=== PATIENT | male | born 1930 | race Caucasian/White ===

== ENCOUNTER 2016-09-05 03:26 | Emergency (ER) | payer MEDICARE, BC ==
[~2016-09-05] VITALS: Ht 180.3 cm; Wt 93.0 kg
[~2016-09-05 03:26] MED LIST: HYDR-3583 PO; LEVO250T33 PO; LEVO750T6 PO; TMSL.4C PO
--- OUTSIDE RECORDS SUMMARY | 2016-09-05 03:34 | XMS REPORT | Continuity of Care Document ---
Author Author [facility] Organization [facility] Address Unknown Phone Unavailable Allergies Medications Problems Procedures Results Encounters ACCT No. Visit Date/Time Discharge Status Pt. Type Provider Facility Loc./Unit Complaint [id number] 12/18/2012 14:25:00 2012 23:59:59 CLS Outpatient [id number] 12/12/2012 12:15:00 2012 17:15:00 DIS Emergency
--- NOTE | 2016-09-05 03:41 | ED GU-Male ---
General Stated Complaint: CAN'T URINATE Source: patient, spouse Exam Limitations: no limitations History of Present Illness Time seen by provider: 03:36 Initial Comments Patient presents to ER by private conveyance with his with complaint of inability to urinate since about 3 this afternoon when he had a cystoscopy by Dr. Daniel in [facility]. He states that they found several small areas of concern in his bladder for cancer and's were setting him up to go back inpatient to the hospital today for biopsies. He is concerned because his bladder is full he is having a lot of pain and unable to drain his bladder on his own. He's had no fevers chills rash nausea vomiting or diarrhea. He has no constipation. Allergies and Home Medications Allergies Coded Allergies: No Known Drug Allergies (Unverified , 07/23/10) Home Medications Donepezil HCl 10 Mg Tablet, 10 MG PO DAILY, #90 (Reported) Lisinopril 40 Mg Tablet, 40 MG PO DAILY, #90 (Reported) [place] 3 Polyunsat Fatty Acids 1,000 Mg Cap, 1,000 MG PO BID, (Reported) Oxybutynin Chloride 5 Mg Tablet, 5 MG PO BID, #60 (Reported) Simvastatin 20 Mg Tablet, 10 MG PO DAILY, #45 (Reported) Constitutional: No chills, No diaphoresis, No malaise Respiratory: No cough, No short of breath Cardiovascular: No chest pain, No edema Gastrointestinal: No abdominal pain, No constipation, No diarrhea, No nausea Genitourinary: denies burning, denies discharge Skin: No pruritus, No rash Past Eqniflq-Ohswvf-Emgzlw Hx Patient Social History Alcohol Use: Denies Use Recreational Drug Use: No Recent Foreign Travel: No Contact w/Someone Who Travel: No Immunizations Up To Date Date of Influenza Vaccine: Dec 10, 2012 Respiratory Hx Respiratory Disorders: No Cardiovascular Hx Cardiac Disorders: No Reproductive System Hx Reproductive Disorders: No Sexually Transmitted Disease: No Genitourinary Hx Genitourinary Disorders: Yes Genitourinary Disorders: Prostate Problems, Kidney Stones Gastrointestinal Hx Gastrointestinal Disorders: No Musculoskeletal Hx Musculoskeletal Disorders: No Endocrine Hx Endocrine Disorders: No HEENT HX ENT Disorders: Yes Hearing Impairment: Hard of Hearing Cancer Hx Cancer: Yes Cancer: Prostate Psychosocial Hx Psychiatric Problems: No Integumentary HX Skin/Integumentary Disorder: No Blood Transfusions Hx Blood Disorders: No Physical Exam Vital Signs Vital Sign - Last 12Hours 09/05/16 03:35 Temp 98.5 Pulse 68 Resp 20 B/P (MAP) 149/73 Capillary Refill : General Appearance: WD/WN, mild distress Cardiovascular: normal peripheral pulses, regular rate, rhythm Respiratory: lungs clear, normal breath sounds Gastrointestinal: normal bowel sounds, soft, tenderness (suprapubic) Male: normal genitalia, no hernia Back: normal inspection, no CVA tenderness Neurologic/Psychiatric: alert, oriented x 3 Skin: normal color, warm/dry Progress/Results/Core Measures Results/Orders Lab Results Laboratory Tests Test 09/05/16 04:00 Range/Units Urine Color YELLOW Urine Clarity SLIGHTLY CLOUDY Urine pH 7 5-9 Urine Specific [place] 1.010 L 1.016-1.022 Urine Protein 2+ H NEGATIVE Urine Glucose (UA) NEGATIVE NEGATIVE Urine Ketones NEGATIVE NEGATIVE Urine Nitrite NEGATIVE NEGATIVE Urine Bilirubin NEGATIVE NEGATIVE Urine Urobilinogen NORMAL NORMAL MG/DL Urine Leukocyte Esterase 2+ H NEGATIVE Urine RBC (Auto) 5+ H NEGATIVE Urine RBC TNTC H /HPF Urine WBC 5-10 H /HPF Urine Crystals NONE /LPF Urine Bacteria TRACE /HPF Urine Casts NONE /LPF Urine Mucus NEGATIVE /LPF Urine Culture Indicated YES My Orders Orders - JDTIERNEY J Lee Cath Insertion (09/05/16 03:41) Urinalysis (09/05/16 03:41) Urine Culture (09/05/16 04:00) Lidocaine 2% (Urojet) (Xylocaine Urojet) (09/05/16 04:20) Ceftriaxone Injection (Rocephin Injectio (09/05/16 05:00) Vital Signs/I&O Vital Sign - Last 12Hours 09/05/16 03:35 Temp 98.5 Pulse 68 Resp 20 B/P (MAP) 149/73 Progress Note : Time: 05:32 Progress Note Urinalysis not totally convincing for infection but we'll go ahead and cover him with Rocephin and have him call his urologist in the morning. Leave the indwelling Lee catheter. He was able to avoid approximately 250 cc and a bladder scan postvoid residual showed about 460. Departure Impression Impression: Primary Impression: Urinary retention Additional Impression: Urinary tract infection Qualified Codes: N30.01 - Acute cystitis with hematuria Disposition: HOME, SELF-CARE Condition: Improved Departure-Patient Inst. Decision time for Depature: 05:33 Referrals: ARVIN QUARLES MD (PCP) Primary Care Physician KALYAN MACEDO DO (Family) Primary Care Physician Patient Instructions: Lee Catheter, Male Add. Discharge Instructions: You're being sent home with a Lee catheter and leg bag with instructions on how to drain it. If you start having fever or chills or nausea then you should return to the ER. You will be covered for the next 24 hours with the shot of antibiotics that we have given you in the ER. 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 This morning you need to call the urologist and discuss with him the changes and follow his instructions. Scripts Cephalexin (Cephalexin) 500 Mg Tablet 500 MG PO BID for 10 Days, #20 TAB 0 Refills Prov: TIERNEY MILES 09/05/16 Copy Copies To 1: ARVIN QUARLES MD, TITUS J Sep 05, 2016 03:41
[2016-09-05 04:07] LABS: BILIRUBIN,URINE NEGATIVE (NEGATIVE); KETONES,URINE NEGATIVE (NEGATIVE); LEUKOCYTE ESTERASE ,URINE 2+ (NEGATIVE); NITRITE,URINE NEGATIVE (NEGATIVE); PH,URINE 7 (5-9); PROTEIN,URINE 2+ (NEGATIVE); UROBILINOGEN,URINE NORMAL (NORMAL)
[2016-09-05] MEDS: LIDOCAINE UROJET 2% GEL 10 ML PKG ONE (04:30)
[2016-09-05] MEDS ORDERED: cefTRIAXone INJECTION 1,000 MG in NS (IVPB) 50 ML IV ONE (05:00)
[2016-09-05] MEDS ORDERED: OMG1KC PO (05:19)
[2016-09-05] MEDS ORDERED: OXYB5TAB9 PO (05:19)
[2016-09-05] MEDS ORDERED: SIMV20TA3 PO (05:19)
[2016-09-05] MEDS ORDERED: DONE10TA41 PO (05:19)
[2016-09-05] MEDS ORDERED: LISI40TA PO (05:19)
[2016-09-05] MEDS ORDERED: CALC600T12 PO (05:34)
[2016-09-05] MEDS ORDERED: MULT-1029 PO (05:34)
[2016-09-05] MEDS ORDERED: ASPI-999 PO (05:34)
[2016-09-05] MEDS ORDERED: POTA99TA18 PO (05:34)
[2016-09-05] MEDS ORDERED: MAGN400C PO (05:34)
[2016-09-05] MEDS ORDERED: CEPH500T PO (05:37)
[2016-09-05] MEDS: cefTRIAXone 1 GM (ROCEPHIN) VIAL IM ONE (05:44)
[2016-09-05] MEDS: LIDOCAINE 1% INJ 20 ML (XYLOCAINE) VIAL INJ ONE (05:44)
[2016-09-05 06:10] VITALS: BP 157/81
== END 2016-09-05 06:10 | disposition home or self-care (01) ==
LOC: EDUNIT# 03:26 → ER 03:30
DX: N39.0 Urinary tract infection, site not specified (principal); Z87.442 Personal history of urinary calculi; Z85.46 Personal history of malignant neoplasm of prostate
CPT/HCPCS: 51702; 81000; 87088; 96372

== ENCOUNTER 2016-09-06 20:33 | Emergency (ER) | payer MEDICARE, BC ==
[~2016-09-06] VITALS: Ht 180.3 cm; Wt 93.0 kg
[~2016-09-06 20:33] MED LIST changes: +ASPI-999 PO; +CALC600T12 PO; +CEPH500T PO; +DONE10TA41 PO; +LISI40TA PO; +MAGN400C PO; +MULT-1029 PO; +OMG1KC PO; +OXYB5TAB9 PO; +POTA99TA18 PO; +SIMV20TA3 PO
--- NOTE | 2016-09-06 20:54 | ED GU-Male ---
General Chief Complaint: -Male Stated Complaint: CATHETER PROBLEMS Nursing Triage Note: patient reports sepulveda wouldn't drain Source: patient, spouse Exam Limitations: no limitations History of Present Illness Time seen by provider: 20:45 Initial Comments Patient was seen yesterday with inability urinate and a coud Sepulveda catheter was placed. Patient comes in today with pain in his penis and super. Region and inability to pass urine again. He is drinking adequate fluids per him and his . He has no fevers chills nausea vomiting diarrhea. He did take a pain pill that he had left over for his previous operation. He has planned a procedure for biopsy of 2 masses in his bladder with his urologist on Friday in 3 days from now. Allergies and Home Medications Allergies Coded Allergies: No Known Drug Allergies (Unverified , 07/23/10) Home Medications Aspirin 81 Mg Tab.chew, 81 MG PO DAILY, (Reported) Calcium Carbonate 600 Mg Tablet, 2,400 MG PO DAILY, (Reported) Cephalexin 500 Mg Tablet, 500 MG PO BID for 10 Days, #20 Ref 0 Prescribed by: TIERNEY MILES on 09/05/16 0537 Donepezil HCl 10 Mg Tablet, 10 MG PO DAILY, #90 (Reported) Lisinopril 40 Mg Tablet, 40 MG PO DAILY, #90 (Reported) Magnesium Oxide 400 Mg Capsule, 400 MG PO DAILY, (Reported) Multivit-Min/FA/Lycopene/Lut 1 Each Tablet, 1 EACH PO DAILY, (Reported) [place] 3 Polyunsat Fatty Acids 1,000 Mg Cap, 1,000 MG PO BID, (Reported) Oxybutynin Chloride 5 Mg Tablet, 5 MG PO BID, #60 (Reported) Potassium Gluconate 99 Mg Tablet.er, 99 MG PO DAILY, (Reported) Simvastatin 20 Mg Tablet, 10 MG PO DAILY, #45 (Reported) Constitutional: No chills, No fever, No malaise Cardiovascular: No chest pain, No syncope Gastrointestinal: see HPI, abdominal pain (Suprapubic suprapubic), No constipation, No diarrhea, No nausea, No vomiting Genitourinary: see HPI, burning, denies discharge, denies dysuria, denies frequency, denies flank pain, pain Musculoskeletal: see HPI, No back pain, No joint pain Skin: No pruritus, No rash Past Ssoomns-Hxewpe-Mnwjvv Hx Patient Social History Alcohol Use: Denies Use Recreational Drug Use: No Smoking Status: Never a Smoker 2nd Hand Smoke Exposure: No Recent Foreign Travel: No Contact w/Someone Who Travel: No Recent Infectious Disease Expo: No Recent Hopitalizations: No Immunizations Up To Date Date of Influenza Vaccine: Dec 10, 2012 Seasonal Allergies Seasonal Allergies: Yes Surgeries Surgeries: Prostatectomy Respiratory Hx Respiratory Disorders: No Cardiovascular Hx Cardiac Disorders: No Cardiac Disorders: High Cholesterol, Hypertension Reproductive System Hx Reproductive Disorders: No Sexually Transmitted Disease: No Genitourinary Hx Genitourinary Disorders: Yes Genitourinary Disorders: Prostate Problems, Kidney Stones Gastrointestinal Hx Gastrointestinal Disorders: No Musculoskeletal Hx Musculoskeletal Disorders: No Endocrine Hx Endocrine Disorders: No HEENT HX ENT Disorders: Yes Hearing Impairment: Hard of Hearing Cancer Hx Cancer: Yes Cancer: Prostate Psychosocial Hx Psychiatric Problems: No Integumentary HX Skin/Integumentary Disorder: No Blood Transfusions Hx Blood Disorders: No Physical Exam Vital Signs Vital Sign - Last 12Hours 09/06/16 20:41 Temp 98.2 Pulse 80 Resp 18 B/P (MAP) 165/78 Pulse Ox 94 Capillary Refill : Less Than 3 Seconds General Appearance: WD/WN, no apparent distress HEENT: PERRL/EOMI, pharynx normal Cardiovascular: normal peripheral pulses, regular rate, rhythm Respiratory: chest non-tender, lungs clear Gastrointestinal: normal bowel sounds, non tender, soft, No distended Male: normal genitalia (Sepulveda catheter in place and a leg bag dark yellow urine after irrigation with 30 cc of normal saline and gentle aspiration. A modest size dark red blood clot was passed.) Extremities: normal range of motion, normal capillary refill Neurologic/Psychiatric: alert, oriented x 3 Progress/Results/Core Measures Results/Orders Vital Signs/I&O Vital Sign - Last 12Hours 09/06/16 20:41 Temp 98.2 Pulse 80 Resp 18 B/P (MAP) 165/78 Pulse Ox 94 Blood Pressure Mean: 107 Progress Note : Time: 20:52 Progress Note Past o'clock and thought the patient had a do gentle irrigation with 30 cc of sterile water and gentle aspiration. We'll send him home with some new 60 cc irrigation syringes and alcohol wipes as well as nursing instruction on how to utilize these. He is now freely passing lorne colored urine after the clot Cleared. He is taking antibiotics as prescribed. Departure Impression Impression: Primary Impression: Urethral obstruction Additional Impression: Urinary tract infection Qualified Codes: N30.01 - Acute cystitis with hematuria Disposition: HOME, SELF-CARE Condition: Improved Departure-Patient Inst. Decision time for Depature: 20:55 Referrals: ARVIN QUARLES MD (PCP/Family) Primary Care Physician Patient Instructions: How to Care for Your Sepulveda Catheter, Male Add. Discharge Instructions: If you're unable to pass urine from her Sepulveda catheter you should take a clean irrigation syringe out wipe all the connections down with alcohol wipes and then gently push 30 cc of sterile normal saline into the catheter. If you do not have normal saline you may also use sterile water. Then allow the urine to drain. If it does not drain you may apply gentle suction using the syringe. If you're still unable to get urine the past after doing this for you're having fevers, chills, nausea, intense pain then you should return to the ER immediately. Do not put more than 60 cc total in the bladder at a time. All discharge instructions reviewed with patient and/or family. Voiced understanding. Copy Copies To 1: ARVIN QUARLES MD, TITUS J Sep 06, 2016 20:54
[2016-09-06 21:07] VITALS: BP 165/78
--- OUTSIDE RECORDS SUMMARY | 2016-09-10 08:18 | XMS REPORT | Continuity of Care Document ---
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 Procedures Results Test Result Range Complete urinalysis with reflex to culture - 09/05/16 04:00 Urine color determination YELLOW NRG Urine clarity determination SLIGHTLY CLOUDY NRG Urine pH measurement by test strip 7 5- 9 Specific gravity of urine by test strip 1.010 1.016-1.022 Urine protein assay by test strip, semi-quantitative 2+ NEGATIVE Urine glucose detection by automated test strip NEGATIVE NEGATIVE Erythrocytes detection in urine sediment by light microscopy 5+ NEGATIVE Urine ketones detection by automated test strip NEGATIVE NEGATIVE Urine nitrite detection by test strip NEGATIVE NEGATIVE Urine total bilirubin detection by test strip NEGATIVE NEGATIVE Urine urobilinogen measurement by automated test strip (mass/volume) NORMAL NORMAL Urine leukocyte esterase detection by dipstick 2+ NEGATIVE Automated urine sediment erythrocyte count by microscopy (number/high power field) TNTC NRG Automated urine sediment leukocyte count by microscopy (number/high power field ) [HPF] NRG Bacteria detection in urine sediment by light microscopy TRACE NRG Crystals detection in urine sediment by light microscopy NONE NRG Casts detection in urine sediment by light microscopy NONE NRG Mucus detection in urine sediment by light microscopy NEGATIVE NRG Complete urinalysis with reflex to culture YES NRG Bacterial urine culture - 09/05/16 04:00 Bacterial urine culture NG NRG Encounters ACCT No. Visit Date/Time Discharge Status Pt. Type Provider Facility Loc./Unit Complaint [id number] 09/06/2016 20:35:00 2016 21:07:00 DIS Emergency TIERNEY MILES MD [facility] ER CATHETER PROBLEMS [id number] 09/05/2016 03:30:00 2016 06:10:00 DIS Emergency TIERNEY MILES MD [facility] ER CAN'T URINATE [id number] 12/18/2012 14:25:00 2012 23:59:59 CLS Outpatient KIM MORIN APRN [facility] RAD ABNORMAL CT [id number] 12/12/2012 12:15:00 2012 17:15:00 DIS Emergency
== END 2016-09-06 21:07 | disposition home or self-care (01) ==
LOC: EDUNIT# 20:33 → ER 20:35
DX: N13.9 Obstructive and reflux uropathy, unspecified (principal); N39.0 Urinary tract infection, site not specified; I10 Essential (primary) hypertension; E78.00 Pure hypercholesterolemia, unspecified; Z87.442 Personal history of urinary calculi; Z79.82 Long term (current) use of aspirin; Z90.79 Acquired absence of other genital organ(s); Z96.0 Presence of urogenital implants
CPT/HCPCS: 99282

== ENCOUNTER 2017-02-16 07:02 | Emergency (ER) | payer MEDICARE, BC ==
[~2017-02-16] VITALS: Ht 180.3 cm; Wt 95.3 kg
--- OUTSIDE RECORDS SUMMARY | 2017-02-16 07:08 | XMS REPORT | Encounter Summary ---
Author Author [facility] Organization [facility] Address Unknown Phone Unavailable Care Team Providers Care Loom Starter Name Role Phone PCP Unavailable Reason for Visit * Reason Comments Urinary Problem Encounter Details Date Type Department Care Team Description 02/13/2017 Telephone [facility] Woo Hernandez MD Urinary Problem Physicians - Urology [address] [facility] [address] [place] [address] [address] [facility] [place] [id number] Social History Tobacco Use Types Packs/Day Years Used Date Never Smoker Smokeless Tobacco: Never Used Alcohol Use Drinks/Week oz/Week Comments No Sex Assigned at Date Recorded Not on file as of this encounter Miscellaneous Notes * Telephone Encounter - Woo Hernandez MD - 02/13/2017 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 Patient has significant suprapubic discomfort and the urge to urinate but has had only small amount of urine per urethra. No abdominal pain otherwise and denies fevers, chills, nausea or vomiting. Advised patient to be evaluated at nearest ER as he is likely needing placement of catheter. Asked patient to call back tomorrow AM if he needed catheter placed in order to further guide him. Patient agreeable with above plan. Woo Hernandez MD PGY-2 Urology Resident in this encounter Plan of Treatment Not on fileas of this encounter Visit Diagnoses Not on filein this encounter
--- OUTSIDE RECORDS SUMMARY | 2017-02-16 07:08 | XMS REPORT | Clinical Summary ---
Author Author [facility] Organization [facility] Address Unknown Phone Unavailable Care Team Providers Care Cost Estimating Clerk Name Role Phone PCP Unavailable Source Comments Some departments are not documenting in the electronic medical record. If you do not see the information that you expected, contact Release of Information in the Health Information Management department at [phone] for further assistance in locating additional records.[facility] Allergies No Known Allergies Current Medications Prescription Sig. Disp. Refills Start End Date Status Date oxybutynin chloride Take 5 mg by mouth twice Active (DITROPAN) 5 mg tablet daily. simvastatin (ZOCOR) 20 mg Take 20 mg by mouth at Active tabletIndications: half bedtime daily. tab once daily Indications: half tab once daily lisinopril (PRINIVIL, Take 40 mg by mouth Active ZESTRIL) 40 mg tablet daily. donepezil (ARICEPT) 10 mg Take 10 mg by mouth at Active tablet bedtime daily. CALCIUM POIndications: 2 Take 600 mg by mouth Active tabs twice daily twice daily. Indications: 2 tabs twice daily Potassium 99 mg tab Take 1 tablet by mouth Active daily. Magnesium 250 mg tab Take 1 tablet by mouth Active daily. CRANBERRY FRUIT EXTRACT Take 1 tablet by mouth Active (CRANBERRY PO) daily. oxyCODONE (ROXICODONE, Take 1 tablet by mouth 10 tablet 0 10/25/19 Active OXY-IR) 5 mg tablet every 4 hours as needed 17 (moderate to severe pain) polyethylene glycol 3350 Take 17 g by mouth twice 238 g 0 02/14/20 Active (MIRALAX) 17 gram/dose daily. 17 powder phenazopyridine Take 1 tablet by mouth 10 tablet 0 02/14/20 Active (PYRIDIUM) 200 mg tablet three times daily as 17 17 needed for Pain for up to 3 days. Take after meals. acetaminophen (TYLENOL) Take 1 tablet by mouth 0 02/14/20 Active 500 mg tablet every 6 hours as needed 17 for Pain. Max of 4,000 mg of acetaminophen in 24 hours. ciprofloxacin (CIPRO) 250 Take 1 tablet by mouth 3 tablet 0 02/14/20 Active mg tablet every 12 hours. 17 phenazopyridine Take 1 tablet by mouth 10 tablet 1 10/25/19 Discontin (PYRIDIUM) 200 mg tablet three times daily as 17 17 ued needed for Pain. Take after meals for up to [address] 1 tablet under 30 tablet 2 10/25/19 Discontin (LEVSIN/SL) 0.125 mg tongue every 4 hours as 17 17 ued sublingual tablet needed (bladder spasms). Active Problems Problem Noted Date Bladder cancer (HCC) 10/17/2016 Overview: Added automatically from request for surgery [id number] Malignant neoplasm of overlapping sites of bladder (HCC) 09/10/2016 Overview: 86 year old male referred to Dr. Evans on 08/08/16 for evaluation of gross hematuria. Had blood in his urine approximately 6-8 months. Cystoscopy findings of left bladder wall tumor. Patient with history of prostate cancer in 1991 treated with radical prostatectomy. 08/08/16 Cxbladder detect score: 0.43 08/26/16 PSA: <0.01 08/27/16 Creatinine: 1.1 GFR 68 09/11/15 Cystoscopy, dilation of bladder neck contracture with Fazal sound to 28 Yemen[place], biopsy of the bladder with mapping: cTis on L, R, and posterior bladder wall biopsies. [facility] Second Opinion pathology: Same as above. Muscularis propria present. 09/24/16 Bone scan impression: No scintigraphic evidence for blastic metastasis 09/26/16 CT Urogram: Bilateral nephrolithiasis, small bilateral renal cortitcal cysts. No hydronephrosis. Previous prostatectomy. No lymphadenectomy. Colonic diverticulosis without diverticulitis L ast Assessment & Plan: Kevin Gilbert is a 86 y.o. male who presents for evaluation of cTis bladder cancer. After discussing the risks and benefits of blue light cystoscopy with TURBT, the patient has chosen to proceed with this management option. - to OR for Blue light cystoscopy with TURBT on 10/24/16 - Case requested and consented Encounters Date Type Specialty Care Team Description 02/13/2017 Hospital Elgin Solorzano, Bladder cancer (HCC) Encounter MD 02/13/2017 Telephone Urology Woo Hernandez MD Urinary Problem 02/13/2017 Pharmacy Visit 02/13/2017 Procedure Pass 02/13/2017 Surgery Elgin Solorzano, CYSTOSCOPY WITH TRANSURETHRAL RESECTION OF BLADDER TUMOR 02/12/2017 Anesthesia Catalina Kirkpatrick, SYSTEMS TECHNOLOGIST Event 01/17/2017 Prep for Case Oncology Elgin Solorzano MD 01/08/2017 Telephone Urology Elgin Solorzano, Results 01/03/2017 Hospital Lab Elgin Solorzano, Malignant neoplasm of Encounter overlapping sites of bladder (HCC) 01/03/2017 Procedure visit Urology Elgin Solorzano, Malignant neoplasm of MD overlapping sites of bladder (HCC) (Primary Dx) 01/03/2017 Pharmacy Visit from Last 3 Months Family History Medical History Relation Name Comments Diabetes Paternal Grandfather Relation Name Status Comments Paternal Grandfather Social History Tobacco Use Types Packs/Day Years Used Date Never Smoker Smokeless Tobacco: Never Used Alcohol Use Drinks/Week oz/Week Comments No Sex Assigned at Date Recorded Not on file Last Filed Vital Signs Vital Sign Reading Time Taken Blood Pressure 168/85 02/13/2017 1:00 PM INGREDIENT SCALER Pulse 67 02/13/2017 1:15 PM INGREDIENT SCALER Temperature 36.3 C (97.3 F) 02/13/2017 12:05 PM INGREDIENT SCALER Respiratory Rate - - Oxygen Saturation 97% 02/13/2017 1:15 PM INGREDIENT SCALER Inhaled Oxygen - - Concentration Weight 94.6 kg (208 lb 8.9 oz) 02/13/2017 10:09 AM INGREDIENT SCALER Height 180.3 cm (5' 11") 02/13/2017 10:09 AM INGREDIENT SCALER Body Mass Index 29.09 02/13/2017 10:09 AM INGREDIENT SCALER Plan of Treatment Health Maintenance Due Date Last Done Comments PHYSICAL (COMPREHENSIVE) 08/25/1939 EXAM PERTUSSIS VACCINE 08/25/1943 TETANUS VACCINE 1949 SHINGLES VACCINE 1992 PREVNAR/PNEUMOVAX (#1) 1997 INFLUENZA VACCINE 10/01/2016 Procedures Procedure Name Priority Date/Time Associated Diagnosis Comments CYSTOSCOPY WITH 02/13/2017 Bladder cancer (HCC) TRANSURETHRAL RESECTION 11:30 AM INGREDIENT SCALER OF BLADDER TUMOR Special Needs 01/21 PER CHANGE FORM, CASE MOVED FROM 02/12 TO 02/13, REQUEST 1130 START - BP (1047) CO CYSTOURETHROSCOPY Routine 01/06/2017 Malignant neoplasm of Results for this 9:32 AM INGREDIENT SCALER overlapping sites of procedure are in the bladder (HCC) results section. from Last 3 Months Results * CYTOGENETICS SCAN (01/13/2017 2:44 PM) Narrative Ordered by an unspecified provider. * CYSTOSCOPY (01/06/2017 9:32 AM) Specimen Performing Laboratory IN CLINIC Narrative Elgin Solorzano MD 01/06/20179:32 AM Date : 01/06/2017 Surgeon: Elgin Solorzano MD, [facility] Preoperative Diagnosis: bladder cancer Postoperative Diagnosis: bladder cancer Principal Procedure: Flexible Cystoscopy Description of procedure: After the consent was obtained, the patient was taken to the cystoscopy suite. The patient was patient was placed in the lithotomy position. Two percent lidocaine jelly was administered into the urethral for local anesthesia. The genital area was prepped and draped in the normal sterile fashion. A flexible cystoscope was advanced into the patient's urethra and then into the bladder. The bladder was systematically examined and visualized in its entirety. Both ureteral orifices were note to be normal in appearance and location. On the posterior wall of the bladder there was a fair bit of erythema.There was no obvious definitive tumor.The scope was then removed. The patient tolerated the procedure well. He was given antibiotics to cover the instrumentation. He was discharged from the clinic in stable condition. * CHROMOSOMES FISH URINE (01/03/2017 3:06 PM) Component Value Ref Range Chromosomes Fish Urine SEE BIT TAPPER FOR REPORT Specimen Performing Laboratory MAIN LAB [address] [place] [address] * NON-TRAFFIC OR SYSTEM DISPATCHER CYTOLOGY (BODY FLUIDS/TISSUE) (01/03/2017 1:18 PM) Component Value Ref Range Cytology [facility] [email or web address] Department of Pathology and Laboratory Medicine [address] [place] [address] Surgical Pathology Office: [phone] CYTOLOGY REPORT NAME: KEVIN GILBERT CYTOLOGY #: [id number] MR #: [id number] ALT ID #: [id number] #: [id number] LOCATION: UROL DATE OF PROCEDURE: 01/03/2017 AGE: 86 SEX: M DATE RECEIVED: 01/06/2017 : 1932 TIME RECEIVED: 13:18 PHYSICIAN: ELGIN SOLORZANO MD DATE OF REPORT: 01/07/2017 COPY TO: DATE OF PRINTIN01/07/2017 Material Received: A: Urine (Voided) History: 86-year old male with history of urothelial carcinoma in situ, status post BCG treatment. Gross Description: (1tp) 20ml clear, yellow fluid. ################################################## ###################### Final Diagnosis: A. Urine (Voided): Negative for high grade urothelial carcinoma. Acute inflammation. Attestation: By this signature, I attest that I have personally formulated the final interpretation expressed in this report and that the above diagnosis is based upon my examination of the slides and/or other material indicated in this report. +++Electronically Signed Out By+++ xc/01/07/2017 Interpreted by: Farnaz Acuna MD, PhD NAA Ceja Resident Specimen Performing Laboratory [facility] RESULTS from Last 3 Months
--- OUTSIDE RECORDS SUMMARY | 2017-02-16 07:08 | XMS REPORT | Continuity of Care Document ---
Author Author [facility] Organization [facility] Address Unknown Phone Unavailable Care Team Providers Care Risk Developer Name Role Phone [employer] Unavailable Unavailable Problems Medications Allergies, Adverse Reactions, Alerts Immunizations Results Vital Signs Encounters Location Location Details Encounter Type Encounter Number Reason For Visit Attending Provider ADM Date DC Date Status Source SPECIMEN [id number] ELGIN LOWERY 10/07/201608/2016 Active [facility] OP SURGERY [id number] ELGIN LOWERY 10/24/2016 Active [facility] O ELGIN LOWERY 01/03/2017 Active [facility] Procedures Plan of Care Social History Assessment and Plan Family History Value Date Source Advance Directives Order Name Results Value Date Source
--- OUTSIDE RECORDS SUMMARY | 2017-02-16 07:09 | XMS REPORT | Encounter Summary ---
Author Author [facility] Organization [facility] Address Unknown Phone Unavailable Care Team Providers Care Graphic Designer Name Role Phone PCP Unavailable Encounter Details Date Type Department Care Team Description 02/13/2017 Procedure Pass Main Operating Room [address] [place] [address] Social History Tobacco Use Types Packs/Day Years Used Date Never Smoker Smokeless Tobacco: Never Used Alcohol Use Drinks/Week oz/Week Comments No Sex Assigned at Date Recorded Not on file as of this encounter Plan of Treatment Not on fileas of this encounter Visit Diagnoses Not on filein this encounter
--- OUTSIDE RECORDS SUMMARY | 2017-02-16 07:09 | XMS REPORT | Encounter Summary ---
Author Author [facility] Organization [facility] Address Unknown Phone Unavailable Care Team Providers Care Bucket Pusher Name Role Phone PCP Unavailable Reason for Visit * Reason Comments Bladder Cancer * Outpatient Surgery (Routine) Status Reason Specialty Diagnoses / Referred By Referred To Procedures Contact Contact No Auth Needed Urology Diagnoses Kaia Solorzano Urology Malignant Jean Villatoro MD 2ND FLOOR POD A neoplasm of [address] MED OFFICE [place]LDG sites of bladder [place] [address] [place] (HCC) [place] [address] RET - F/U AFTER [address] Phone: BCG TREATMENTS W/ CYSTO [phone] P Fax: rocedures [phone] [place] CYSTOURETHROSCOP Y PROCEDURE - 30 Encounter Details Date Type Department Care Team Description 01/03/2017 Procedure visit [facility] Jean Solorzano , Malignant neoplasm of Physicians - Urology overlapping sites of 2ND FLOOR POD A [address] bladder (HCC) (Primary [address] [place] [address] Dx) [place] [address] [place] [phone] [address] [phone] Social History Tobacco Use Types Packs/Day Years Used Date Never Smoker Smokeless Tobacco: Never Used Alcohol Use Drinks/Week oz/Week Comments No Sex Assigned at Date Recorded Not on file as of this encounter Last Filed Vital Signs Vital Sign Reading Time Taken Blood Pressure 162/71 01/03/2017 2:37 PM CDT Pulse 71 01/03/2017 2:37 PM CDT Temperature - - Respiratory Rate - - Oxygen Saturation - - Inhaled Oxygen - - Concentration Weight 92 kg (202 lb 12.8 oz) 01/03/2017 2:37 PM CDT Height 180.3 cm (5' 11") 01/03/2017 2:37 PM CDT Body Mass Index 28.28 01/03/2017 2:37 PM CDT in this encounter Progress Notes * Jena Solorzano MD - 01/03/2017 2:30 PM CDT Formatting of this note may be different from the original. Date of Service: 01/03/2017 Subjective: Kevin Gilbert is a 86 y.o. male. History of Present Illness 86 yo white male with a history of prostate cancer s/p RRP followed by XRT in 1991. The patient had a 6-8 month history of gross hematuria and was found to have CIS. He was counseled regarding cystectomy but elected to try a course of TURBT/BCG initially. He has completed his BCG and returns today. He continues to be incontinent. Review of Systems Genitourinary: Incontinence Objective: CALCIUM PO Take 600 mg by mouth twice daily. Indications: 2 tabs twice daily CRANBERRY FRUIT EXTRACT (CRANBERRY PO) Take 1 tablet by mouth daily. donepezil (ARICEPT) 10 mg tablet Take 10 mg by mouth at bedtime daily. hyoscyamine sulfate (LEVSIN/SL) 0.[address] 1 tablet under tongue every 4 hours as needed (bladder spasms). lisinopril (PRINIVIL, ZESTRIL) 40 mg tablet Take 40 mg by mouth daily. Magnesium 250 mg tab Take 1 tablet by mouth daily. oxybutynin chloride (DITROPAN) 5 mg tablet Take 5 mg by mouth twice daily. oxyCODONE (ROXICODONE, OXY-IR) 5 mg tablet Take 1 tablet by mouth every 4 hours as needed (moderate to severe pain) phenazopyridine (PYRIDIUM) 200 mg tablet Take 1 tablet by mouth three times daily as needed for Pain. Take after meals for up to 2 days. Potassium 99 mg tab Take 1 tablet by mouth daily. simvastatin (ZOCOR) 20 mg tablet Take 20 mg by mouth at bedtime daily. Indications: half tab once daily Vitals: 01/03/17 1437 BP: 162/71 Pulse: 71 Weight: 92 kg (202 lb 12.8 oz) Height: 180.3 cm (71") Body mass index is 28.28 kg/(m^2). Physical Exam Constitutional: He appears well-developed and well-nourished. No distress. Genitourinary: Penis normal. Skin: He is not diaphoretic. Cysto Some red areas remain but it is difficult to say whether this is inflammation or recurrent disease. No obvious definitive tumor. Assessment and Plan: 1. 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 Will send cytology and FISH if positive then will need repeat TURBT. If not then will follow up in 3 months and then start BCG maintenance. in this encounter Procedure Notes * Jean Solorzano MD - 01/03/2017 2:30 PM CDT Associated Order(s): CYSTOSCOPY Procedure(s): MS CYSTOURETHROSCOPY Pre-Procedure Diagnose(s): Malignant neoplasm of overlapping sites of bladder ( HCC) Date : 01/06/2017 Surgeon: Jean Solorzano MD, [facility] Preoperative Diagnosis: bladder cancer Postoperative Diagnosis: bladder [...] bladder there was a fair bit of erythema. There was no obvious definitive tumor. The scope was then removed. The patient tolerated the procedure well. He was given antibiotics to cover the instrumentation. He was discharged from the clinic in stable condition. in this encounter Plan of Treatment Name Priority Associated Diagnoses Order Schedule CYTOLOGY URINES Routine Malignant neoplasm of Ordered: 01/03/2017 overlapping sites of bladder (HCC) CHROMOSOMES FISH URINE Routine Malignant neoplasm of Ordered: 01/03/2017 overlapping sites of bladder (HCC) as of this encounter Procedures Procedure Name Priority Date/Time Associated Diagnosis Comments MS CYSTOURETHROSCOPY Routine 01/06/2017 Malignant neoplasm of Results for this 9:32 AM CLOTH SHRINKING SUPERVISOR overlapping sites of procedure are in the bladder (HCC) results section. in this encounter Results * CYTOGENETICS SCAN (01/13/2017 2:44 PM) Narrative Ordered by an unspecified provider. * CYSTOSCOPY (01/06/2017 9:32 AM) Specimen Performing Laboratory IN CLINIC Narrative Jean Solorzano MD 01/06/20179:32 AM Date : 01/06/2017 Surgeon: Jean Solorzano MD, [facility] Preoperative Diagnosis: bladder cancer Postoperative Diagnosis: bladder [...] discharged from the clinic in stable condition. in this encounter Visit Diagnoses Diagnosis Malignant neoplasm of overlapping sites of bladder (HCC) - Primary Malignant neoplasm of other specified sites of bladder in this encounter
--- OUTSIDE RECORDS SUMMARY | 2017-02-16 07:09 | XMS REPORT | Encounter Summary ---
Author Author [facility] Organization [facility] Address Unknown Phone Unavailable Care Team Providers Care Radiology Special Procedure Tech Name Role Phone PCP Unavailable Reason for Visit * Reason Comments Results Encounter Details Date Type Department Care Team Description 01/08/2017 Telephone [facility] Jean Solorzano, Results Physicians - Urology MD [address]ND FLO[address] POD [address] [place] [address] [place] [phone] [phone] Social History Tobacco Use Types Packs/Day Years Used Date Never Smoker Smokeless Tobacco: Never Used Alcohol Use Drinks/Week oz/Week Comments No Sex Assigned at Date Recorded Not on file as of this encounter Miscellaneous Notes * Telephone Encounter - Nathalia Gusman - 01/08/2017 10:55 AM ACID LOADER Notified pt of urine cytology results negative for high grade urothelial carcinoma. Will call with FISH results once available. No questions. * Telephone Encounter - DelphineamberlyNathalia - 01/08/2017 10:55 AM ACID LOADER ----- Message from Jean Solorzano MD sent at 01/07/2017 5:56 PM ACID LOADER -- --- Can you let him know but let him know his FISH is still pending Thanks ----- Message ----- From: Dandre In Results Misys Sent: 01/07/2017 3:12 PM To: Jean Solorzano MD in this encounter Plan of Treatment Not on fileas of this encounter Visit Diagnoses Not on filein this encounter
--- OUTSIDE RECORDS SUMMARY | 2017-02-16 07:09 | XMS REPORT | Encounter Summary ---
Author Author [facility] Organization [facility] Address Unknown Phone Unavailable Care Team Providers Care Blister Rust Eradicator Name Role Phone PCP Unavailable Encounter Details Date Type Department Care Team Description 02/13/2017 Pharmacy Visit [facility] [address] [place] [address] Social History Tobacco Use Types Packs/Day Years Used Date Never Smoker Smokeless Tobacco: Never Used Alcohol Use Drinks/Week oz/Week Comments No Sex Assigned at Date Recorded Not on file as of this encounter Plan of Treatment Not on fileas of this encounter Visit Diagnoses Not on filein this encounter
--- OUTSIDE RECORDS SUMMARY | 2017-02-16 07:09 | XMS REPORT | Encounter Summary ---
Author Author [facility] Organization [facility] Address Unknown Phone Unavailable Care Team Providers Care Director Surface Transportation Name Role Phone PCP Unavailable Encounter Details Date Type Department Care Team Description 01/03/2017 Hospital [facility] Elgin Solorzano, Malignant neoplasm of Encounter [address] [place] [address] bladder (HCC) [place] [address] [place], [place] [phone] Social History Tobacco Use Types Packs/Day Years Used Date Never Smoker Smokeless Tobacco: Never Used Alcohol Use Drinks/Week oz/Week Comments No Sex Assigned at Date Recorded Not on file as of this encounter Medications at Time of Discharge Medication Sig. Disp. Refills Start Date End Date CALCIUM POIndications: 2 Take 600 mg by mouth tabs twice daily twice daily. Indications: 2 tabs twice daily CRANBERRY FRUIT EXTRACT Take 1 tablet by mouth (CRANBERRY PO) daily. donepezil (ARICEPT) 10 mg Take 10 mg by mouth at tablet bedtime daily. lisinopril (PRINIVIL, Take 40 mg by mouth ZESTRIL) 40 mg tablet daily. Magnesium 250 mg tab Take 1 tablet by mouth daily. oxybutynin chloride Take 5 mg by mouth twice (DITROPAN) 5 mg tablet daily. oxyCODONE (ROXICODONE, Take 1 tablet by mouth 10 tablet 0 10/24/2016 OXY-IR) 5 mg tablet every 4 hours as needed (moderate to severe pain) Potassium 99 mg tab Take 1 tablet by mouth daily. simvastatin (ZOCOR) 20 mg Take 20 mg by mouth at tabletIndications: half bedtime daily. tab once daily Indications: half tab once daily ciprofloxacin (CIPRO) 500 Take 1 tablet by mouth 2 tablet 0 201601/04/2017 mg tablet twice daily for [address] 1 tablet under 30 tablet 2 10/24/2016 (LEVSIN/SL) 0.125 mg tongue every 4 hours as sublingual tablet needed (bladder spasms). phenazopyridine Take 1 tablet by mouth 10 tablet 1 10/24/20162016 (PYRIDIUM) 200 mg tablet three times daily as needed for Pain. Take after meals for up to 2 days. as of this encounter Plan of Treatment Not on fileas of this encounter Results * CHROMOSOMES FISH URINE (01/03/2017 3:06 PM) Component Value Ref Range Chromosomes Fish Urine SEE SALES EXPERT FOR REPORT Specimen Performing Laboratory MAIN LAB [address] [place] [address] * NON-FILER REPAIRER CYTOLOGY (BODY FLUIDS/TISSUE) (01/03/2017 1:18 PM) Component Value Ref Range Cytology [facility] [email or web address] Department of Pathology and Laboratory Medicine [address] [place] [address] Surgical Pathology Office: [phone] CYTOLOGY REPORT NAME: KEVIN GILBERT CYTOLOGY #: [id number] MR #: [id number] ALT ID #: [id number] #: [id number] LOCATION: UROL DATE OF PROCEDURE: 01/03/2017 AGE: [...] Resident Specimen Performing Laboratory [facility] RESULTS in this encounter Visit Diagnoses Diagnosis Malignant neoplasm of overlapping sites of bladder (HCC) Malignant neoplasm of other specified sites of bladder in this encounter Admitting Diagnoses Diagnosis Malignant neoplasm of overlapping sites of bladder (HCC) Malignant neoplasm of overlapping sites of bladder in this encounter
--- OUTSIDE RECORDS SUMMARY | 2017-02-16 07:09 | XMS REPORT | Encounter Summary ---
Author Author [facility] Organization [facility] Address Unknown Phone Unavailable Care Team Providers Care Marine Radio Installer And Servicer Name Role Phone PCP Unavailable Reason for Visit * Auth/Cert Status Reason Specialty Diagnoses / Referred By Referred To Procedures Contact Contact Diagnoses Bladder cancer (HCC) unknown P rocedures [place] CYSTOURETHROSCOP Y W/DEST &/RMVL MED BLADDER VASYL TURBT Encounter Details Date Type Department Care Team Description 02/13/2017 Hospital Main Operating Room Jean Solorzano, Bladder cancer (HCC) Encounter [address] [place] [address] [address] [phone] [address] [place] [address] [phone] Social History Tobacco Use Types Packs/Day Years Used Date Never Smoker Smokeless Tobacco: Never Used Alcohol Use Drinks/Week oz/Week Comments No Sex Assigned at Date Recorded Not on file as of this encounter Last Filed Vital Signs Vital Sign Reading Time Taken Blood Pressure 168/85 02/13/2017 1:[address] REPORTER Pulse 67 02/13/2017 1:[address] REPORTER Temperature 36.3 C (97.3 F) 02/13/2017 12:[address] REPORTER Respiratory Rate - - Oxygen Saturation 97% 02/13/2017 1:[address] REPORTER Inhaled Oxygen - - Concentration Weight 94.6 kg (208 lb 8.9 oz) 02/13/2017 10:[address] REPORTER Height 180.3 cm (5' 11") 02/13/2017 10:[address] REPORTER Body Mass Index 29.09 02/13/2017 10:[address] REPORTER in this encounter Discharge Instructions * Discharge Instr - Other Info - Kimberly Sanchez RN - 02/13/2017 1:[address] REPORTER You received a dose of Pyridium at 1303 today on 02-13-2017, you may take next dose at 9:03 pm if needed. * Pre-Anesthesia Medication Instructions - Leela Mcclain RN - 01/21/2017 4:[address] REPORTER Formatting of this note may be different from the original. YOUR MEDICATIONS: CALCIUM PO Take 600 mg by mouth twice daily. Indications: 2 tabs twice daily CRANBERRY FRUIT EXTRACT (CRANBERRY PO) Take 1 tablet by mouth daily. donepezil (ARICEPT) 10 mg tablet Take 10 mg by mouth at bedtime daily. lisinopril (PRINIVIL, ZESTRIL) 40 mg tablet Take [...] bedtime daily. Indications: half tab once daily YOUR MEDICATION INSTRUCTIONS FOR SURGERY: Before surgery Stop the following vitamins, herbals, and natural supplements 14 days before surgery: Cranberry Stop the following medications 7 days before surgery: Anti-inflammatory medications such as ibuprofen (Advil, Motrin) and naproxen (Aleve) You may use acetaminophen (Tylenol) Morning of surgery On the morning of surgery, do NOT take these medications: Remaining vitamins/supplements- Do not take Calcium, Cranberry, Magnesium or Potassium the morning of surgery. Ointments/creams/lotions Do not take Lisinopril the morning of surgery. On the morning of surgery, take ONLY these medications with a sip (1-2 ounces) of water: NONE Other information Before surgery, please contact the clinic pharmacist with any medicine updates or questions. E-mail: [email or web address] Before going home from the hospital, please ask your doctor when you should re- start your medicines that were stopped before surgery. * Pre-Anesthesia Patient Instructions - Leela Mcclain RN - 01/21/2017 4:[address] REPORTER GENERAL INFORMATION Before you come to the hospital Make arrangements for a responsible adult to drive you home and stay with you for 24 hours following surgery. Bath/Shower Instructions Take a bath or shower with antibacterial soap the night before or the morning of your procedure. Use clean towels. Put on clean clothes after bath or shower. Avoid using lotion and oils. Sleep on clean sheets if bath or shower is done the night before procedure. Leave money, credit cards, jewelry, and any other valuables at home. [facility] is not responsible for the loss or breakage of personal items. Remove all jewelry (including piercings) before coming to the hospital. The morning of your procedure: brush your teeth and tongue do not smoke do not shave the area where you will have surgery What to bring to the hospital ID/ Insurance Card Building And Construction Manager card Official documents for legal guardianship Copy of your Living Will, Advanced Directives, and/or Durable Power of Intermodal Truck Driver Small bag with a few personal belongings Cases for glasses/hearing aids/contact lens (bring solutions for contacts) Dress in clean, loose, comfortable clothing Eating or drinking before surgery Do not eat or drink anything after 11:00 p.m. the day before your procedure ( including gum, mints, candy, or chewing tobacco). You may have water until 2 hrs before your surgery. Other instructions Notify your surgeon if: you become ill with a cough, fever, sore throat, nausea, vomiting or flu- like symptoms you have any open wounds/sores that are red, painful, draining, or are new since you last saw the doctor you need to cancel your procedure Notify us at [facility]: if you need to cancel your procedure if you are going to be late Arrival at the [facility]: Park in the Parking Garage, located directly across from the main entrance to the hospital. Alcohol And Drug Counselor parking is available from 7 AM to 4 PM Friday through Friday. Validate your parking ticket at the Information Desk in the hospital lobby. Proceed to Admissions located across the lobby from the Information Desk. in this encounter Medications at Time of Discharge Medication Sig. Disp. Refills Start Date End Date acetaminophen (TYLENOL) Take 1 tablet by mouth 0 02/13/2017 500 mg tablet every 6 hours as needed for Pain. Max of 4,000 mg of acetaminophen in 24 hours. CALCIUM POIndications: 2 Take 600 mg by mouth tabs twice daily twice daily. Indications: 2 tabs twice daily ciprofloxacin (CIPRO) 250 Take 1 tablet by mouth 3 tablet 0 2016 mg tablet every 12 hours. CRANBERRY FRUIT EXTRACT Take 1 tablet by [...] as needed (moderate to severe pain) phenazopyridine Take 1 tablet by mouth 10 tablet 0 02/13/20172016 (PYRIDIUM) 200 mg tablet three times daily as needed for Pain for up to 3 days. Take after meals. polyethylene glycol 3350 Take 17 g by mouth twice 238 g 0 02/13/2017 (MIRALAX) 17 gram/dose daily. powder Potassium 99 mg tab Take 1 tablet by mouth daily. simvastatin (ZOCOR) 20 mg Take 20 mg by mouth at tabletIndications: half bedtime daily. tab once daily Indications: half tab once daily as of this encounter Progress Notes * Kimberly Sanchez RN - 02/13/2017 1:[address] REPORTER VSS, afebrile. Pt's nausea and pain controlled. See MAR for medication administration. IV removed. Discharge instructions reviewed with pt and pt's family. All of pt's belongings sent with pt/pt's family. All questions and concerns addressed. Pt transported out of PACU at 1339 via wheelchair by transportation services. * Leela Mcclain RN - 01/21/2017 4:[address] REPORTER PAC phone triage call completed with patient who is scheduled for surgery with Dr. Solorzano on 02/13/2017. Allergies, medications and health history reviewed and updated. Patient denies having chest pain, pressure or palpitations. Denies dizziness or lightheadedness, no syncope or neurological symptoms. Denies recent acute illness. States walks independently and has not had falls. 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 No PAC appointment scheduled. Preoperative instructions reviewed with patient: Instructed to discontinue use of cranberry supplement 2 weeks before surgery. May continue calcium, Vitamin D, Potassium and Magnesium supplements. Avoid use of NSAIDS or aspirin 1 week before surgery. May take tylenol as needed for minor discomforts. Also instructed on the day of surgery have nothing to eat or drink after 11 pm, may brush teeth/tongue and rinse mouth the morning of surgery and have water until 2 hrs before surgery. Take bath or shower the evening before and morning of surgery using CHG or other antibacterial soap. Sleep in clean sleepwear and linens. Do not use lotions, oils, deodorant or powders after bathing, do not wear jewelry. Leave valuables at home. Patient verbalized understanding and denied questions. Copy of instructions mailed to patient's home. in this encounter H&P Notes * oTmasa Massey MD - 02/13/2017 10:[address] REPORTER Formatting of this note may be different from the original. [facility] History and Physical Examination 02/13/2017 Patient: Kevin Gilbert Admission Date: 02/13/2017, LOS: 0 days Admission Diagnosis: Bladder cancer (HCC) [C67.9] ASSESSMENT: 86 y.o. 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 Solorzano, who directed plan of care __ HPI: Kevin Gilbert is a 86 y.o. male s/p BCG induction for CIS (history of prostate cancer s/p RRP followed by XRT in 1991). On recent office cystoscopy he had erythema over the posterior wall. He endorses mild hematuria at present. Otherwise doing well and asymptomatic. Past Medical History: Diagnosis Date Bladder cancer (HCC) 09/10/2016 Colon polyps Erectile dysfunction History of radiation therapy Incontinence Kidney stones Prostate cancer (HCC) Urinary tract infection Past Surgical History: Procedure Laterality Date TURP N/A 10/24/2016 BLUE LIGHT CYSTOSCOPY WITH TRANSURETHRAL RESECTION LESION BLADDER performed by Jean Solorzano MD at Main OR/Periop HX VASECTOMY PROSTATE SURGERY Medications: No current facility-administered medications on file prior to encounter. Current Outpatient Prescriptions on File Prior to Encounter Medication Sig Dispense Refill CALCIUM PO Take 600 mg by mouth twice daily. Indications: 2 tabs twice daily CRANBERRY FRUIT EXTRACT (CRANBERRY PO) Take 1 tablet by mouth daily. donepezil (ARICEPT) 10 mg tablet Take 10 mg by mouth at bedtime daily. lisinopril (PRINIVIL, ZESTRIL) 40 mg tablet Take 40 mg by mouth daily. Magnesium 250 mg tab Take 1 tablet by mouth daily. oxybutynin chloride (DITROPAN) 5 mg tablet Take 5 mg by mouth twice daily. oxyCODONE (ROXICODONE, OXY-IR) 5 mg tablet Take 1 tablet by mouth every 4 hours as needed (moderate to severe pain) 10 tablet 0 Potassium 99 mg tab Take 1 tablet by mouth daily. simvastatin (ZOCOR) 20 mg tablet Take 20 mg by mouth at bedtime daily. Indications: half tab once daily Allergies: Review of patient's allergies indicates no known allergies. Social History Social History Marital status: Spouse name: N/A Number of children: N/A Years of education: N/A Occupational History Not on file. Social History Main Topics Smoking status: Never Smoker Smokeless tobacco: Never Used Alcohol use No Drug use: No Sexual activity: Yes Partners: Female Other Topics Concern Not on file Social History Narrative Family History Problem Relation Age of Onset Diabetes Paternal Grandfather Vitals: Vital Signs: Last Filed In 24 Hours Vital Signs: 24 Hour Range BP: 169/89 (02/13 1010) Temp: 36.7 C (98.1 F) (02/13 1009) Pulse: 65 (02/13 1010) Respirations: 21 PER MINUTE (02/13 1010) SpO2: 96 % (02/13 1010) O2 Delivery: None (Room Air) (02/13 1010) Height: 180.3 cm (71") (02/13 1009) BP: (169-215)/(78-89) Temp: [36.7 C (98.1 F)] Pulse: [63-65] Respirations: [18 PER MINUTE-21 PER MINUTE] SpO2: [96 %-98 %] O2 Delivery: None (Room Air) Intake/Output: No intake or output data in the 24 hours ending 02/13/17 1029 Physical Exam: GEN: well nourished, in no distress, alert, oriented HEENT: normocephalic, EOMI CHEST: nonlabored on RA, equal chest rise CV: regular rate, regular rhythm, symmetric radial pulse ABD: soft, non-tender, non-distended EXT: strength/sensation grossly intact bilaterally ROS: A complete 14 point ROS was obtained and was negative except for those listed in HPI Lab/Radiology/Other Diagnostic Tests: No results for input(s): HGB, HCT, WBC, PLTCT, NA, K, CL, CO2, BUN, CR, GLU, CA , MG, PO4, ALBUMIN, TOTPROT, TOTBILI, AST, ALT, ALKPHOS, DORIS, LIPASE, PREALB, INR, PT, PTT in the last 72 hours. Tomasa Massey MD in this encounter Miscellaneous Notes * Operative Report (DICTATED ONLY) - Jean Solorzano MD - 02/13/2017 12:[address] REPORTER Formatting of this note may be different from the original. [facility] [address] [place], [place] [address] PATIENT NAME: KEVIN GILBERT MR#/PT#: [id number] Page 3 OPERATIVE REPORT DATE OF OPERATION: 02/13/2017 SURGEON: Jean Solorzano MD VASCULAR SURGEON(S): Tomasa Massey MD PREOPERATIVE DIAGNOSIS: Bladder cancer. POSTOPERATIVE DIAGNOSIS: Bladder cancer. OPERATIVE PROCEDURE: Transurethral resection of bladder tumor. ANESTHESIA: General. INDICATIONS FOR OPERATIVE PROCEDURE: An 86-year-old male with history of CIS, now status post induction BCG, was found to have an erythematous patch on office cystoscopy. DESCRIPTION AND FINDINGS OF OPERATIVE PROCEDURE: Findings: Erythematous, raised patch on posterior superior bladder wall. The patient was identified and informed consent was obtained. The patient was brought to the operative suite and placed supine on the table. A time-out procedure was performed per protocol. Preoperative antibiotics were administered. Sequential compression devices were operational on bilateral lower extremities. After smooth induction of general anesthesia, the patient was moved to the dorsal lithotomy position with care taken to pad all pressure points. The genitals were prepped and draped in usual sterile fashion. A 26- Northern Irish continuous flow resectoscope was used to cannulate the urethra and enter the bladder. The bladder neck was stenotic with blanched appearance. There were no other abnormalities of the urethra. The prostate was surgically absent. Upon inspection of the bladder, bilateral ureteral orifices were noted in normal orthotopic location and were seen to be effluxing clear yellow urine. The bladder mucosa was diffusely friable consistent with radiation changes. There was an erythematous patch with raised areas across the posterior bladder wall superiorly. There were no papillary tumors present. Resection was then performed of all erythematous, abnormal-appearing mucosa. Hemostasis was then obtained and was noted to be excellent. The chips were then collected and passed off the field as specimen. The bladder was then inspected and there were no other areas of abnormal mucosa and no active bleeding. The scope was then withdrawn with mild oozing noted at the bladder neck, but no other abnormalities. The patient tolerated the procedure well. Viscous 2 percent lidocaine was instilled. The patient was then awoken from anesthesia and transferred to PACU in stable condition. ESTIMATED BLOOD LOSS: minimal SPECIMENS REMOVED: Bladder chips. IMPLANTS: None. DRAINS: None. COMPLICATIONS: None. DISPOSITION: PACU in stable condition. Jean Solorzano MD Dictated by: Tomasa Massey MD / MEDQ /[id number] cc: - Jean Solorzano MD ATTESTATION I performed this procedure with a resident. Staff name: Jean Solorzano MD Date: 02/14/2017 * Procedures (Immed Post or Bedside) - Tomasa Massey MD - 02/13/2017 11:[address] REPORTER Formatting of this note may be different from the original. Brief Operative Note Name: Kevin Gilbert is a 86 y.o. male : 1930 DATE OF OPERATION: 02/13/2017 Date: 02/13/2017 Preoperative Dx: Bladder cancer (HCC) [C67.9] Post-op Diagnosis * Bladder cancer (HCC) [C67.9] Procedure(s): CYSTOSCOPY WITH TRANSURETHRAL RESECTION OF BLADDER TUMOR Anesthesia Type: General Surgeon(s) and Role: * Tomasa Massey MD - Resident - Assisting * Jean Solorzano MD - Primary Findings: Erythematous raised patch on posterior superior bladder wall; no papillary tumors; stenotic bladder neck and friable bladder mucosa throughout Estimated Blood Loss: No blood loss documented. Specimen(s) Removed/Disposition: ID Type Source Tests Collected by Time Destination 1 : Tissue Bladder Chips SURGICAL PATHOLOGY Jean Solorzano MD 02/13/2017 1113 Complications: None Implants: None Drains: None Disposition: PACU - stable Tomasa Massey MD Pager [phone] in this encounter Plan of Treatment Name Priority Associated Diagnoses Date/Time SURGICAL PATHOLOGY 02/13/2017 12:[address] REPORTER Name Priority Associated Diagnoses Order Schedule SURGICAL PATHOLOGY Routine Bladder cancer (HCC) ONCE for 1 Occurrences starting 02/13/2017 as of this encounter Procedures Procedure Name Priority Date/Time Associated Diagnosis Comments CYSTOSCOPY WITH 02/13/2017 Bladder cancer (HCC) TRANSURETHRAL RESECTION 11:[address] REPORTER OF BLADDER TUMOR Special Needs 01/21 PER CHANGE FORM, CASE MOVED FROM 02/12 TO 02/13, REQUEST 1130 START - BP (1047) in this encounter Visit Diagnoses Diagnosis Bladder cancer (HCC) Malignant neoplasm of bladder, part unspecified in this encounter Admitting Diagnoses Diagnosis Bladder cancer (HCC) - unknown Malignant neoplasm of bladder, part unspecified in this encounter Administered Medications Medication Order MAR Action Action Date Dose Rate Site phenazopyridine (PYRIDIUM) tablet 200 mg Given 02/13/2017 200 mg 200 mg, Oral, ONCE, 1 dose, Molly 02/13/17 13:[address] REPORTER at 1300, PACU (only) sodium chloride 0.9 % infusion Given - New 02/13/2017 1,000 mL 20 mL /hr 1,000 mL, 1,000 mL, Intravenous, at 20 Bag 10:[address] REPORTER mL/hr, CONTINUOUS, Starting Molly 02/13/17 at 1000, Until Molly 02/13/17 at 1541, Pre-Op in this encounter
--- OUTSIDE RECORDS SUMMARY | 2017-02-16 07:09 | XMS REPORT | Encounter Summary ---
Author Author [facility] Organization [facility] Address Unknown Phone Unavailable Care Team Providers Care Park Worker Name Role Phone PCP Unavailable Reason for Visit * Auth/Cert Status Reason Specialty Diagnoses / Referred By Referred To Procedures Contact Contact Diagnoses Bladder cancer (HCC) unknown P rocedures [place] CYSTOURETHROSCOP Y W/DEST &/RMVL MED BLADDER VASYL TURBT Encounter Details Date Type Department Care Team Description 02/13/2017 Surgery Main Operating Room Jean Solorzano, CYSTOSCOPY WITH [address] [place] [address] [address] OF BLADDER TUMOR [phone] [address] [place], [place] [id number] Social History Tobacco Use Types Packs/Day Years Used Date Never Smoker Smokeless Tobacco: Never Used Alcohol Use Drinks/Week oz/Week Comments No Sex Assigned at Date Recorded Not on file as of this encounter Last Filed Vital Signs Vital Sign Reading Time Taken Blood Pressure 168/85 02/13/2017 1:00 PM CHEMICAL DEPENDENCY NURSE Pulse 67 02/13/2017 1:15 PM CHEMICAL DEPENDENCY NURSE Temperature 36.3 C (97.3 F) 02/13/2017 12:05 PM CHEMICAL DEPENDENCY NURSE Respiratory Rate - - Oxygen Saturation 97% 02/13/2017 1:15 PM CHEMICAL DEPENDENCY NURSE Inhaled Oxygen - - Concentration Weight 94.6 kg (208 lb 8.9 oz) 02/13/2017 10:09 AM CHEMICAL DEPENDENCY NURSE Height 180.3 cm (5' 11") 02/13/2017 10:09 AM CHEMICAL DEPENDENCY NURSE Body Mass Index 29.09 02/13/2017 10:09 AM CHEMICAL DEPENDENCY NURSE in this encounter Discharge Instructions * Discharge Instr - Other Info - Kimberly Sanchez RN - 02/13/2017 1:06 PM CHEMICAL DEPENDENCY NURSE You received a dose of Pyridium at 1303 today on 02-13-2017, you may take next dose at 9:03 pm if needed. * Pre-Anesthesia Medication Instructions - Leela Mcclain RN - 01/21/2017 4:24 PM CHEMICAL DEPENDENCY NURSE Formatting of this note may be different [...] with any medicine updates or questions. E-mail: [email or web address] Before going home from the hospital, please ask your doctor when you should re- start your medicines that were stopped before surgery. * Pre-Anesthesia Patient Instructions - Leela Mcclain RN - 01/21/2017 4:23 PM CHEMICAL DEPENDENCY NURSE GENERAL INFORMATION Before you come to the [...] and any other valuables at home. The [facility] is not responsible for the loss or breakage of personal items. Remove all jewelry (including piercings) before coming to the hospital. The morning of your procedure: brush your teeth and tongue do not smoke do not shave the area where you will have surgery What to bring to the hospital ID/ Insurance Card Service Dog Trainer card Official documents for legal guardianship Copy of your Living Will, Advanced Directives, and/or Durable Power of Director Camp Small bag with a few personal belongings [...] to cancel your procedure Notify us at [facility]: if you need to cancel your procedure if you are going to be late Arrival at the [facility]: Park in the [address] Parking Garage, located directly across from the main entrance to the hospital. Substance Abuse Clinician parking is available from 7 AM to [...] Kimberly Sanchez RN - 02/13/2017 1:39 PM CHEMICAL DEPENDENCY NURSE VSS, afebrile. Pt's nausea and pain controlled. See MAR for medication administration. IV removed. Discharge instructions reviewed with pt and pt's family. All of pt's belongings sent with pt/pt's family. All questions and concerns addressed. Pt transported out of PACU at 1339 via wheelchair by transportation services. * Leela Mcclain RN - 01/21/2017 4:27 PM CHEMICAL DEPENDENCY NURSE PAC phone triage call completed with patient [...] home. in this encounter H&P Notes * Tomasa Massey MD - 02/13/2017 10:29 AM CHEMICAL DEPENDENCY NURSE Formatting of this note may be different [...] Jean Solorzano MD - 02/13/2017 12:01 PM CHEMICAL DEPENDENCY NURSE Formatting of this note may be different from the original. [facility] [address] [place], [place] [address] PATIENT NAME: KEVIN GILBERT MR#/PT#: [id number] Page 3 OPERATIVE REPORT DATE OF OPERATION: 02/13/2017 SURGEON: Jean Solorzano MD CNC SERVICE TECHNICIAN(S): Tomasa Massey MD PREOPERATIVE DIAGNOSIS: Bladder cancer. [...] draped in usual sterile fashion. A 26- Irish continuous flow resectoscope was used to [...] Dictated by: Tomasa Massey MD / MEDQ /[id number] cc: - Jean Solorzano MD ATTESTATION I performed this procedure with a resident. Staff name: Jean Solorzano MD Date: 02/14/2017 * Procedures (Immed Post or Bedside) - Tomasa Massey MD - 02/13/2017 11:51 AM CHEMICAL DEPENDENCY NURSE Formatting of this note may be different [...] PACU - stable Tomasa Massey MD Pager [phone] in this encounter Plan of Treatment Name Priority Associated Diagnoses Date/Time SURGICAL PATHOLOGY 02/13/2017 12:19 PM CHEMICAL DEPENDENCY NURSE Name Priority Associated Diagnoses Order Schedule SURGICAL PATHOLOGY Routine Bladder cancer (HCC) ONCE for 1 Occurrences starting 02/13/2017 as of this encounter Procedures Procedure Name Priority Date/Time Associated Diagnosis Comments CYSTOSCOPY WITH 02/13/2017 Bladder cancer (HCC) TRANSURETHRAL RESECTION 11:30 AM CHEMICAL DEPENDENCY NURSE OF BLADDER TUMOR Special Needs 01/21 PER [...] MAR Action Action Date Dose Rate Site lidocaine (XYLOCAINE) 2 % jelly Given 02/13/2017 20 mL INTRA-PROCEDURE MED, Starting Molly 11:44 CHEMICAL DEPENDENCY NURSE 02/13/17 at 1144, Until Molly 02/13/17 at 1541, Intra-op phenazopyridine (PYRIDIUM) tablet 200 mg Given 02/13/2017 200 mg 200 mg, Oral, ONCE, 1 dose, Molly 02/13/17 13:03 CHEMICAL DEPENDENCY NURSE at 1300, PACU (only) sodium chloride 0.9 % infusion Given - New 02/13/2017 1,000 mL 20 mL /hr 1,000 mL, 1,000 mL, Intravenous, at 20 Bag 10:08 CHEMICAL DEPENDENCY NURSE mL/hr, CONTINUOUS, Starting Molly 02/13/17 at 1000, Until Molly 02/13/17 at 1541, Pre-Op water, sterile irrigation solution Given 02/13/2017 9,000 mL INTRA-PROCEDURE MED, Starting Molly 11:35 CHEMICAL DEPENDENCY NURSE 02/13/17 at 1135, Until Molly 02/13/17 at 1541, Intra-op in this encounter
--- OUTSIDE RECORDS SUMMARY | 2017-02-16 07:09 | XMS REPORT | Encounter Summary ---
Author Author [facility] Organization [facility] Address Unknown Phone Unavailable Care Team Providers Care Roustabout Crew Pusher Name Role Phone PCP Unavailable Reason for Visit * Auth/Cert Status Reason Specialty Diagnoses / Referred By Referred To Procedures Contact Contact Diagnoses Bladder cancer (HCC) unknown P rocedures RI CYSTOURETHROSCOP Y W/DEST &/RMVL MED BLADDER VASYL TURBT Encounter Details Date Type Department Care Team Description 02/13/2017 Anesthesia Main Operating Room Catalina Kirkpatrick CRNA [address] [facility] [address] [place] [address] [place] [address] [place] [address] [phone] Social History Tobacco Use Types Packs/Day Years Used Date Never Smoker Smokeless Tobacco: Never Used Alcohol Use Drinks/Week oz/Week Comments No Sex Assigned at Date Recorded Not on file as of this encounter OR Notes * Anesthesia Postprocedure Evaluation - Nish Poole DO - 02/13/2017 12:59 PM CUSTOMER CARE CONSULTANT Post-Anesthesia Evaluation Name: Kevin Gilbert : 1930 Age: 86 y.o. Sex: male Procedure Date: 02/13/2017 Procedure: Procedure(s) with comments: CYSTOSCOPY WITH TRANSURETHRAL RESECTION OF BLADDER TUMOR - CASE LENGTH 1 HOUR, REQUEST 1130 START Surgeon: Surgeon(s): MD Tomasa Galloway MD Post-Anesthesia Vitals BP: 172/73 (02/13 1245) Temp: 36.3 C (97.3 F) (02/13 1205) Pulse: 68 (02/13 1245) Respirations: 16 PER MINUTE (02/13 1245) SpO2: 96 % (02/13 1245) O2 Delivery: None (Room Air) (02/13 1245) SpO2 Pulse: 68 (02/13 1245) Height: 180.3 cm (71") (02/13 1009) Post Anesthesia Evaluation Note Evaluation location: Pre/Post Patient participation: recovered; patient participated in evaluation Level of consciousness: alert Pain score: 0 Pain management: adequate Hydration: normovolemia Temperature: 36.0C - 38.4C Airway patency: adequate Perioperative Events Perioperative events: no Post-op nausea and vomiting: no PONV Postoperative Status Cardiovascular status: hemodynamically stable Respiratory status: spontaneous ventilation Follow-up needed: none Perioperative Events Perioperative Event: No Emergency Case Activation: No Associated attestation - Chang Arrington MD - 02/13/2017 1:11 PM CUSTOMER CARE CONSULTANT Formatting of this note may be different from the original. ATTESTATION: Post-Anesthesia Evaluation Attestation: I reviewed and agree the indicated post- anesthesia care was provided. Chang Arrington MD Pager [phone] * Anesthesia Preprocedure Evaluation - Catalina Kirkpatrick CRNA - 02/13/2017 10: 12 AM CUSTOMER CARE CONSULTANT Formatting of this note may be different from the original. Anesthesia Pre-Procedure Evaluation Name: Kevin Gilbert : 1930 Age: 86 y.o. Sex: male Procedure Date: 02/13/2017 Procedure: Procedure(s) with comments: CYSTOSCOPY WITH TRANSURETHRAL RESECTION OF BLADDER TUMOR - CASE LENGTH 1 HOUR, REQUEST 1130 START Physical Assessment Vital Signs (last filed in past 24 hours): BP: 215/78 (02/13 1009) Temp: 36.7 C (98.1 F) (02/13 1009) Pulse: 63 (02/13 1009) Respirations: 18 PER MINUTE (02/13 1009) SpO2: 98 % (02/13 1009) O2 Delivery: None (Room Air) (02/13 1009) Height: 180.3 cm (71") (02/13 1009) Weight: 94.6 kg (208 lb 8.9 oz) (02/13 1009) Repeat blood pressure on right arm 169/89 Patient History No Known Allergies Current Medications Medication Directions CALCIUM PO Take 600 mg by mouth [...] bedtime daily. Indications: half tab once daily Review of Systems/Medical History Patient summary reviewed Nursing notes reviewed Pertinent labs reviewed PONV Screening: Non-smoker and Postoperative opioids No history of anesthetic complications ("Wakes up swinging" from anesthesia per family) No family history of anesthetic complications Pulmonary Sleep apnea (Pt is unsure of setting. Has never used home 02) Interventions: CPAP; compliant Cardiovascular Exercise tolerance: >4 METS Beta Tristin therapy: No Hypertension (SBP 160s-200s this AM. Pt reports BP runs 160s/60s at home. Patient did not take BP meds this AM ), poorly controlled Hyperlipidemia Neuro/Psych - negative Musculoskeletal - negative Endocrine/Other Malignancy (prostate cancer 1991. S/p surgery, chemo & radiation. recent bladder cancer diagnosis ) Physical Exam Airway Findings Mallampati: II TM distance: >3 FB Neck ROM: full Mouth opening: good Airway patency: adequate Dental Findings: Bridges Cardiovascular Findings: Negative Rhythm: regular Pulmonary Findings: Negative Breath sounds clear to auscultation. Neurological Findings: Negative Diagnostic Tests Hematology: No results found for: HGB, HCT, PLTCT, WBC, NEUT, ANC, LYMPH, ALC, ABSLYMPHCT, JESSICA, AMC, EOSA, ABC, BASOPHILS, MCV, MCH, MCHC, MPV, RDW General Chemistry: No results found for: NA, K, CL, CO2, GAP, BUN, CR, GLU, CA, KETONES, ALBUMIN, LACTIC, OBSCA, MG, TOTBILI, TOTBILCB, PO4 Coagulation: No results found for: PT, PTT, INR Anesthesia Plan ASA score: 3 Plan: general Induction method: intravenous NPO status: acceptable Informed Consent Anesthetic plan and risks discussed with patient. Use of blood products discussed with patient; consented to blood products. Plan discussed with: POULTRY VACCINATOR and anesthesiologist. in this encounter Plan of Treatment Not on fileas of this encounter Visit Diagnoses Not on filein this encounter Administered Medications Medication Order MAR Action Action Date Dose Rate Site ceFAZolin (ANCEF) injection Given 02/13/2017 2 g INTRA-PROCEDURE MED, Starting Molly 10:58 CUSTOMER CARE CONSULTANT 02/13/17 at 1058, Until Molly 02/13/17 at 1206, Anesthesia Intra-op dexamethasone (DECADRON) injection Given 02/13/2017 4 mg Intravenous, INTRA-PROCEDURE MED, 11:07 CUSTOMER CARE CONSULTANT Starting Molly 02/13/17 at 1107, Until Molly 02/13/17 at 1206, Nausea/Vomiting Injectable, Anesthesia Intra-op fentaNYL citrate PF (SUBLIMAZE) Given 02/13/2017 50 mcg injection 10:40 CUSTOMER CARE CONSULTANT INTRA-PROCEDURE MED, Starting Molly 17 at 1040, Until Molly 02/13/17 at 1206, Pain Injectable, Anesthesia Intra-op Given 02/13/2017 25 mcg 11:14 CUSTOMER CARE CONSULTANT lidocaine (PF) injection Given 02/13/2017 100 mg INTRA-PROCEDURE MED, Starting Molly 10:49 CUSTOMER CARE CONSULTANT 17 at 1049, Until Molly 02/13/17 at 1206, Anesthesia Intra-op ondansetron (ZOFRAN) injection Given 02/13/2017 4 mg Intravenous, INTRA-PROCEDURE MED, 11:35 CUSTOMER CARE CONSULTANT Starting Molly 02/13/17 at 1135, Until Molly 02/13/17 at 1206, Nausea/Vomiting Injectable, Anesthesia Intra-op phenylephrine in NS Injection Given 02/13/2017 50 mcg Intravenous, INTRA-PROCEDURE MED, 11:42 CUSTOMER CARE CONSULTANT Starting Molly 02/13/17 at 1142, Until Molly 02/13/17 at 1206, Symptomatic Hypotension, Anesthesia Intra-op Given 02/13/2017 50 mcg 11:44 CUSTOMER CARE CONSULTANT propofol (DIPRIVAN) injection Given 02/13/2017 100 mg INTRA-PROCEDURE MED, Starting Molly 10:49 CUSTOMER CARE CONSULTANT 02/13/17 at 1104, Until Molly 02/13/17 at 1206, Anesthesia Intra-op Given 02/13/2017 20 mg 11:04 CUSTOMER CARE CONSULTANT rocuronium (ZEMURON) injection Given 02/13/2017 40 mg Intravenous, INTRA-PROCEDURE MED, 10:49 CUSTOMER CARE CONSULTANT Starting Molly 02/13/17 at 1104, Until Molly 02/13/17 at 1206, Anesthesia Intra-op Given 02/13/2017 20 mg 11:04 CUSTOMER CARE CONSULTANT Given 02/13/2017 10 mg 11:25 CUSTOMER CARE CONSULTANT sugammadex (BRIDION) injection Given 02/13/2017 189 mg Intravenous, INTRA-PROCEDURE MED, 11:45 CUSTOMER CARE CONSULTANT Starting Molly 02/13/17 at 1145, Until Molly 02/13/17 at 1206, Anesthesia Intra-op in this encounter
--- OUTSIDE RECORDS SUMMARY | 2017-02-16 07:09 | XMS REPORT | Encounter Summary ---
Author Author [facility] Organization [facility] Address Unknown Phone Unavailable Care Team Providers Care Search Engine Optimizer Name Role Phone PCP Unavailable Encounter Details Date Type Department Care Team Description 01/03/2017 Pharmacy Visit [facility] [address] [place] [address] Social History Tobacco Use Types Packs/Day Years Used Date Never Smoker Smokeless Tobacco: Never Used Alcohol Use Drinks/Week oz/Week Comments No Sex Assigned at Date Recorded Not on file as of this encounter Plan of Treatment Not on fileas of this encounter Visit Diagnoses Not on filein this encounter
--- OUTSIDE RECORDS SUMMARY | 2017-02-16 07:09 | XMS REPORT | Encounter Summary ---
Author Author [facility] Organization [facility] Address Unknown Phone Unavailable Care Team Providers Care Condominium Manager Name Role Phone PCP Unavailable Encounter Details Date Type Department Care Team Description 01/17/2017 Prep for Case [facility] Jean Solorzano[facility] Exam [address] [facility] [address] [place] [address] [address] [place] [address] [phone] Social History Tobacco Use Types Packs/Day Years Used Date Never Smoker Smokeless Tobacco: Never Used Alcohol Use Drinks/Week oz/Week Comments No Sex Assigned at Date Recorded Not on file as of this encounter Plan of Treatment Not on fileas of this encounter Visit Diagnoses Not on filein this encounter
--- OUTSIDE RECORDS SUMMARY | 2017-02-16 07:10 | XMS REPORT | Continuity of Care Document ---
Author Author [facility] Organization [facility] Address Unknown Phone Unavailable Allergies Active Description Code Type Severity Reaction Onset Reported/Identified Relationship to Patient Clinical Status Yes No Known Drug Allergies [id number] Drug Allergy Unknown N/A 07/23/2010 Medications There is no data. 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.9 RENAL URETERAL DIS NOS 09/06/2016 TIERNEY MILES MD Ot E78.00 PURE HYPERCHOLESTEROLEMIA, UNSPECIFIED 09/06/2016 TIERNEY MILES MD Ot I10 ESSENTIAL (PRIMARY) HYPERTENSION 09/06/2016 TIERNEY MILES MD Ot N13.9 OBSTRUCTIVE AND REFLUX UROPATHY, UNSPECI 09/06/2016 TIERNEY MILES MD Ot N39.0 URINARY TRACT INFECTION, SITE NOT SPECIF 09/06/2016 TIERNEY MILES MD Ot N48.89 OTHER SPECIFIED DISORDERS OF PENIS 09/06/2016 TIERNEY MILES MD Ot Z79.82 HALF-WAY (CURRENT) USE OF ASPIRIN 09/06/2016 TIERNEY MILES MD, Ot Z87.442 PERSONAL HISTORY OF URINARY CALCULI 09/06/2016 TIERNEY MILES MD Ot Z90.79 ACQUIRED ABSENCE OF OTHER GENITAL ORGAN( 09/06/2016 TIERNEY MILES MD Ot Z96.0 PRESENCE OF UROGENITAL IMPLANTS 09/09/2016 TIERNEY MILES MD Ot E78.00 PURE HYPERCHOLESTEROLEMIA, UNSPECIFIED 09/09/2016 TIERNEY MILES MD Ot I10 ESSENTIAL (PRIMARY) HYPERTENSION 09/09/2016 TIERNEY MILES MD Ot N13.9 OBSTRUCTIVE AND REFLUX UROPATHY, UNSPECI 09/09/2016 TIERNEY MILES MD Ot N39.0 URINARY TRACT INFECTION, SITE NOT SPECIF 09/09/2016 TIERNEY MILES MD Ot N48.89 OTHER SPECIFIED DISORDERS OF PENIS 09/09/2016 TIERNEY MILES MD Ot Z79.82 SERIALS LIBRARIAN (CURRENT) USE OF ASPIRIN 09/09/2016 TIERNEY MILES MD Ot Z87.442 PERSONAL HISTORY OF URINARY CALCULI 09/09/2016 TIERNEY MILES MD Ot Z90.79 ACQUIRED ABSENCE OF OTHER GENITAL ORGAN( 09/09/2016 TIERNEY MILES MD Ot Z96.0 PRESENCE OF UROGENITAL IMPLANTS Procedures There is no data. Results Test Result Range Complete urinalysis with reflex to culture - 09/05/16 04:00 Urine color determination YELLOW NRG Urine clarity determination SLIGHTLY CLOUDY NRG Urine pH measurement by test strip 7 5-9 Specific gravity of urine by test strip 1.010 1.016- 1.022 Urine protein assay by test strip, semi-quantitative [...] erythrocyte count by microscopy (number/high power field) [facility] Automated urine sediment leukocyte count by [...] Status Pt. Type Provider Facility Loc./Unit Complaint [id number] 09/06/2016 20:35:00 09/06/2016 21:07:00 DIS Emergency TIERNEY MILES MD [facility] ER CATHETER PROBLEMS [id number] 09/05/2016 03:30:00 09/05/2016 06:10:00 DIS Emergency TIERNEY MILES MD [facility] ER CAN'T URINATE [id number] 12/18/2012 14:25:00 12/18/2012 23:59:59 CLS Outpatient KIM MORIN APRN [facility] RAD ABNORMAL CT [id number] 12/12/2012 12:15:00 12/12/2012 17:15:00 DIS Emergency
[2017-02-16] MEDS ORDERED: LIDOCAINE UROJET 2% GEL 10 ML PKG ONE (07:30)
[2017-02-16] MEDS ORDERED: LIDOCAINE UROJET 2% GEL 10 ML PKG TOP ONE (07:45)
--- NOTE | 2017-02-16 07:48 | ED Abdominal Pain ---
General Stated Complaint: CAN'T URINATE Source of Information: Patient, Family Exam Limitations: No Limitations History of Present Illness Time Seen By Provider: 07:44 Initial Comments This 86-year-old white male presents with urinary retention. The patient has been receiving treatments for cancer the bladder. The treatments involve placement of catheter and instillation of medication and antibiotic. It is not clear but patient is receiving medication which utilizes his autoimmune system. It's unclear if this is in addition to the medication is being placed in his bladder. These procedures bend [facility]. The patient is under care of the urology Department at . Patient has been self catheterizing at home. He has been unable to urinate after his last self-catheterization at 3 a.m. this morning. The patient is to receive an indwelling Lee catheter with a leg bag per the request of urology at according to the patient's . Patient states that he has had some bleeding that is noted in his urine. He has had no associated fever, chill, flank pain, nausea or vomiting, diarrhea, or constipation. Allergies and Home Medications Allergies Coded Allergies: No Known Drug Allergies (Unverified , 07/23/10) Home Medications Aspirin 81 Mg Tab.chew, 81 MG PO DAILY, (Reported) Calcium Carbonate 600 Mg Tablet, 2,400 MG PO DAILY, (Reported) Cephalexin 500 Mg Tablet, 500 MG PO BID for 10 Days, #20 Ref 0 Prescribed by: TIERNEY MILES on 09/05/16 0537 Donepezil HCl 10 Mg Tablet, 10 MG PO DAILY, #90 (Reported) Lisinopril 40 Mg Tablet, 40 MG PO DAILY, #90 (Reported) Magnesium Oxide 400 Mg Capsule, 400 MG PO DAILY, (Reported) Multivit-Min/FA/Lycopene/Lut 1 Each Tablet, 1 EACH PO DAILY, (Reported) [place] 3 Polyunsat Fatty Acids 1,000 Mg Cap, 1,000 MG PO BID, (Reported) Oxybutynin Chloride 5 Mg Tablet, 5 MG PO BID, #60 (Reported) Potassium Gluconate 99 Mg Tablet.er, 99 MG PO DAILY, (Reported) Simvastatin 20 Mg Tablet, 10 MG PO DAILY, #45 (Reported) Review of Systems Constitutional: No chills, No fever, No weakness EENTM: No Blurred Vision, No Ear Pain Respiratory: Denies Cough Cardiovascular: Denies Chest Pain Gastrointestinal: Denies Diarrhea, Denies Vomiting Genitourinary: See HPI, Denies Burning, Other Musculoskeletal: No back pain (urinary retention) Skin: No change in color, No rash Psychiatric/Neurological: No Symptoms Reported Hematologic/Lymphatic: No Symptoms Reported Past Aqadtef-Eqxmdn-Rrdveu Hx Patient Social History 2nd Hand Smoke Exposure: No Recent Foreign Travel: No Contact w/Someone Who Travel: No Recent Hopitalizations: No Immunizations Up To Date Date of Influenza Vaccine: Dec 10, 2012 Seasonal Allergies Seasonal Allergies: Yes Surgeries History of Surgeries: Yes Surgeries: Prostatectomy Respiratory History of Respiratory Disorde: No Cardiovascular History of Cardiac Disorders: Yes Cardiac Disorders: High Cholesterol, Hypertension Neurological History of Neurological Disord: No Reproductive System Hx Reproductive Disorders: No Sexually Transmitted Disease: No Genitourinary History of Genitourinary Disor: Yes Genitourinary Disorders: Prostate Problems, Kidney Stones Gastrointestinal History of Gastrointestinal Di: No Musculoskeletal History of Musculoskeletal Dis: No Endocrine History of Endocrine Disorders: No HEENT Hearing Impairment: Hard of Hearing Cancer History of Cancer: Yes Cancer: Prostate Psychosocial History of Psychiatric Problem: No Integumentary History of Skin or Integumenta: No Blood Transfusions History of Blood Disorders: No Reviewed Nursing Assessment Reviewed/Agree w Nursing PMH: Yes Physical Exam Vital Signs Capillary Refill : General Appearance: WD/WN, no apparent distress HEENT: normal ENT inspection Neck: normal inspection Respiratory: lungs clear Cardiovascular: regular rate, rhythm Gastrointestinal: normal bowel sounds, non tender, soft Genital/Rectal: normal genital exam Extremities: normal range of motion, normal inspection Back: normal inspection Neurologic/Psychiatric: no motor/sensory deficits, alert, normal mood/affect Skin: normal color, warm/dry Progress/Results/Core Measures Results/Orders My Orders Orders - JORDI ANTHONY MD Lidocaine 2% (Urojet) (Xylocaine Urojet) (02/16/17 07:30) Lidocaine 2% (Urojet) (Xylocaine Urojet) (02/16/17 07:45) Lee Cath Insertion (02/16/17 07:32) Medications Given in ED Current Medications Medications Dose Ordered Sig/Dwain Route Start Time Stop Time Status Last Admin Dose Admin Lidocaine HCl 10 ml ONCE ONCE TOP 02/16/17 07:45 02/16/17 07:46 DC 02/16/17 07:40 10 ML Progress Note : Time: 08:06 Progress Note The patient had a Lee catheter passed without difficulty. Patient had a 350 mL residual. A clean catch urine was sent to the lab. We discussed antibiotic coverage with the patient and placed him on Bactrim. Patient tolerated procedure well. A leg bag was applied as requested by SURESH. Departure Impression Impression: Primary Impression: Urinary retention Disposition: HOME, SELF-CARE Condition: Improved Departure-Patient Inst. Decision time for Depature: 08:08 Referrals: ARVIN QUARLES MD (PCP/Family) Primary Care Physician Patient Instructions: Urinary Retention (DC) Add. Discharge Instructions: Bactrim as prescribed. Close follow-up with your doctors at and [facility] on Friday. Return if any problems or questions JORDI ANTHONY MD Feb 16, 2017 07:48
[2017-02-16 08:25] VITALS: BP 164/84
== END 2017-02-16 08:26 | disposition home or self-care (01) ==
LOC: EDUNIT# 07:02 → ER 07:03
DX: R33.9 Retention of urine, unspecified (principal); E78.00 Pure hypercholesterolemia, unspecified; I10 Essential (primary) hypertension; Z87.442 Personal history of urinary calculi; Z79.82 Long term (current) use of aspirin; Z90.79 Acquired absence of other genital organ(s)
CPT/HCPCS: 51702

== ENCOUNTER 2017-07-17 09:08 | Outpatient (RCR) | payer MEDICARE, BC ==
[2017-10-05] MEDS ORDERED: TRAM-42 PO (22:41)
[2017-10-05] MEDS ORDERED: NITR-65 PO (22:41)
[2017-10-05] MEDS ORDERED: NAPR-915 PO (22:41)
== END 2017-10-15 | disposition home or self-care (01) ==
LOC: CARD 09:08
PROVIDERS: ATTEND Internal Medicine
DX: R00.2 Palpitations (principal)
CPT/HCPCS: 93225; 93226

== ENCOUNTER → 2017-08-19 | Outpatient (CLI) | payer MEDICARE, BC ==
[~2017-08-19] MED LIST changes: +CATHETER FLUSH 10 ML SYR IV PRN; +REGADENOSON 0.4 MG/5 ML SYR (LEXISCAN) IV ONE
[2017-08-19 09:10] VITALS: BP 152/91
[2017-08-19 09:14] VITALS: BP 146/70
--- NOTE | 2017-08-21 12:41 | STRESS TEST ---
DATE OF SERVICE: 08/19/2017 RESTING AND POST REGADENOSON TECHNETIUM-99M TETROFOSMIN SPECT CT IMAGING ORDERING PHYSICIAN: Dr. Loera. PRIMARY PHYSICIAN: Dr. Larsen. CLINICAL DIAGNOSES: Hypertension, sinus node dysfunction, frequent premature ventricular contractions. Baseline images were carried out after injection of 10.34 mCi of technetium-99m Tetrofosmin. This was followed by 0.4 mg regadenoson and 30.8 mCi of technetium-99m Tetrofosmin for stress imaging. The electrocardiogram showed sinus rhythm with sinus arrhythmia at baseline. Isolated premature ventricular contractions were seen. The electrocardiogram did not change significantly with the regadenoson infusion. The patient tolerated the procedure well. Review of images at rest and following stress does not indicate any significant perfusion defects consistent with significant myocardial ischemia or infarction. Gated images show normal global left ventricular systolic function with normal regional wall motion. Left ventricular end diastolic volume is 115 mL. TID is absent (0.98). Left ventricular ejection fraction is calculated to be 56%. CONCLUSIONS: 1. No evidence of any significant myocardial ischemia or infarction on this study. 2. Normal regional wall motion. 3. Normal global left ventricular systolic function with a calculated ejection fraction of 56%. 4. Mild cardiomegaly. Job ID: [id number] DocumentID: [id number] Dictated Date: 08/21/2017 09:41:45 Office System Analyst Date: 08/21/2017 12:40:34 Dictated By: JESSE LOERA MD, MA, FACP, FACC,
== END ==
LOC: CARD 07:22
PROVIDERS: ATTEND Internal Medicine Cardiovascular Disease
DX: I49.5 Sick sinus syndrome (principal); I49.3 Ventricular premature depolarization; I10 Essential (primary) hypertension; E78.4 Other hyperlipidemia
CPT/HCPCS: 78452; 93017

== ENCOUNTER → 2017-09-02 | Outpatient (CLI) | payer MEDICARE, BC ==
[~2017-09-02] MED LIST changes: -CATHETER FLUSH 10 ML SYR IV PRN; +NAPR-915 PO; +NITR-65 PO; -REGADENOSON 0.4 MG/5 ML SYR (LEXISCAN) IV ONE; +TRAM-42 PO
== END ==
LOC: CARD 13:31
PROVIDERS: ATTEND Internal Medicine Cardiovascular Disease
DX: I49.5 Sick sinus syndrome (principal); I10 Essential (primary) hypertension; E78.4 Other hyperlipidemia; I49.3 Ventricular premature depolarization; I34.0 Nonrheumatic mitral (valve) insufficiency
CPT/HCPCS: 93306

== ENCOUNTER 2017-10-05 20:11 | Emergency (ER) | payer MEDICARE, BC ==
[~2017-10-05] VITALS: Ht 180.3 cm; Wt 90.7 kg
[~2017-10-05 20:11] MED LIST changes: -NAPR-915 PO; -NITR-65 PO; -TRAM-42 PO
[2017-10-05] MEDS ORDERED: LACTATED RINGERS 1,000 ML IV ONE (20:32)
[2017-10-05] MEDS ORDERED: KETOROLAC 30 MG/ML VIAL IVP STA (20:32)
[2017-10-05 20:54] LABS: BASOPHILS % (AUTO) 0 % (0-10); EOSINOPHILS # (AUTO) 0.2 10^3/uL (0.0-0.3); EOSINOPHILS % (AUTO) 3 % (0-10); HEMATOCRIT 42 % (40-54); HEMOGLOBIN 14.2 G/DL (13.3-17.7); LYMPHOCYTES # (AUTO) 1.6 X 10^3 (1.0-4.0); LYMPHOCYTES % (AUTO) 23 % (12-44); MEAN CORPUSCULAR HEMOGLOBIN 31 PG (25-34); MEAN CORPUSCULAR HGB CONC 34 G/DL (32-36); MEAN CORPUSCULAR VOLUME 92 FL (80-99); MEAN PLATELET VOLUME 10.2 FL (7.4-10.4); MONOCYTES # (AUTO) 0.8 X 10^3 (0.0-1.0); MONOCYTES % (AUTO) 11 % (0-12); NEUTROPHILS # (AUTO) 4.4 X 10^3 (1.8-7.8); NEUTROPHILS % (AUTO) 63 % (42-75); PLATELET COUNT 359 10^3/uL (130-400); RED BLOOD COUNT 4.55 10^6/uL (4.35-5.85); RED CELL DISTRIBUTION WIDTH 14.9 % (10.0-14.5); WHITE BLOOD COUNT 6.9 10^3/uL (4.3-11.0)
--- NOTE | 2017-10-05 21:10 | ED Back Pain ---
General Chief Complaint: Back Problems Stated Complaint: R SIDE LOWER BACK PAIN Source of Information: Patient Exam Limitations: No Limitations History of Present Illness Date Seen by Provider: Oct 05, 2017 Time Seen by Provider: 20:25 Initial Comments PT ARRIVES VIA POV FROM HOME C/O RIGHT FLANK PAIN SINCE 1300 TODAY, AND HAS PROGRESSIVELY GOTTEN WORSE PT HAS HISTORY OF KIDNEY STONES AND THIS FEELS THE SAME. HAS PASSED ALL PREVIOUS STONES ON HIS OWN EXCEPT ONE--HAD TO HAVE STONE BASKET REMOVAL PT HAS ONGOING ISSUES WITH INCONTINENCE, BUT NO CHANGES IN URINATION, NO PAIN ON URINATION AND NO CHANGES IN COLOR OF URINE\\ NO ABDOMINAL PAIN NO NAUSEA/VOMITING NO FEVER PT IS CURRENTLY BEING TREATED FOR BLADDER CANCER--GETS MONTHLY "IMMUNOTHERAPY" - ? BCG ? TREATMENTS--BEING TREATED BY DR. 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 PT LATER STATES THAT HE FELL A WEEK AGO, AND INJURED RIGHT FLANK AREA. NO SIGNIFICANT PAIN UNTIL TODAY Allergies and Home Medications Allergies Coded Allergies: No Known Drug Allergies (Unverified , 07/23/10) Home Medications Aspirin 81 Mg Tab.chew, 81 MG PO DAILY, (Reported) Calcium Carbonate 600 Mg Tablet, 2,400 MG PO DAILY, (Reported) Cephalexin 500 Mg Tablet, 500 MG PO BID Prescribed by: TIERNEY MILES on 09/05/16 0537 Donepezil HCl 10 Mg Tablet, 10 MG PO DAILY, (Reported) Lisinopril 40 Mg Tablet, 40 MG PO DAILY, (Reported) Magnesium Oxide 400 Mg Capsule, 400 MG PO DAILY, (Reported) Multivit-Min/FA/Lycopene/Lut 1 Each Tablet, 1 EACH PO DAILY, (Reported) Naproxen 500 Mg Tablet, 500 MG PO BID Prescribed by: CARLOS MORRIS on 10/05/172240 Nitrofurantoin Monohyd/M-Cryst 100 Mg Capsule, 100 MG PO BID Prescribed by: CARLOS MORRIS on 10/05/172240 [place] 3 Polyunsat Fatty Acids 1,000 Mg Cap, 1,000 MG PO BID, (Reported) Oxybutynin Chloride 5 Mg Tablet, 5 MG PO BID, (Reported) Potassium Gluconate 99 Mg Tablet.er, 99 MG PO DAILY, (Reported) Simvastatin 20 Mg Tablet, 10 MG PO DAILY, (Reported) Tramadol HCl 50 Mg Tablet, 50 MG PO Q4H Prescribed by: CARLOS MORRIS on 10/05/17 2241 Patient Home Medication List Home Medication List Reviewed: Yes Constitutional: no symptoms reported Respiratory: no symptoms reported Cardiovascular: no symptoms reported Gastrointestinal: no symptoms reported Genitourinary: see HPI, other (RIGHT FLANK PAIN ) Musculoskeletal: see HPI, back pain Skin: No rash Psychiatric/Neurological: No Symptoms Reported Past Vxmnapm-Cmuxmx-Dixamr Hx Patient Social History Alcohol Use: Denies Use Recreational Drug Use: No Smoking Status: Never a Smoker 2nd Hand Smoke Exposure: No Recent Hopitalizations: Yes (BLADDER SCRAPING) Immunizations Up To Date Date of Influenza Vaccine: Dec 10, 2012 Seasonal Allergies Seasonal Allergies: Yes Past Medical History Surgeries: Yes (KIDNEY STONE REMOVAL X 1) Prostatectomy, Renal Respiratory: No Cardiac: Yes High Cholesterol, Hypertension Neurological: Yes Dementia Reproductive Disorders: No Sexually Transmitted Disease: No Genitourinary: Yes (BLADDER CANCER/PROSTATE CANCER; INCONTINENCE) Prostate Problems, Kidney Stones Gastrointestinal: No Musculoskeletal: No Endocrine: No HEENT: Yes Hearing Impairment: Hard of Hearing Cancer: Yes Bladder, Prostate Did You Recieve Any Treatments: Yes (IMMUNOTHERAPY FOR BLADDER CANCER--CURRENT TREATMENT; , PROSTATECTOMY WITH RADIATION AND 3 INJECTIONS OF CHEMOTHERAPY AGENT--20 YEARS AGO) What Type of Treatment Did You: Chemotherapy, Radiation, Surgical Intervention Psychosocial: No Integumentary: No Blood Disorders: No Physical Exam Vital Signs Vital Signs - First Documented 10/05/17 20:30 Temp 97.7 Pulse 73 Resp 20 B/P (MAP) 120/102 (108) Pulse Ox 96 O2 Delivery Room Air Capillary Refill : Height, Weight, BMI Height: 5'11.00" Weight: 210lbs. oz. 95.232320li; 29.01 BMI Method:Stated General Appearance: No Apparent Distress, WD/WN, Other (STRONG ODOR OF OLD URINE) Cardiovascular: Regular Rate, Rhythm, No Edema, No JVD, No Murmur Respiratory: Normal Breath Sounds, No Accessory Muscle Use, No Respiratory Distress Gastrointestinal: Normal Bowel Sounds, No Organomegaly, No Pulsatile Mass, Soft ; No Distended, No Guarding; Tenderness (RIGHT FLANK, RIGHT MID AND LOWER ABDOMEN) Back: CVA Tenderness (R), Other (OLD, NEARLY RESOLVED BRUISING TO RIGHT FLANK AND RLQ) Extremity: Normal Capillary Refill, Normal Inspection, Normal Range of Motion, Non Tender, No Calf Tenderness, No Pedal Edema Neurologic/Psychiatric: Alert, Oriented x3, No Motor/Sensory Deficits, Normal Mood/Affect, welder gas automatic II-XII Norm as Tested Skin: Normal Color, Warm/Dry, Ecchymosis (OLD BRUISING TO RIGHT FLANK, RIGHT MID AND LOWER ABDOMEN. WITH 1 X 2 CM SCAB TO RIGHT LOWER ABDOMEN. THESE AREAS ARE TENDER TO PALPATION) Progress/Results/Core Measures Results/Orders Lab Results Laboratory Tests Test 10/05/17 20:38 10/05/17 22:10 Range/Units White Blood Count 6.9 4.3-11.0 10^3/uL Red Blood Count 4.55 4.35-5.85 10^6/uL Hemoglobin 14.2 13.3-17.7 G/DL Hematocrit 42 40-54 % Mean Corpuscular Volume 92 80-99 FL Mean Corpuscular Hemoglobin 31 25-34 PG Mean Corpuscular Hemoglobin Concent 34 32-36 G/DL Red Cell Distribution Width 14.9 H 10.0-14.5 % Platelet Count 359 130-400 10^3/uL Mean Platelet Volume 10.2 7.4-10.4 FL Neutrophils (%) (Auto) 63 42-75 % Lymphocytes (%) (Auto) 23 12-44 % Monocytes (%) (Auto) 11 0-12 % Eosinophils (%) (Auto) 3 0-10 % Basophils (%) (Auto) 0 0-10 % Neutrophils # (Auto) 4.4 1.8-7.8 X 10^3 Lymphocytes # (Auto) 1.6 1.0-4.0 X 10^3 Monocytes # (Auto) 0.8 0.0-1.0 X 10^3 Eosinophils # (Auto) 0.2 0.0-0.3 10^3/uL Basophils # (Auto) 0.0 0.0-0.1 10^3/uL Sodium Level 143 135-145 MMOL/L Potassium Level 4.1 3.6-5.0 MMOL/L Chloride Level 112 H 98-107 MMOL/L Carbon Dioxide Level 23 21-32 MMOL/L Anion Gap 8 5-14 MMOL/L Blood Urea Nitrogen 22 H 7-18 MG/DL Creatinine 1.27 0.60-1.30 MG/DL Estimat Glomerular Filtration Rate 54 BUN/Creatinine Ratio 17 Glucose Level 110 H 70-105 MG/DL Calcium Level 9.1 8.5-10.1 MG/DL Total Bilirubin 0.3 0.1-1.0 MG/DL Aspartate Amino Transf (AST/SGOT) 15 5-34 U/L Alanine Aminotransferase (ALT/SGPT) 18 0-55 U/L Alkaline Phosphatase 62 40-136 U/L Total Protein 5.7 L 6.4-8.2 GM/DL Albumin 3.6 3.2-4.5 GM/DL Amylase Level 40 25-125 U/L Lipase 13 8-78 U/L Urine Color YELLOW Urine Clarity CLEAR Urine pH 8 5-9 Urine Specific [place] 1.010 L 1.016-1.022 Urine Protein NEGATIVE NEGATIVE Urine Glucose (UA) NEGATIVE NEGATIVE Urine Ketones NEGATIVE NEGATIVE Urine Nitrite NEGATIVE NEGATIVE Urine Bilirubin NEGATIVE NEGATIVE Urine Urobilinogen NORMAL NORMAL MG/DL Urine Leukocyte Esterase 1+ H NEGATIVE Urine RBC (Auto) NEGATIVE NEGATIVE Urine RBC NONE /HPF Urine WBC 2-5 /HPF Urine Squamous Epithelial Cells 0-2 /HPF Urine Crystals NONE /LPF Urine Bacteria FEW H /HPF Urine Casts NONE /LPF Urine Mucus NEGATIVE /LPF Urine Culture Indicated YES My Orders Orders - CARLOS MORRIS DO Ct Abd/Pelvis Wo(Kidney Stone) (10/05/17 20:32) Amylase (10/05/17 20:32) Cbc With Automated Diff (10/05/17 20:32) Comprehensive Metabolic Panel (10/05/17 20:32) Lipase (10/05/17 20:32) Ua Culture If Indicated (10/05/17 20:32) Acute Abd Series (10/05/17 20:32) Saline Lock/Iv-Start (10/05/17 20:32) Ketorolac Injection (Toradol Injection) (10/05/17 20:32) Saline Lock/Iv-Start (10/05/17 20:32) Lactated Ringers (Lr 1000 Ml Iv Solution (10/05/17 20:32) Urine Culture (10/05/17 22:10) Ceftriaxone Injection (Rocephin Injectio (10/05/17 22:45) Rx-Nitrofurantoin [place] (Rx-Macrobid) (10/05/17 22:32) Rx-Tramadol Hcl (Rx-Ultram) (10/05/17 22:32) Rx-Naproxen (Rx-Naprosyn) (10/05/17 22:32) Naproxen Tablet (Naprosyn Tablet) (10/05/17 22:45) Medications Given in ED Current Medications Medications Dose Ordered Sig/Dwain Route Start Time Stop Time Status Last Admin Dose Admin Ceftriaxone Sodium 1000 mg/ Sodium Chloride 50 ml @ 100 mls/hr ONCE ONCE IV 10/05/17 22:45 10/05/17 23:14 DC 10/05/17 22:42 100 MLS/HR Lactated Ringer's 1,000 ml @ 0 mls/hr Q0M ONCE IV 10/05/17 20:32 10/05/17 20:34 DC 10/05/17 20:45 999 MLS/HR Naproxen 500 mg ONCE ONCE PO 10/05/17 22:45 10/05/17 22:46 DC 10/05/17 23:05 500 MG Vital Signs/I&O 10/05/17 10/05/17 20:30 23:13 Temp 97.7 97.7 Pulse 73 73 Resp 20 20 B/P (MAP) 120/102 (108) 120/102 (108) Pulse Ox 96 96 O2 Delivery Room Air Room Air 10/06/17 00:00 Intake Total 1000 ml Balance 1000 ml Progress Progress Note : Progress Note PAIN IMPROVED WITH TORADOL, AND NO PAIN AT REST, BUT STILL WITH PAIN WITH ANY MOVEMENTS. Diagnostic Imaging Comments CT ABDOMEN/PELVIS--NUMEROUS NON-OBSTRUCTING CALCULI IN KIDNEYS BILATERALLY. NO OBSTRUCTION OR HYDRONEPHROSIS. MULTIPLE CYSTIC LESIONS IN KIDNEYS BILATERALLY. FOCAL SOFT TISSUE EDEMA ANTERIOR TO RIGHT ILIAC WING, MAY REPRESENT CONTUSION ACUTE ABDOMEN XRAYS--NO ACUTE PROCESS, BILATERAL NEPHROLITHIASIS, MILD CARDIOMEGALY WITH CENTRAL VASCULAR CONGESTION PER RADIOLOGIST REPORTS @ 2152 Reviewed: Reviewed by Me Departure Impression Primary Impression: UTI (urinary tract infection) Additional Impressions: RIGHT FLANK AND RLQ CONTUSION INTRARENAL STONES Bladder cancer Disposition: 01 HOME, SELF-CARE Condition: Improved Departure-Patient Inst. Referrals: ARVIN QUARLES MD (PCP/Family) Primary Care Physician Patient Instructions: Bladder Cancer (DC), Contusion (DC), Urinary Tract Infection, Adult (DC) Add. Discharge Instructions: LOTS OF CLEAR LIQUIDS TAKE YOUR REGULAR MEDICATIONS PRESCRIBED FOLLOW UP WITH DR. QUARLES IN 2-3 DAYS IF NO BETTER, OTHERWISE KEEP YOUR SCHEDULED APPOINTMENT WITH YOUR UROLOGIST All discharge instructions reviewed with patient and/or family. Voiced understanding. Scripts Tramadol HCl (Ultram) 50 Mg Tablet 50 MG PO Q4H, #20 TAB Prov: CARLOS MORRIS DO 10/05/17 Nitrofurantoin Monohyd/M-Cryst (Macrobid 100 mg Capsule) 100 Mg Capsule 100 MG PO BID, #20 CAP Prov: CARLOS MORRIS DO 10/05/17 Naproxen (Naproxen) 500 Mg Tablet 500 MG PO BID, #20 TAB Prov: CARLOS MORRIS DO 10/05/17 CARLOS MORRIS DO Oct 05, 2017 21:10
[2017-10-05 21:12] LABS: ALBUMIN 3.6 GM/DL (3.2-4.5); BILIRUBIN,TOTAL 0.3 MG/DL (0.1-1.0); CALCIUM 9.1 MG/DL (8.5-10.1); CREATININE SERUM 1.27 MG/DL (0.60-1.30); POTASSIUM 4.1 MMOL/L (3.6-5.0); TOTAL PROTEIN 5.7 GM/DL (6.4-8.2)
--- NOTE | 2017-10-05 21:44 | Diagnostic Imaging Report ---
PROCEDURE: CT urinary tract, rule out kidney stone. TECHNIQUE: Multiple contiguous axial images were obtained through the abdomen and pelvis without the use of intravenous contrast. INDICATION: Right flank pain. History of kidney stones. COMPARISON: 12/12/2012 FINDINGS: There is atelectasis and scarring in the lung bases. There is mild pectus excavatum. The heart is mildly large. There is calcification of the mitral annulus. No pericardial effusion is seen. The liver demonstrates no focal lesions. Multiple calcified granulomas are seen in the spleen. The pancreas appears normal. The adrenal glands are unremarkable. There are numerous calculi in the kidneys bilaterally. The largest on the right measures 4 mm. The largest on the left measures 4 mm as well. Multiple hypodense lesions are seen in the kidneys bilaterally, which most likely represent cysts, but are incompletely evaluated on this noncontrast exam, the largest measures 4 cm at the inferior right kidney. There is no significant hydronephrosis bilaterally. No obstructing renal calculi are seen. The bowel loops are nondistended without evidence of obstruction. Multiple appendicoliths are seen in the appendix, but no appendicitis is seen. There is diverticulosis of the sigmoid colon without diverticulitis. The prostate gland has been resected. No acute osseous abnormality is seen. There is focal soft tissue edema anterior to the right iliac wing. IMPRESSION: 1. Numerous nonobstructing calculi in the kidneys bilaterally. No obstructing calculi or hydronephrosis is seen. 2. Multiple cystic lesions in the kidneys bilaterally. These are suboptimally evaluated in the absence of contrast. 3. Focal soft tissue edema anterior to the right iliac wing, may represent contusion. Please correlate with history. Dictated by: Dictated on workstation # [id number]
--- NOTE | 2017-10-05 21:46 | Diagnostic Imaging Report ---
PATIENT HISTORY: Right flank pain. TECHNIQUE: Frontal view of the chest. Upright and supine frontal views of the abdomen. COMPARISON: 12/12/2012 FINDINGS: Lung volumes are normal. There is increased central vascular congestion with mild cardiomegaly. There is aortic atherosclerosis. No pleural effusion or pneumothorax is seen. The bowel loops are nondistended without evidence of obstruction. Renal calculi are visible bilaterally, but are better seen on the concurrent CT. Multiple surgical clips are seen in the pelvis. IMPRESSION: 1. No evidence of bowel obstruction or large collection of free air. 2. Bilateral nephrolithiasis. 3. Mild cardiomegaly with central vascular congestion, which appears mildly increased. Dictated by: Dictated on workstation # [id number]
[2017-10-05 22:17] LABS: BILIRUBIN,URINE NEGATIVE (NEGATIVE); CLARITY,URINE CLEAR; COLOR,URINE YELLOW; GLUCOSE, URINE (UA) NEGATIVE (NEGATIVE); KETONES,URINE NEGATIVE (NEGATIVE); LEUKOCYTE ESTERASE ,URINE 1+ (NEGATIVE); NITRITE,URINE NEGATIVE (NEGATIVE); PH,URINE 8 (5-9); PROTEIN,URINE NEGATIVE (NEGATIVE); UROBILINOGEN,URINE NORMAL (NORMAL)
[2017-10-05 22:29] LABS: BACTERIA,URINE FEW /HPF; SQUAMOUS EPITHELIAL CELL,UR 0-2 /HPF
[2017-10-05] MEDS ORDERED: RX-NAPROXEN (NAPROSYN) 250 MG TAB PPK#4 PO STA (22:32)
[2017-10-05] MEDS ORDERED: RX-TRAMADOL 50 MG (ULTRAM) TAB PPK#4 PO STA (22:32)
[2017-10-05] MEDS ORDERED: RX-NITROFURANTOIN 100 MG (MACROBID) CAP PPK#2 PO STA (22:32)
[2017-10-05] MEDS ORDERED: NITR-65 PO (22:41)
[2017-10-05] MEDS ORDERED: NAPR-915 PO (22:41)
[2017-10-05] MEDS ORDERED: TRAM-42 PO (22:41)
[2017-10-05] MEDS ORDERED: cefTRIAXone INJECTION 1,000 MG in NS (IVPB) 50 ML IV ONE (22:45)
[2017-10-05] MEDS ORDERED: NAPROXEN 250 MG (NAPROSYN) TABLET PO ONE (22:45)
[2017-10-05 23:13] VITALS: BP 120/102
== END 2017-10-05 23:14 | disposition home or self-care (01) ==
LOC: EDUNIT# 20:11 → ER 20:12
DX: N39.0 Urinary tract infection, site not specified (principal); N20.0 Calculus of kidney; D49.4 Neoplasm of unspecified behavior of bladder; E78.00 Pure hypercholesterolemia, unspecified; I10 Essential (primary) hypertension; F03.90 Unspecified dementia, unspecified severity, without behavioral disturbance, psychotic disturbance, mood disturbance, and anxiety; Z85.46 Personal history of malignant neoplasm of prostate; Z92.21 Personal history of antineoplastic chemotherapy; Z90.79 Acquired absence of other genital organ(s); Z79.82 Long term (current) use of aspirin; Z87.442 Personal history of urinary calculi
CPT/HCPCS: 36415; 74022; 74176; 80053; 81000; 82150; 83690; 85025; 87088; 96365; 96375

== ENCOUNTER 2018-04-08 12:53 | Emergency (ER) | payer MEDICARE, BC ==
[~2018-04-08] VITALS: Ht 182.9 cm; Wt 96.2 kg
[~2018-04-08 12:53] MED LIST changes: +NAPR-915 PO; +NITR-65 PO; +TRAM-42 PO
--- OUTSIDE RECORDS SUMMARY | 2018-04-08 12:58 | XMS REPORT | Continuity of Care Document ---
Author Author [facility] Organization [facility] Address Unknown Phone Unavailable Care Team Providers Care Operator Weapon Locating Radar Name Role Phone ARVIN QUARLES MD PP Insurance Providers Payer Name Policy Number Subscriber Name Relationship [employer] Mcr Supp [id number] Kevin Gilbert Sr 01 Self / Same As Patient Wps Medicare [id number] Kevin Gilbert 01 Self / Same As Patient Advance Directives Directive Response Recorded Date Advance Directives N 12/12/12 12:26pm Organ Donor Y 12/12/12 12:26pm Problems No Known Problems or Medical conditions. Social History History Response Recorded Date/Time Alcohol Use Denies Use 12/12/12 12:26pm Recreational Drug Use N 12/12/12 12:26pm Recent Foreign Travel N 12/12/12 12:26pm Recent Infectious Disease Exposure N 02/12 12:26pm Sexually Transmitted Disease N 12/12/12 12:26pm Allergies, Adverse Reactions, Alerts Allergen Type Severity Reaction Last Updated No Known Drug Allergies 07/23/10 Medications Medication Dose Units Route Sig Qty Days Levofloxacin 250 Mg PO DAILY 10 Tamsulosin HCl (Flomax) 0.4 Mg PO DAILY 10 Acetaminophen/Hydrocodone Bitart (Lortab 5 Mg) 1 Ea PO Q4HR PRN 10 Immunizations Name Given Type Date of Influenza Vaccine 12/10/12 H Response Recorded Date/Time Status not known Unknown Results No Known Relevant Diagnostic Tests, Laboratory Data and/or Discharge Summary. Procedures Procedure Code Date COLOREC CANCR SCR; COLNSCPY HI RISK [id number] 07/23/10 Encounters Encounter Location Date/Time Departed Emergency Room [facility] 02/12 12:15pm
--- OUTSIDE RECORDS SUMMARY | 2018-04-08 12:58 | XMS REPORT | Encounter Summary ---
Author Author [facility] Organization [facility] Address Unknown Phone Unavailable Care Team Providers Care Associate Professor Of Medicine Name Role Phone Nish Larsen MD PCP Encounter Details Care Team Description Date Type Department Elgin Solorzano MD [address] [place] [address] Malignant neoplasm of overlapping sites of bladder (HCC) 02/20/2018 Hospital [facility] [address] [place] [address] Social History Date Tobacco Use Types Packs/Day Years Used Never Smoker Smokeless Tobacco: Never Used Alcohol Use Drinks/Week oz/Week Comments No Sex Assigned at Date Recorded Not on file Industry Job Start Date Occupation Not on file Not on file Not on file Travel End Travel History Travel Start No recent travel history available. as of this encounter Medications at Time of Discharge Start Date End Date Medication Sig Dispensed Refills 02/13/2017 acetaminophen (TYLENOL) Take 1 tablet 0 500 mg tablet by mouth every 6 hours as needed for Pain. Max of 4,000 mg of acetaminophen in 24 hours. CALCIUM POIndications: 2 Take 600 mg 0 tabs twice daily by mouth twice daily. Indications: 2 tabs twice daily 02/20/2018 ciprofloxacin (CIPRO) 500 Take one 2 tablet 0 mg tablet tablet by mouth twice daily. donepezil (ARICEPT) 10 mg Take 10 mg by 0 tablet mouth at bedtime daily. lisinopril (PRINIVIL, Take 40 mg by 0 ZESTRIL) 40 mg tablet mouth daily. Magnesium 250 mg tab Take 1 tablet 0 by mouth daily. oxybutynin chloride Take 5 mg by 0 (DITROPAN) 5 mg tablet mouth twice daily. Potassium 99 mg tab Take 1 tablet 0 by mouth daily. simvastatin (ZOCOR) 20 mg Take 20 mg by 0 tabletIndications: half mouth at tab once daily bedtime daily. Indications: half tab once daily as of this encounter Plan of Treatment Not on fileas of this encounter Procedures Comments Procedure Name Priority Date/Time Associated Diagnosis NON-BOTTLED BEVERAGE INSPECTOR CYTOLOGY (BODY 02/20/2018 FLUIDS/TISSUE) 10:35 AM WEALTH MANAGEMENT MANAGER in this encounter Results * NON-BOTTLED BEVERAGE INSPECTOR CYTOLOGY (BODY FLUIDS/TISSUE) (02/20/2018 10:35 AM WEALTH MANAGEMENT MANAGER) Cytology [facility] [employer] [facility] [email or web address] Department of Pathology and Laboratory Medicine [address] [place] [address] Surgical Pathology Office:[phone] :[phone] CYTOLOGY REPORT NAME: KEVIN GILBERT CYTOLOGY #: [id number] MR #: [id number] ALT ID #: [id number] #: [id number] LOCATION: [facility] DATE OF PROCEDURE: 02/20/2018 AGE: 87 SEX: M DATE RECEIVED: 02/23/2018 : 1932TIME RECEIVED:10:35 PHYSICIAN: ELGIN SOLORZANO MD DATE OF REPORT: 02/23/2018 COPY TO: ELGIN SOLORZANO MD DATE OF PRINTIN02/23/2018 Material Received: A: Urine (Voided) Gross Description: ( 1 ThinPrep) 90ml yellow fluid. ############################## ############################## ############ Final Diagnosis: A. Urine (Voided): Negative for high-grade urothelial carcinoma. Attestation: By this signature, I attest that I have personally formulated the final interpretation expressed in this report and that the above diagnosis is based upon my examination of the slides and/or other material indicated in this report. +++Electronically Signed Out By+++ mo/02/23/2018 Interpreted by: Sayda Mcnamara MD Performing Organization Address City/State/Zipcode Phone Number [facility] [address] [place] [address] in this encounter Visit Diagnoses Not on filein this encounter
--- OUTSIDE RECORDS SUMMARY | 2018-04-08 12:58 | XMS REPORT | Encounter Summary ---
Author Author [facility] Organization [facility] Address Unknown Phone Unavailable Care Team Providers Care Cloud Developer Name Role Phone Nish Larsen MD PCP Reason for Visit * Reason Comments Bladder Cancer * Outpatient Surgery (Routine) Referred By Contact Referred To Contact Status Reason Specialty Diagnoses / Procedures Jean Solorzano MD [id number] [place] [address] [facility] [address]A [address] [place] [address] No Auth Needed Urology Diagnoses RET - 3 MO F/U WITH CYSTO P rocedures UT CYSTOURETHROSCOPY PROCEDURE - 30 Encounter Details Care Team Description Date Type Department Jean Solorzano MD [address] [address] Malignant neoplasm of overlapping sites of bladder (HCC) ( Primary Dx) 02/20/2018 Procedure visit [facility] - [facility] [address]A [address] [place] [address] Social History Date Tobacco Use Types Packs/Day Years Used Never Smoker Smokeless Tobacco: Never Used Alcohol Use Drinks/Week oz/Week Comments No Sex Assigned at Date Recorded Not on file Industry Job Start Date Occupation Not on file Not on file Not on file Travel End Travel History Travel Start No recent travel history available. as of this encounter Last Filed Vital Signs Time Taken Vital Sign Reading 02/20/2018 2:02 PM MACHINE RIVETER Blood Pressure 178/104 02/20/2018 2:02 PM MACHINE RIVETER Pulse 93 - Temperature - - Respiratory Rate - - Oxygen Saturation - - Inhaled Oxygen - Concentration 02/20/2018 2:02 PM MACHINE RIVETER Weight 93.1 kg (205 lb 3.2 oz) 02/20/2018 2:02 PM MACHINE RIVETER Height 180.3 cm (5' 11") 02/20/2018 2:02 PM MACHINE RIVETER Body Mass Index 28.62 in this encounter Procedure Notes * Jean Solorzano MD - 02/20/2018 2:30 PM MACHINE RIVETER Associated Order(s): CYSTOSCOPY Procedure(s): UT CYSTOURETHROSCOPY Pre-Procedure Diagnose(s): Malignant neoplasm of overlapping sites of bladder ( HCC) Date : 02/22/2018 Surgeon: Jean Solorzano MD, [facility] Preoperative Diagnosis: bladder cancer Postoperative Diagnosis: bladder [...] to be normal in appearance and location. No evidence of any tumors was seen. The scope was retroflexed and the anterior bladder and bladder neck inspected. Again, no evidence of any tumors was seen. The scope was then removed. The patient tolerated the procedure well. He was given antibiotics to cover the instrumentation. He was discharged from the clinic in stable condition. INE RIVETER in this encounter Plan of Treatment Order Schedule Name Priority Associated Diagnoses Expected: 02/20/2018, Expires: 02/20/2019 CYTOLOGY URINES Routine Malignant neoplasm of overlapping sites of bladder (HCC) as of this encounter Procedures Comments Procedure Name Priority Date/Time Associated Diagnosis UT CYSTOURETHROSCOPY Routine 02/20/2018 Malignant neoplasm of 2:30 PM MACHINE RIVETER overlapping sites of bladder (HCC) in this encounter Results * CYSTOSCOPY (02/20/2018 2:30 PM MACHINE RIVETER) Narrative Performed At Jean Solorzano MD 02/22/2018 10:54 AM IN CLINIC Date : 02/22/2018 Surgeon: Jean Solorzano MD, FACS Preoperative Diagnosis: bladder cancer Postoperative Diagnosis: bladder [...] to be normal in appearance and location. No evidence of any tumors was seen. The scope was retroflexed and the anterior bladder and bladder neck inspected. Again, no evidence of any tumors was seen. The scope was then removed. The patient tolerated the procedure well. He was given antibiotics to cover the instrumentation. He was discharged from the clinic in stable condition. Performing Organization Address City/State/Zipcode Phone Number IN CLINIC in this encounter Visit Diagnoses Diagnosis Malignant neoplasm of overlapping sites of bladder (HCC) - Primary Malignant neoplasm of other specified sites of bladder in this encounter
--- OUTSIDE RECORDS SUMMARY | 2018-04-08 12:58 | XMS REPORT | Clinical Summary ---
Author Author [facility] Organization [facility] Address Unknown Phone Unavailable Care Team Providers Care Anatomical Embalmer Name Role Phone Nish Larsen MD PCP Source Comments Some departments are not documenting in the electronic medical record. If you do not see the information that you expected, contact Release of Information in the Health Information Management department at [phone] for further assistance in locating additional records.[facility] Allergies No Known Allergies Medications End Date Status Medication Sig Dispensed Refills Start Date Active oxybutynin chloride Take 5 mg by 0 (DITROPAN) 5 mg tablet mouth twice daily. Active simvastatin (ZOCOR) 20 mg Take 20 mg by 0 tabletIndications: half mouth at tab once daily bedtime daily. Indications: half tab once daily Active lisinopril (PRINIVIL, Take 40 mg by 0 ZESTRIL) 40 mg tablet mouth daily. Active donepezil (ARICEPT) 10 mg Take 10 mg by 0 tablet mouth at bedtime daily. Active CALCIUM POIndications: 2 Take 600 mg 0 tabs twice daily by mouth twice daily. Indications: 2 tabs twice daily Active Potassium 99 mg tab Take 1 tablet 0 by mouth daily. Active Magnesium 250 mg tab Take 1 tablet 0 by mouth daily. Active acetaminophen (TYLENOL) Take 1 tablet 0 500 mg tablet by mouth 7 every 6 hours as needed for Pain. Max of 4,000 mg of acetaminophen in 24 hours. Active ciprofloxacin (CIPRO) 500 Take one 2 tablet 0 02/20/201 mg tablet tablet by 8 mouth twice daily. Active Problems Problem Noted Date Malignant neoplasm of overlapping sites of bladder 09/10/2016 Overview: 08/08/2016: Cxbladder Detect score=0.43 09/11/2015: Cystoscopy, dilation of bladder neck contracture with Fazal sound to 28 [place], biopsy of the bladder with mapping: cTis on L, R, and posterior bladder wall biopsies. Path: cTis. [facility] Second Opinion pathology: Same as above. Muscularis propria present. 09/24/2016: Bone scan impression: No scintigraphic evidence for blastic metastasis 09/26/2016: CT Urogram: Bilateral nephrolithiasis, small bilateral renal cortitcal cysts. No hydronephrosis. Previous prostatectomy. No lymphadenectomy. Colonic diverticulosis without diverticulitis. 10/24/2016: Blue Light Cysto; Dr. Solorzano. Path: cTis. 02/13/2017: TURBT; Dr. Solorzano. Path: Negative for malignancy. L ast Assessment & Plan: Kevin Gilbert is a 86 y.o. male who presents for evaluation of cTis bladder cancer. After discussing the risks and benefits of blue light cystoscopy with TURBT, the patient has chosen to proceed with this management option. - to OR for Blue light cystoscopy with TURBT on 10/24/16 - Case requested and consented History of prostate cancer Overview: Dx: 1991. S/p open radical prostatectomy and radiation therapy -- 1991. 08/26/16: PSA < 0.01 History of radiation therapy Encounters Care Team Description Date Type Specialty Elgin Solorzano MD Malignant neoplasm of overlapping sites of bladder (HCC) (Primary Dx) 02/20/2018 Procedure visit Urology Elgin Solorzano MD Malignant neoplasm of overlapping sites of bladder (HCC) 02/20/2018 Hospital Lab Encounter from Last 3 Months Family History Medical History Relation Name Comments Diabetes Paternal Grandfather Relation Name Status Comments Paternal Grandfather Social History Date Tobacco Use Types Packs/Day Years Used Never Smoker Smokeless Tobacco: Never Used Alcohol Use Drinks/Week oz/Week Comments No Sex Assigned at Date Recorded Not on file Industry Job Start Date Occupation Not on file Not on file Not on file Travel End Travel History Travel Start No recent travel history available. Last Filed Vital Signs Time Taken Vital Sign Reading 02/20/2018 2:02 PM [employer] Blood Pressure 178/104 02/20/2018 2:02 PM [employer]OX WORK[employer] Pulse 93 02/13/2017 12:05 PM [employer]OX WORK[employer] Temperature 36.3 C (97.3 F) - Respiratory Rate - 02/13/2017 1:15 PM [employer]OX WORK[employer] Oxygen Saturation 97% - Inhaled Oxygen - Concentration 02/20/2018 2:02 PM BOX WORKER Weight 93.1 kg (205 lb 3.2 oz) 02/20/2018 2:02 PM BOX WORKER Height 180.3 cm (5' 11") 02/20/2018 2:02 PM BOX WORKER Body Mass Index 28.62 Plan of Treatment Health Maintenance Due Date Last Done Comments PHYSICAL (COMPREHENSIVE) 08/25/1937 EXAM DTAP/TDAP VACCINES (1 - 1950 Tdap) SHINGLES RECOMBINANT 1982 VACCINE (1 of 2) PNEUMONIA (PCV13/PPSV23) 1997 VACCINES (1 of 2 - PCV13) INFLUENZA VACCINE 10/01/2017 03/08/2009 Procedures Comments Procedure Name Priority Date/Time Associated Diagnosis IN CYSTOURETHROSCOPY Routine 02/20/2018 Malignant neoplasm of 2:30 PM BOX WORKER overlapping sites of bladder (HCC) NON-SERVICE ESTABLISHMENT ATTENDANT CYTOLOGY (BODY 02/20/2018 FLUIDS/TISSUE) 10:35 AM BOX WORKER from Last 3 Months Results * CYSTOSCOPY (02/20/2018 2:30 PM BOX WORKER) Narrative Performed At Elgin Solorzano MD 02/22/2018 10:54 AM IN CLINIC Date : 02/22/2018 Surgeon: Elgin Solorzano MD, [facility] Preoperative Diagnosis: bladder cancer Postoperative Diagnosis: bladder [...] Organization Address City/State/Zipcode Phone Number IN CLINIC * NON-SERVICE ESTABLISHMENT ATTENDANT CYTOLOGY (BODY FLUIDS/TISSUE) (02/20/2018 10:35 AM BOX WORKER) Cytology [facility] [email or web address] Department of Pathology and Laboratory Medicine [address] [place] [address] Surgical Pathology Office:[phone] :[phone] CYTOLOGY REPORT NAME: KEVIN GILBERT CYTOLOGY #: [id number] MR #: [id number] ALT ID #: BILLING #: [id number] LOCATION: [facility] DATE OF PROCEDURE: 02/20/2018 AGE: [...] MD Performing Organization Address City/State/Zipcode Phone Number [facility] [address] [place] [address] from Last 3 Months Insurance Payer Benefit Subscriber ID Type Phone Address Plan / Group MEDICARE MEDICARE xxxxxxxxxx Medicare PART A AND B BCBS [place] BCBS [place] xxxxxxxxxxxx PPO [facility] CARE BLUE Advance Directives Patient has advance care planning documents on file. For more information, please contact: [facility] [address] [place] [address]
--- OUTSIDE RECORDS SUMMARY | 2018-04-08 12:58 | XMS REPORT | Continuity of Care Document ---
Author Author [facility] Organization [facility] Address Unknown Phone Unavailable Allergies Active Description Code Type Severity Reaction Onset Reported/Identified Relationship to Patient Clinical Status Yes No Known Drug Allergies [id number] Drug Allergy Unknown N/A 07/23/2010 Medications There is no data. Problems Date Dx Coded Attending Type Code Diagnosis Diagnosed By 12/12/2012 COREY ROCHA APRN Ot 590.80 PYELONEPHRITIS NOS 12/12/2012 COREY ROCHA APRN Ot 592.1 CALCULUS OF URETER 12/12/2012 COREY ROCHA APRN Ot 789.09 ABDOMINAL PAIN, OTHER SPECIFIED SITE 09/05/2016 TIERNEY MILES MD Ot N39.0 URINARY TRACT INFECTION, SITE NOT SPECIF 09/05/2016 TIERNEY MILES MD Ot R33.9 RETENTION OF URINE, UNSPECIFIED 09/05/2016 TIERNEY MILES MD Ot Z85.46 PERSONAL HISTORY OF MALIGNANT NEOPLASM O 09/05/2016 TIERNEY MILES MD Ot Z87.442 PERSONAL HISTORY OF URINARY CALCULI 09/05/2016 KIM MORIN CUSHION MAKER Ot 592.0 CALCULUS OF KIDNEY 09/05/2016 KIM MORIN CUSHION MAKER Ot 593.9 RENAL URETERAL DIS NOS 09/06/2016 [...] PENIS 09/06/2016 TIERNEY MILES MD Ot Z79.82 CUSTODIAL (CURRENT) USE OF ASPIRIN 09/06/2016 TIERNEY MILES MD Ot Z87.442 PERSONAL HISTORY OF URINARY CALCULI 09/06/2016 JD BERGER TIERNEY J Ot Z90.79 ACQUIRED ABSENCE OF OTHER GENITAL ORGAN( 09/06/2016 JD BERGER TIERNEY J Ot Z96.0 PRESENCE OF UROGENITAL IMPLANTS 09/09/2016 TIERNEY MILES MD J Ot E78.00 PURE HYPERCHOLESTEROLEMIA, UNSPECIFIED 09/09/2016 TIERNEY MILES MD J Ot I10 ESSENTIAL (PRIMARY) HYPERTENSION 09/09/2016 ERWIN MILES MDUS J Ot N13.9 OBSTRUCTIVE AND REFLUX UROPATHY, UNSPECI 09/09/2016 ERWIN MILES MDUS J Ot N39.0 URINARY TRACT INFECTION, SITE NOT SPECIF 09/09/2016 ERWIN MILES MDUS J Ot N48.89 OTHER SPECIFIED DISORDERS OF PENIS 09/09/2016 TIERNEY MILES MD J Ot Z79.82 CUTCH CLEANER (CURRENT) USE OF ASPIRIN 09/09/2016 ERWIN MILES MDUS J Ot Z87.442 PERSONAL HISTORY OF URINARY CALCULI 09/09/2016 ERWIN MILES MDUS J Ot Z90.79 ACQUIRED ABSENCE OF OTHER GENITAL ORGAN( 09/09/2016 ERWIN MILES MDUS J Ot Z96.0 PRESENCE OF UROGENITAL IMPLANTS 02/16/2017 JORDI ANTHONY MD Ot E78.00 PURE HYPERCHOLESTEROLEMIA, UNSPECIFIED 02/16/2017 JORDI ANTHONY MD Ot I10 ESSENTIAL (PRIMARY) HYPERTENSION 02/16/2017 JORDI ANTHONY MD Ot R33.9 RETENTION OF URINE, UNSPECIFIED 02/16/2017 JORDI ANTHONY MD Ot Z79.82 CUSTODIAL (CURRENT) USE OF ASPIRIN 02/16/2017 JORDI ANTHONY MD Ot Z87.442 PERSONAL HISTORY OF URINARY CALCULI 02/16/2017 JORDI ANTHONY MD Ot Z90.79 ACQUIRED ABSENCE OF OTHER GENITAL ORGAN( 02/18/2017 JORDI ANTHONY MD Ot E78.00 PURE HYPERCHOLESTEROLEMIA, UNSPECIFIED 02/18/2017 JORDI ANTHONY MD Ot I10 ESSENTIAL (PRIMARY) HYPERTENSION 02/18/2017 JORDI ANTHONY MD Ot R33.9 RETENTION OF URINE, UNSPECIFIED 02/18/2017 JORDI ANTHONY MD Ot Z79.82 CUSTODIAL (CURRENT) USE OF ASPIRIN 02/18/2017 JORDI ANTHONY MD Ot Z87.442 PERSONAL HISTORY OF URINARY CALCULI 02/18/2017 JORDI ANTHONY MD Ot Z90.79 ACQUIRED ABSENCE OF OTHER GENITAL ORGAN( 07/16/2017 KIM MORIN CUSHION MAKER Ot 592.0 CALCULUS OF KIDNEY 07/16/2017 MIKEL KIM R CUSHION MAKER Ot 593.9 RENAL URETERAL DIS NOS 07/16/2017 MIKEL KIM R CUSHION MAKER Ot 592.0 CALCULUS OF KIDNEY 07/16/2017 KIM MORIN R CUSHION MAKER Ot 593.9 RENAL URETERAL DIS NOS 08/21/2017 BRIAN BERGER FACC, ALI FACP CCDS Ot E78.4 OTHER HYPERLIPIDEMIA 08/21/2017 BRIAN BERGER FACC, ALI FACP CCDS Ot I10 ESSENTIAL (PRIMARY) HYPERTENSION 08/21/2017 BRIAN BERGER FACC, ALI FACP CCDS Ot I49.3 VENTRICULAR PREMATURE DEPOLARIZATION 08/21/2017 BRIAN BERGER FACC, ALI FACP CCDS Ot I49.5 SICK SINUS SYNDROME 08/21/2017 BRIAN BERGER FACC, ALI FACP CCDS Ot E78.4 OTHER HYPERLIPIDEMIA 08/21/2017 BRIAN BERGER FACC, ALI FACP CCDS Ot I10 ESSENTIAL (PRIMARY) HYPERTENSION 08/21/2017 BRIAN BERGER FACC, ALI FACP CCDS Ot I49.3 VENTRICULAR PREMATURE DEPOLARIZATION 08/21/2017 BRIAN BERGER FACC, ALI FACP CCDS Ot I49.5 SICK SINUS SYNDROME 08/22/2017 ARVIN QUARLES MD Ot R00.2 PALPITATIONS 09/04/2017 BRIAN BERGER FACC, ALI FACP CCDS Ot E78.4 OTHER HYPERLIPIDEMIA 09/04/2017 BRIAN BERGER FACC, ALI FACP CCDS Ot I10 ESSENTIAL (PRIMARY) HYPERTENSION 09/04/2017 BRIAN BERGER FACC, ALI FACP CCDS Ot I34.0 NONRHEUMATIC MITRAL (VALVE) INSUFFICIENC 09/04/2017 BRIAN BERGER FACC, ALI FACP CCDS Ot I49.3 VENTRICULAR PREMATURE DEPOLARIZATION 09/04/2017 BRIAN BERGER FACC, ALI FACP CCDS Ot I49.5 SICK SINUS SYNDROME 09/09/2017 BRIAN BERGER FACC, ALI FACP CCDS Ot E78.4 OTHER HYPERLIPIDEMIA 09/09/2017 BRIAN MD FACC, ALI FACP CCDS Ot I10 ESSENTIAL (PRIMARY) HYPERTENSION 09/09/2017 BRIAN BERGER FACC, ALI FACP CCDS Ot I49.3 VENTRICULAR PREMATURE DEPOLARIZATION 09/09/2017 BRIAN BERGER FACJulia, ALI FACP CCDS Ot I49.5 SICK SINUS SYNDROME 09/23/2017 BRIAN BERGER FACC, ALI FACP CCDS Ot E78.4 OTHER HYPERLIPIDEMIA 09/23/2017 BRIAN BERGER FACC, ALI FACP CCDS Ot I10 ESSENTIAL (PRIMARY) HYPERTENSION 09/23/[address] [facility], ALI FACP CCDS Ot I34.0 NONRHEUMATIC MITRAL (VALVE) INSUFFICIENC 09/23/2017 BRIAN BERGER FACC, ALI FACP CCDS Ot I49.3 VENTRICULAR PREMATURE DEPOLARIZATION 09/23/2017 [facility]GER [facility]I FACP CCDS Ot I49.5 SICK SINUS SYNDROME 10/05/2017 Ot D49.4 NEOPLASM OF UNSPECIFIED BEHAVIOR OF BLAD 10/05/2017 Ot E78.00 PURE HYPERCHOLESTEROLEMIA, UNSPECIFIED 10/05/2017 Ot F03.90 UNSPECIFIED DEMENTIA WITHOUT BEHAVIORAL 10/05/2017 Ot I10 ESSENTIAL ( PRIMARY) HYPERTENSION 10/05/2017 Ot M54.5 LOW BACK PAIN 10/05/2017 Ot N20.0 CALCULUS OF KIDNEY 10/05/2017 Ot N39.0 URINARY TRACT INFECTION, SITE NOT SPECIF 10/05/2017 Ot Z79.82 CUTCH CLEANER ( CURRENT) USE OF ASPIRIN 10/05/2017 Ot Z85.46 PERSONAL HISTORY OF MALIGNANT NEOPLASM O 10/05/2017 Ot Z87.442 PERSONAL HISTORY OF URINARY CALCULI 10/05/2017 Ot Z90.79 ACQUIRED ABSENCE OF OTHER GENITAL ORGAN( 10/05/2017 Ot Z92.21 PERSONAL HISTORY OF ANTINEOPLASTIC CHEMO Procedures There is no data. Results Test [...] 09/05/16 04:00 Bacterial urine culture NG NRG Complete blood count (CBC) with automated white blood cell (WBC) differential - 10/05/17 20:38 Blood leukocytes automated count (number/volume) 6.9 10*3/uL 4.3-11.0 Blood erythrocytes automated count (number/volume) 4.55 10*6/uL 4.35-5.85 Venous blood hemoglobin measurement (mass/volume) 14.2 g/dL 13.3-17.7 Blood hematocrit (volume fraction) 42 % 40-54 Automated erythrocyte mean corpuscular volume 92 [foz_us] 80-99 Automated erythrocyte mean corpuscular hemoglobin (mass per erythrocyte) 31 pg 25-34 Automated erythrocyte mean corpuscular hemoglobin concentration measurement ( mass/volume) 34 g/dL 32-36 Automated erythrocyte distribution width ratio 14.9 % 10.0-14.5 Automated blood platelet count (count/volume) 359 10*3/uL 130-400 Automated blood platelet mean volume measurement 10.2 [foz_us] 7.4-10.4 Automated blood neutrophils/100 leukocytes 63 % 42-75 Automated blood lymphocytes/100 leukocytes 23 % 12-44 Blood monocytes/100 leukocytes 11 % 0-12 Automated blood eosinophils/100 leukocytes 3 % 0-10 Automated blood basophils/100 leukocytes 0 % 0-10 Blood neutrophils automated count (number/volume) 4.4 10*3 1.8-7.8 Blood lymphocytes automated count (number/volume) 1.6 10*3 1.0-4.0 Blood monocytes automated count (number/volume) 0.8 10*3 0.0-1.0 Automated eosinophil count 0.2 10*3/uL 0.0-0.3 Automated blood basophil count (count/volume) 0.0 10*3/uL 0.0-0.1 Comprehensive metabolic panel - 10/05/17 20:38 Serum or plasma sodium measurement (moles/volume) 143 mmol/L 135-145 Serum or plasma potassium measurement (moles/volume) 4.1 mmol/L 3.6-5.0 Serum or plasma chloride measurement (moles/volume) 112 mmol/L 98-107 Carbon dioxide 23 mmol/L 21-32 Serum or plasma anion gap determination (moles/volume) 8 mmol/L 5-14 Serum or plasma urea nitrogen measurement (mass/volume) 22 mg/dL 7-18 Serum or plasma creatinine measurement (mass/volume) 1.27 mg/dL 0.60-1.30 Serum or plasma urea nitrogen/creatinine mass ratio 17 NRG Serum or plasma creatinine measurement with calculation of estimated glomerular filtration rate 54 NRG Serum or plasma glucose measurement (mass/volume) 110 mg/dL 70-105 Serum or plasma calcium measurement (mass/volume) 9.1 mg/dL 8.5-10.1 Serum or plasma total bilirubin measurement (mass/volume) 0.3 mg/dL 0.1-1.0 Serum or plasma alkaline phosphatase measurement (enzymatic activity/volume) 62 U/L 40-136 Serum or plasma aspartate aminotransferase measurement (enzymatic activity/ volume) 15 U/L 5-34 Serum or plasma alanine aminotransferase measurement (enzymatic activity/volume ) 18 U/L 0-55 Serum or plasma protein measurement (mass/volume) 5.7 g/dL 6.4-8.2 Serum or plasma albumin measurement (mass/volume) 3.6 g/dL 3.2-4.5 Serum or plasma amylase measurement (enzymatic activity/volume) - 10/05/17 20: 38 Serum or plasma amylase measurement (enzymatic activity/volume) 40 U /L 25-125 Lipase - 10/05/17 20:38 Lipase 13 U/L 8-78 Complete urinalysis with reflex to culture - 10/05/17 22:10 Urine color determination YELLOW NRG Urine clarity determination CLEAR NRG Urine pH measurement by test strip 8 5-9 Specific gravity of urine by test strip 1.010 1.016- 1.022 Urine protein assay by test strip, semi-quantitative NEGATIVE NEGATIVE Urine glucose detection by automated test strip NEGATIVE NEGATIVE Erythrocytes detection in urine sediment by light microscopy NEGATIVE NEGATIVE Urine ketones detection by automated test strip NEGATIVE NEGATIVE Urine nitrite detection by test strip NEGATIVE NEGATIVE Urine total bilirubin detection by test strip NEGATIVE NEGATIVE Urine urobilinogen measurement by automated test strip (mass/volume) NORMAL NORMAL Urine leukocyte esterase detection by dipstick 1+ NEGATIVE Automated urine sediment erythrocyte count by microscopy (number/high power field) NONE NRG Automated urine sediment leukocyte count by microscopy (number/high power field ) [HPF] NRG Bacteria detection in urine sediment by light microscopy FEW NRG Squamous epithelial cells detection in urine sediment by light microscopy 0-2 NRG Crystals detection in urine sediment by light microscopy NONE NRG Casts detection in urine sediment by light microscopy NONE NRG Mucus detection in urine sediment by light microscopy NEGATIVE NRG Complete urinalysis with reflex to culture YES NRG Bacterial urine culture - 10/05/17 22:10 Bacterial urine culture NG NRG Encounters ACCT No. Visit Date/Time Discharge Status Pt. Type Provider Facility Loc./Unit Complaint [id number] 09/02/2017 13:31:00 09/02/2017 23:59:59 CLS Outpatient JESSE TORRES MD, FACC, FACP CCDS [facility] CARD HTN,SINUS NODE DYSFUNCTION [id number] 08/19/2017 07:22:00 08/19/2017 23:59:59 CLS Outpatient JESSE TORRES MD, FACC, FACP CCDS [facility] CARD HTN,SINUS NODE DYSFUNCTION [id number] 07/17/2017 09:08:00 07/17/2017 23:59:59 CLS Outpatient ARVIN QUARLES MD [facility] CARD PALPITATIONS [id number] 02/16/2017 07:03:00 02/16/2017 08:26:00 DIS Emergency JORDI ANTHONY MD [facility] ER CAN'T URINATE [id number] 09/06/2016 20:35:00 09/06/2016 21:07:00 DIS Emergency TIERNEY MILES MD [facility] ER CATHETER PROBLEMS [id number] 09/05/2016 03:30:00 09/05/2016 06:10:00 DIS Emergency TIERNEY MILES MD [facility] ER CAN'T URINATE [id number] 12/18/2012 14:25:00 12/18/2012 23:59:59 CLS Outpatient KIM MORIN APRN [facility] RAD ABNORMAL CT [id number] 12/12/2012 12:15:00 12/12/2012 17:15:00 DIS Emergency COREY ROCHA APRN [facility] ER KIDNEY STONES [id number] 10/05/2017 20:57:00 Document Registration
[2018-04-08 13:37] LABS: BILIRUBIN,URINE NEGATIVE (NEGATIVE); CLARITY,URINE CLEAR; COLOR,URINE YELLOW; GLUCOSE, URINE (UA) NEGATIVE (NEGATIVE); KETONES,URINE NEGATIVE (NEGATIVE); LEUKOCYTE ESTERASE ,URINE NEGATIVE (NEGATIVE); NITRITE,URINE NEGATIVE (NEGATIVE); PH,URINE 7 (5-9); PROTEIN,URINE NEGATIVE (NEGATIVE); UROBILINOGEN,URINE NORMAL (NORMAL)
[2018-04-08 13:48] LABS: BACTERIA,URINE NEGATIVE /HPF
[2018-04-08 13:49] LABS: SQUAMOUS EPITHELIAL CELL,UR RARE /HPF
[2018-04-08] MEDS ORDERED: CEFEPIME INJECTION 1,000 MG in WATER (STERILE) FOR INJECTION 10 ML IV ONE (14:00)
--- NOTE | 2018-04-08 14:11 | ED Neurological Problem ---
General Chief Complaint: Altered Mental Status Stated Complaint: CONFUSION Nursing Triage Note: SUDDEN ONSET OF CONFUSION STARTING AT 1200. STATES THAT IS STARTING TO GET BETTER NOW., Nursing Sepsis Screen: No Definite Risk Source: patient, family (son), spouse Exam Limitations: no limitations History of Present Illness Date Seen by Provider: Apr 08, 2018 Time Seen by Provider: 13:50 Initial Comments Patient presents to ER by private conveyance with his with chief complaint that about 1145 he came in from working in the barn and could remember everything that he was doing that morning but could not member his 's name or what he was doing. She said that she put a clean shirt on him and he just started taking it off. He started her with a blank face and would not answer any of her questions or do anything she asked. About 45 minutes later by the time the son drove them to the ER his symptoms completely resolved. He has no history of stroke. He's not been ill having any fevers chills cough colds dysuria discharge diarrhea constipation rash tick bites. He is under the care of a oncologist at and has been on immunotherapy or bladder cancer for the past year. He is status post prostatectomy couple years ago. He takes medications for blood pressure and in the last week or so had his blood pressure medicines doubled because his blood pressures of been high. He says he remembers taking his medications this morning. He is on potassium, lisinopril 40 mg, oxybutynin, simvastatin and donepezil. Allergies and Home Medications Allergies Coded Allergies: No Known Drug Allergies (Unverified , 07/23/10) Home Medications Aspirin 81 Mg Tab.chew, 81 MG PO DAILY, (Reported) Calcium Carbonate 600 Mg Tablet, 2,400 MG PO DAILY, (Reported) Cephalexin 500 Mg Tablet, 500 MG PO BID Prescribed by: TIERNEY MILES on 09/05/16 0537 Donepezil HCl 10 Mg Tablet, 10 MG PO DAILY, (Reported) Lisinopril 40 Mg Tablet, 40 MG PO DAILY, (Reported) Magnesium Oxide 400 Mg Capsule, 400 MG PO DAILY, (Reported) Multivit-Min/FA/Lycopene/Lut 1 Each Tablet, 1 EACH PO DAILY, (Reported) Naproxen 500 Mg Tablet, 500 MG PO BID Prescribed by: CARLOS MORRIS on 10/05/17 2241 Nitrofurantoin Monohyd/M-Cryst 100 Mg Capsule, 100 MG PO BID Prescribed by: CARLOS MORRIS on 10/05/172240 [place] 3 Polyunsat Fatty Acids 1,000 Mg Cap, 1,000 MG PO BID, (Reported) Oxybutynin Chloride 5 Mg Tablet, 5 MG PO BID, (Reported) Potassium Gluconate 99 Mg Tablet.er, 99 MG PO DAILY, (Reported) Simvastatin 20 Mg Tablet, 10 MG PO DAILY, (Reported) Tramadol HCl 50 Mg Tablet, 50 MG PO Q4H Prescribed by: CARLOS MORRIS on 10/05/172240 Patient Home Medication List Home Medication List Reviewed: Yes Review of Systems Review of Systems Constitutional: No chills, No diaphoresis Eyes: Denies Blindness, Denies Blurred Vision Ears, Nose, Mouth, Throat: denies ear pain, denies ear discharge Respiratory: No cough, No short of breath Cardiovascular: No chest pain, No edema Gastrointestinal: No abdominal pain, No constipation, No diarrhea Genitourinary: No discharge, No dysuria Musculoskeletal: No back pain, No joint pain Skin: No pruritus, No rash Past Tfzktjb-Dwcuzl-Hcqmdi Hx Patient Social History Alcohol Use: Denies Use Recreational Drug Use: No Smoking Status: Never a Smoker 2nd Hand Smoke Exposure: No Recent Foreign Travel: No Contact w/Someone Who Travel: No Recent Infectious Disease Expo: No Recent Hopitalizations: Yes (BLADDER SCRAPING) Immunizations Up To Date Date of Influenza Vaccine: Dec 10, 2012 Seasonal Allergies Seasonal Allergies: Yes Past Medical History Surgeries: Yes (KIDNEY STONE REMOVAL X 1) Prostatectomy, Renal Respiratory: No Cardiac: Yes High Cholesterol, Hypertension Neurological: Yes Dementia Reproductive Disorders: No Sexually Transmitted Disease: No Genitourinary: Yes (BLADDER CANCER/PROSTATE CANCER; INCONTINENCE) Prostate Problems, Kidney Stones Gastrointestinal: No Musculoskeletal: No Endocrine: No HEENT: Yes Hearing Impairment: Hard of Hearing Cancer: Yes Bladder, Prostate Did You Recieve Any Treatments: Yes What Type of Treatment Did You: Chemotherapy, Radiation, Surgical Intervention Psychosocial: No Integumentary: No Blood Disorders: No Physical Exam Vital Signs Vital Signs - First Documented 04/08/18 12:59 Temp 97.9 Pulse 79 Resp 16 B/P (MAP) 181/121 (141) Pulse Ox 94 O2 Delivery Room Air Capillary Refill : Less Than 3 Seconds Height, Weight, BMI Height: 6'11.00" Weight: 212lbs. oz. 96.273622pq; 29.01 BMI Method:Stated General Appearance: WD/WN, no apparent distress HEENT: PERRL/EOMI, normal ENT inspection, TMs normal, pharynx normal, other ( bilateral hearing aids) Neck: non-tender, full range of motion, normal inspection Respiratory: chest non-tender, lungs clear, normal breath sounds, no respiratory distress, no accessory muscle use Cardiovascular: normal peripheral pulses, regular rate, rhythm, no edema, no murmur Peripheral Pulses: 2+ Radial Pulses (R), 2+ Radial Pulses (L) Gastrointestinal: normal bowel sounds, non tender, soft Extremities: normal range of motion, non-tender, normal inspection, no pedal edema, normal capillary refill Neurologic/Psychiatric: dental nurse II-XII nml as tested, no motor/sensory deficits, alert, normal mood/affect, oriented x 3 Crainal Nerves: normal hearing, normal speech, PERRL Coordination/Gait: normal finger to nose, normal gait Motor/Sensory: no motor deficit, no sensory deficit, no pronator drift Skin: normal color, warm/dry Stroke Onset of Symptoms Date of Onset of Symptoms: Apr 08, 2018 Time of Symptom Onset: 11:45 Onset of Symptoms: Yes Symptoms onset unknown: No NIH Stroke Scale Assessment Select: Initial Level of Consciousness: 0=Alert (0), Level of Consciousness- Questions: 0=Answers both month/age (0), LOC Commands: 0=Performs both tasks (0) , Gaze: Normal (0), Visual Camp: 0=No visual loss (0), Facial Movement ( Facial Paresis): 0=Normal symmetrical mnt (0), Motor Function-Arms Right: 0=No drift (0), Motor Function-Arms Left: 0=No drift (0), Motor Function-Legs Right: 0=No drift (0), Motor Function-Legs Left: 0=No drift (0), Limb Ataxia: 0=Absent (0), Sensory: 0=Normal:no loss (0), Best Language: 0=No aphasia (0), Dysarthria : 0=Normal (0), Extinction & Inattention: 0=No abnormality (0), Total: 0 Stroke Thrombolytic Exclusion Age 18 or Over: Yes Acute intenal hemorrhage: No History of CVA: No Uncontrolled Coagulation Defec: No Intracranial Hemorrhage: No Severe Hypertension: No GI or Bleed: No Subarachnoid Hemorrhage: No Intracranial Neoplasm/Aneurysm: No Oral Anticoagulants: No Surgery or Trauma: No Puncture of Non-Compressible V: No Recent CPR: No Diabetic Hemorrhagic Retinopat: No Organ Biopsy: No Recent Obstetric Delivery: No Significant Hepatic Dysfunctio: No NIH Stoke Scale >22: No Bacterial Endocarditis: No Pericarditis: No Improving Symptoms: Yes TPA Contraindication: No IV - TPa Received IV - TPa Procedure Performed?: No (symptoms resolved by the time he arrived in the ER) Focused Exam Lactate Level 04/08/18 14:50: Lactic Acid Level 1.08 Lactic Acid Level Laboratory Tests Test 04/08/18 14:50 Lactic Acid Level 1.08 MMOL/L (0.50-2.00) Progress/Results/Core Measures Results/Orders Lab Results Laboratory Tests Test 04/08/18 13:30 04/08/18 14:00 04/08/18 14:16 04/08/18 14:50 Range/Units Urine Color YELLOW Urine Clarity CLEAR Urine pH 7 5-9 Urine Specific [place] 1.010 L 1.016-1.022 Urine Protein NEGATIVE NEGATIVE Urine Glucose (UA) NEGATIVE NEGATIVE Urine Ketones NEGATIVE NEGATIVE Urine Nitrite NEGATIVE NEGATIVE Urine Bilirubin NEGATIVE NEGATIVE Urine Urobilinogen NORMAL NORMAL MG/DL Urine Leukocyte Esterase NEGATIVE NEGATIVE Urine RBC (Auto) NEGATIVE NEGATIVE Urine RBC RARE /HPF Urine WBC 0-2 /HPF Urine Squamous Epithelial Cells RARE /HPF Urine Crystals NONE /LPF Urine Bacteria NEGATIVE /HPF Urine Casts NONE /LPF Urine Mucus NEGATIVE /LPF Urine Culture Indicated NO White Blood Count 8.0 4.3-11.0 10^3/uL Red Blood Count 5.43 4.35-5.85 10^6/uL Hemoglobin 16.7 13.3-17.7 G/DL Hematocrit 48 40-54 % Mean Corpuscular Volume 89 80-99 FL Mean Corpuscular Hemoglobin 31 25-34 PG Mean Corpuscular Hemoglobin Concent 35 32-36 G/DL Red Cell Distribution Width 14.8 H 10.0-14.5 % Platelet Count 314 130-400 10^3/uL Mean Platelet Volume 10.2 7.4-10.4 FL Neutrophils (%) (Auto) 76 H 42-75 % Lymphocytes (%) (Auto) 16 12-44 % Monocytes (%) (Auto) 7 0-12 % Eosinophils (%) (Auto) 2 0-10 % Basophils (%) (Auto) 0 0-10 % Neutrophils # (Auto) 6.1 1.8-7.8 X 10^3 Lymphocytes # (Auto) 1.3 1.0-4.0 X 10^3 Monocytes # (Auto) 0.5 0.0-1.0 X 10^3 Eosinophils # (Auto) 0.1 0.0-0.3 10^3/uL Basophils # (Auto) 0.0 0.0-0.1 10^3/uL Prothrombin Time 14.3 12.2-14.7 SEC INR Comment 1.1 0.8-1.4 Activated Partial Thromboplast Time 28 24-35 SEC D-Dimer 0.28 0.00-0.49 UG/ML Sodium Level 137 135-145 MMOL/L Potassium Level 4.5 3.6-5.0 MMOL/L Chloride Level 105 98-107 MMOL/L Carbon Dioxide Level 22 21-32 MMOL/L Anion Gap 10 5-14 MMOL/L Blood Urea Nitrogen 17 7-18 MG/DL Creatinine 1.04 0.60-1.30 MG/DL Estimat Glomerular Filtration Rate > 60 BUN/Creatinine Ratio 16 Glucose Level 111 H 70-105 MG/DL Calcium Level 9.4 8.5-10.1 MG/DL Corrected Calcium 9.3 8.5-10.1 MG/DL Total Bilirubin 0.7 0.1-1.0 MG/DL Aspartate Amino Transf (AST/SGOT) 25 5-34 U/L Alanine Aminotransferase (ALT/SGPT) 36 0-55 U/L Alkaline Phosphatase 65 40-136 U/L Total Protein 6.3 L 6.4-8.2 GM/DL Albumin 4.1 3.2-4.5 GM/DL Glucometer 120 H 70-110 MG/DL Lactic Acid Level 1.08 0.50-2.00 MMOL/L Micro Results Microbiology 04/08/18 Influenza Types A,B Antigen (CRISTAL) - Final, Complete My Orders Orders - TIERNEY MILES Cbc With Automated Diff (04/08/18 13:58) Comprehensive Metabolic Panel (04/08/18 13:58) Blood Culture (04/08/18 13:58) Sputum Culture (04/08/18 13:58) Urinalysis (04/08/18 13:58) Urine Culture (04/08/18 13:58) Protime With Inr (04/08/18 13:58) Partial Thromboplastin Time (04/08/18 13:58) Saline Lock/Iv-Start (04/08/18 13:58) Saline Lock/Iv-Start (04/08/18 13:58) Ekg Tracing (04/08/18 13:58) Vital Signs Adult Sepsis Patie Q15M (04/08/18 13:58) O2 (04/08/18 13:58) Remove Rings In Anticipation O (04/08/18 13:58) Lactic Acid Analyzer (04/08/18 13:58) Chest Pa/Lat (2 View) (04/08/18 13:58) Cefepime Injection (Maxipime Injection) (04/08/18 14:00) Ct Head Wo (04/08/18 13:58) Influenza A And B Antigens (04/08/18 14:04) Accucheck Stat ONCE (04/08/18 14:05) Fibrin Degradation Products (04/08/18 14:32) Ct Angio Head/Neck (04/08/18 14:51) Iohexol Injection (Omnipaque 350 Mg/Ml 1 (04/08/18 15:00) Contrast Received (Contrast Received) (04/08/18 15:00) Ns (Ivpb) (Sodium Chloride 0.9% Ivpb Bag (04/08/18 15:00) Labetalol Injection (Normodyne Injection (04/08/18 17:30) Apixaban Tablet (Eliquis Tablet) (04/08/18 17:30) Medications Given in ED Current Medications Medications Dose Ordered Sig/Dwain Route Start Time Stop Time Status Last Admin Dose Admin Cefepime HCl 1000 mg/Sterile Water 10 ml @ 200 mls/hr ONCE ONCE IV 04/08/18 14:00 04/08/18 14:05 DC 04/08/18 14:51 200 MLS/HR Iohexol 75 ml ONCE ONCE IV 04/08/18 15:00 04/08/18 15:01 DC 04/08/18 15:04 75 ML Sodium Chloride 100 ml ONCE ONCE IV 04/08/18 15:00 04/08/18 15:01 DC 04/08/18 15:04 80 ML Vital Signs/I&O 04/08/18 12:59 Temp 97.9 Pulse 79 Resp 16 B/P (MAP) 181/121 (141) Pulse Ox 94 O2 Delivery Room Air Blood Pressure Mean: 141 Progress Progress Note #1: Time: 14:15 Progress Note Patient had confusion and aphasia by history but it resolved within 45 minutes before he got to the ER. Could be a delirium since and has a sudden acute onset versus TIA. His blood pressure was quite high 180s when he first got here and it 's now 154/106. We'll get a CT, blood sugar even though is not diabetic and labs doing a septic workup looking for infection although he has no clinical clues. Cefepime would cover unknown infection. Viral could be a possibility although is not giving any symptoms. Lastly his oxygen rate has been on the low end 90-92% on room air. He does not use oxygen at baseline. His heart rates been elevated in the 100-110 range. We will do a d-dimer about the remote possibility of a pulmonary embolism. Blood sugar 120. As he sits on the monitor he went into atrial fibrillation so we'll obtain another EKG. Echocardiogram by Dr. Loera 2017: 60-65% with normal systolic function and concentric hypertrophy. Grade 1 diastolic dysfunction. Carotid ultrasound from March 2018 demonstrates mild carotid arterial disease bilaterally with good flow. Progress Note #2: Time: 17:31 Progress Note The patient is resting comfortably in the room with family. He still has no neurologic symptoms. Normal gait. Blood pressure has gone back up to now 190s over 140s so we'll give him some labetalol in addition to starting the Eliquis. We've discussed with neurology and they don't recommend any more inpatient workup beyond the CT angiography was negative. They do recommend EEG, echo, MRI outpatient within the next week. Spoke with cardiology and they recommended 24- hour observation given the risk for stroke and the patient living so far away from [facility]. Since we don't have any rooms available and are on a total diversion at [facility] [employer] we will talk to [facility]. Rupesh was on Meme diversion. Initial ECG Impression Date: Apr 08, 2018 Initial ECG Impression Time: 14:13 Initial ECG Rate: 103 Initial ECG Rhythm: A Fib/Flutter Initial ECG Intervals: QT (456) Initial ECG Impression: Atrial Fibrillation Initial ECG Comparisson: Unchanged Comment Atrial fibrillation without rapid ventricular response. No ST segment elevation or depression. Suspect novel onset A. fib. Compared to August 2017 sinus rhythm with a MS interval of 230 ms this is a new change. No previous history of Atrial fibrillation per patient or medical records. Diagnostic Imaging Diagonstic Imaging: Xray Plain Films/CT/US/NM/MRI: chest (2v) Comments [facility] [place] [place] NAME: KAYLEIGH CAMPOS [facility] REC#: [id number] PT STATUS: REG ER : 1930 PHYSICIAN: TIERNEY MILES MD ADMIT DATE: 04/08/18/ER Draft Date of Exam:04/08/18 CHEST PA/LAT (2 VIEW) INDICATION: Sudden onset of confusion. TIME OF EXAM: 2:31 PM COMPARISON: Correlation is made with prior study from 10/05/2017. FINDINGS: The heart size is stable. Lungs are clear. No infiltrate or failure is seen. No effusion or pneumothorax is detected. IMPRESSION: No acute cardiopulmonary process is detected. Dictated on workstation # [id number] Dict: 04/08/18 1443 Trans: 04/08/18 1452 [id number] Interpreted by: JENNIFER ARMANDO MD Electronically signed by: Reviewed: Reviewed by Me Diagonstic Imaging: CT (non contrast) Plain Films/CT/US/NM/MRI: head Comments No acute intracranial hemorrhage, mass effect, tumor or midline shift. There is no calvarial fracture. [facility] [place] [place] NAME: KAYLEIGH CAMPOS MED REC#: [id number] PT STATUS: REG ER : 1930 PHYSICIAN: TIERNEY MILES MD ADMIT DATE: 04/08/18/ER Draft Date of Exam:04/08/18 CT HEAD WO PROCEDURE: CT head without contrast. TECHNIQUE: Multiple contiguous axial images were obtained through the brain without the use of intravenous contrast. INDICATION: Altered metal status and confusion. COMPARISON: No prior studies are available for comparison. FINDINGS: Ventricles and sulci are prominent consistent with the patient's age. Periventricular hypodensity is noted consistent with senescent change. No sulcal effacement or midline shift is identified. No acute intra-axial or extra-axial hemorrhage is detected. Cisterns are patent. There is opacification of the sphenoid sinus. Frontal sinus and ethmoid air cells are clear. Mastoids are clear. IMPRESSION: 1. Senescent changes. No acute intracranial process is detected. 2. Opacified sphenoid sinus, perhaps owing to sphenoid sinusitis. Dictated on workstation # [id number] Dict: 04/08/18 1430 Trans: 04/08/18 1435 [id number] Interpreted by: JENNIFER ARMANDO MD Electronically signed by: Reviewed: Reviewed by Me Diagonstic Imaging: CT (angiogram) Plain Films/CT/US/NM/MRI: head (neck) Comments NAME: KAYLEIGH CAMPOS MED REC#: [id number] PHYSICIAN: TIERNEY MILES MD CC: JENNIFER ARMANDO MD; TIERNEY MILES Page 2 of 2 RADIOLOGY REPORT [facility] [place] CC: JENNIFER ARMANDO MD; TIERNEY MILES Page 1 of 2 RADIOLOGY REPORT NAME: KAYLEIGH CAMPOS MED REC#: [id number] PT STATUS: REG ER : 1930 PHYSICIAN: TIERNEY MILES MD ADMIT DATE: 04/08/18/ER Signed Date of Exam: 04/08/18 CT ANGIO HEAD/NECK PROCEDURE: CT angiography of the head and CT angiography of the neck with and without contrast. TECHNIQUE: Contiguous noncontrast images were obtained from the skull base through the vertex. After intravenous contrast administration, helical CT angiography of the neck was performed. Source data was reformatted into multiple MIP projections. Delayed post contrast acquisition was also obtained. INDICATION: Altered metal status and confusion. FINDINGS: There is a three-vessel branching pattern to the aortic arch. There is some calcified plaque at the origin of the left subclavian artery. The right and left common carotid arteries appear to be widely patent. There is some calcified plaque at the carotid bifurcations bilaterally. Internal carotid arteries show some tortuosity but do appear to be patent. There is a moderate amount of calcified plaque at the carotid siphons bilaterally. Bilateral middle cerebral arteries appear to be patent. Bilateral anterior cerebral arteries are patent. No thromboemboli are seen. Vertebral arteries appear to be codominant. Basilar artery is patent. Posterior cerebral arteries are patent. IMPRESSION: Bilateral carotid plaque. No definite intracranial thromboemboli are identified. Dictated by: Dictated on workstation # [id number] Dict: 04/08/18 1527 Trans: 04/08/18 1634 Interpreted by: JENNIFER ARMANDO MD Electronically signed by: JENNIFER ARMANDO MD 04/08/18 1634 Reviewed: Reviewed by Me Consults #1: Consults Notes Dr Miller: stroke neurologist on-call at 1435 agrees that at TIA versus seizure versus infection. She recommends getting a CTA angiogram of the head and neck and also that we should initiate Eliquis. If the CT angiogram is negative for stenosis or lesion than she would be okay with getting an echocardiogram outpatient as soon as possible as well as MRI and EEG within the next week. Consults #2: Consulting Physician: JESSE LOERA MD FACP FAC CCDS Consults Notes Discussed case lab EKG imaging findings and Dr. Loera recommends at least 24- hour observation stay. Start L acquits. He does not think VANESSA or echo absolute has to be done same day. Departure Impression Primary Impression: Aphasia Additional Impression: Stroke Qualified Codes: I63.9 - Cerebral infarction, unspecified Disposition: XF [facility] Condition: Improved Transfer Time Spoke to Accepting Phy: 17:30 Transfer Progress Notes Chantell: Dr Raffaele Feldman accept the patient for observation after TIA. We discussed the case lab imaging findings and plan as laid out by cardiology and neurology. Transfer Facility: [place], [place] Method of Transfer: EMS Departure-Patient Inst. Referrals: ARVIN QUARLES MD (PCP/Family) Primary Care Physician Copy Copies To 1: ARVIN QUARLES MD, TITUS J Apr 08, 2018 14:11
[2018-04-08 14:14] LABS: BASOPHILS % (AUTO) 0 % (0-10); EOSINOPHILS # (AUTO) 0.1 10^3/uL (0.0-0.3); EOSINOPHILS % (AUTO) 2 % (0-10); HEMATOCRIT 48 % (40-54); HEMOGLOBIN 16.7 G/DL (13.3-17.7); LYMPHOCYTES # (AUTO) 1.3 X 10^3 (1.0-4.0); LYMPHOCYTES % (AUTO) 16 % (12-44); MEAN CORPUSCULAR HEMOGLOBIN 31 PG (25-34); MEAN CORPUSCULAR HGB CONC 35 G/DL (32-36); MEAN CORPUSCULAR VOLUME 89 FL (80-99); MEAN PLATELET VOLUME 10.2 FL (7.4-10.4); MONOCYTES # (AUTO) 0.5 X 10^3 (0.0-1.0); MONOCYTES % (AUTO) 7 % (0-12); NEUTROPHILS # (AUTO) 6.1 X 10^3 (1.8-7.8); NEUTROPHILS % (AUTO) 76 % (42-75); PLATELET COUNT 314 10^3/uL (130-400); RED CELL DISTRIBUTION WIDTH 14.8 % (10.0-14.5)
[2018-04-08 14:36] LABS: INR 1.1 (0.8-1.4); PROTHROMBIN TIME PATIENT 14.3 SEC (12.2-14.7)
--- NOTE | 2018-04-08 14:36 | Diagnostic Imaging Report ---
PROCEDURE: CT head without contrast. TECHNIQUE: Multiple contiguous axial images were obtained through the brain without the use of intravenous contrast. INDICATION: Altered metal status and confusion. COMPARISON: No prior studies are available for comparison. FINDINGS: Ventricles and sulci are prominent consistent with the patient's age. Periventricular hypodensity is noted consistent with senescent change. No sulcal effacement or midline shift is identified. No acute intra-axial or extra-axial hemorrhage is detected. Cisterns are patent. There is opacification of the sphenoid sinus. Frontal sinus and ethmoid air cells are clear. Mastoids are clear. IMPRESSION: 1. Senescent changes. No acute intracranial process is detected. 2. Opacified sphenoid sinus, perhaps owing to sphenoid sinusitis. Dictated by: Dictated on workstation # [id number]
[2018-04-08 14:48] LABS: ALANINE AMINOTRANSFERASE 36 U/L (0-55); ALBUMIN 4.1 GM/DL (3.2-4.5); ALKALINE PHOSPHATASE 65 U/L (40-136); BILIRUBIN,TOTAL 0.7 MG/DL (0.1-1.0); BUN/CREATININE RATIO 16; CALCIUM 9.4 MG/DL (8.5-10.1); CARBON DIOXIDE 22 MMOL/L (21-32); CHLORIDE 105 MMOL/L (98-107); CREATININE SERUM 1.04 MG/DL (0.60-1.30); GFR ESTIMATED > 60; GLUCOSE 111 MG/DL (70-105); POTASSIUM 4.5 MMOL/L (3.6-5.0); SODIUM 137 MMOL/L (135-145); TOTAL PROTEIN 6.3 GM/DL (6.4-8.2)
--- NOTE | 2018-04-08 14:52 | Diagnostic Imaging Report ---
INDICATION: Sudden onset of confusion. TIME OF EXAM: 2:31 PM COMPARISON: Correlation is made with prior study from 10/05/2017. FINDINGS: The heart size is stable. Lungs are clear. No infiltrate or failure is seen. No effusion or pneumothorax is detected. IMPRESSION: No acute cardiopulmonary process is detected. Dictated by: Dictated on workstation # [id number]
[2018-04-08] MEDS ORDERED: RECEIVED CONTRAST (Hold Metformin) IV SCH (15:00)
[2018-04-08] MEDS ORDERED: NS 100 ML (IVPB) BAG IV ONE (15:00)
[2018-04-08] MEDS ORDERED: IOHEXOL 350 MG/ML 100 ML (OMNIPAQUE 350) VIAL IV ONE (15:00)
[2018-04-08 15:08] LABS: BILIRUBIN,URINE NEGATIVE (NEGATIVE); CLARITY,URINE CLEAR; COLOR,URINE YELLOW; GLUCOSE, URINE (UA) NEGATIVE (NEGATIVE); KETONES,URINE NEGATIVE (NEGATIVE); LEUKOCYTE ESTERASE ,URINE NEGATIVE (NEGATIVE); NITRITE,URINE NEGATIVE (NEGATIVE); PH,URINE 7 (5-9); PROTEIN,URINE NEGATIVE (NEGATIVE); UROBILINOGEN,URINE NORMAL (NORMAL)
[2018-04-08 15:30] LABS: BACTERIA,URINE NEGATIVE /HPF; RBC,URINE RARE /HPF; WBC,URINE 0-2 /HPF
--- NOTE | 2018-04-08 15:52 | Diagnostic Imaging Report ---
PROCEDURE: CT angiography of the head and CT angiography of the neck with and without contrast. TECHNIQUE: Contiguous noncontrast images were obtained from the skull base through the vertex. After intravenous contrast administration, helical CT angiography of the neck was performed. Source data was reformatted into multiple MIP projections. Delayed post contrast acquisition was also obtained. INDICATION: Altered metal status and confusion. FINDINGS: There is a three-vessel branching pattern to the aortic arch. There is some calcified plaque at the origin of the left subclavian artery. The right and left common carotid arteries appear to be widely patent. There is some calcified plaque at the carotid bifurcations bilaterally. Internal carotid arteries show some tortuosity but do appear to be patent. There is a moderate amount of calcified plaque at the carotid siphons bilaterally. Bilateral middle cerebral arteries appear to be patent. Bilateral anterior cerebral arteries are patent. No thromboemboli are seen. Vertebral arteries appear to be codominant. Basilar artery is patent. Posterior cerebral arteries are patent. IMPRESSION: Bilateral carotid plaque. No definite intracranial thromboemboli are identified. Dictated by: Dictated on workstation # [id number]
[2018-04-08] MEDS ORDERED: LABETALOL HCL 20 MG/4 ML VIAL IV ONE (17:30)
[2018-04-08] MEDS ORDERED: APIXABAN 5 MG (ELIQUIS) TABLET PO ONE (17:30)
[2018-04-08 18:50] VITALS: BP 165/95
== END 2018-04-08 19:38 | disposition short-term general hospital (02) ==
LOC: EDUNIT# 12:53 → ER 12:54
DX: I63.9 Cerebral infarction, unspecified (principal); E78.00 Pure hypercholesterolemia, unspecified; I10 Essential (primary) hypertension; F03.90 Unspecified dementia, unspecified severity, without behavioral disturbance, psychotic disturbance, mood disturbance, and anxiety; Z79.82 Long term (current) use of aspirin; Z85.51 Personal history of malignant neoplasm of bladder; Z85.46 Personal history of malignant neoplasm of prostate; Z92.21 Personal history of antineoplastic chemotherapy; Z90.79 Acquired absence of other genital organ(s); Z87.442 Personal history of urinary calculi
CPT/HCPCS: 36415; 70450; 70496; 70498; 71046; 80053; 81000; 82962; 83605; 85025; 85379; 85610; 85730; 87040; 87088; 87804; 93005

== ENCOUNTER → 2020-09-14 | Outpatient (CLI) | payer MEDICARE, BC ==
[~2020-09-14] MED LIST changes: -CALC600T12 PO; +CALC600T91 PO; +CATHETER FLUSH 10 ML SYR IV PRN; +HOLD METFORMIN - RECEIVED CONTRAST 20 ML VIAL IV SCH; +IOHEXOL 350 MG/ML 100 ML (OMNIPAQUE 350) VIAL IV ONE; -LISI40TA PO; +LISI40TA9 PO; +NS 100 ML (IVPB) BAG IV ONE; +OXYB5TAB13 PO; -OXYB5TAB9 PO; +SIMV20TA26 PO; -SIMV20TA3 PO
--- NOTE | 2020-09-14 11:51 | Diagnostic Imaging Report ---
PROCEDURE: CT chest, abdomen, and pelvis with contrast. TECHNIQUE: Multiple contiguous axial images were obtained through the chest, abdomen, and pelvis after the administration of intravenous contrast. Auto Exposure Controls were utilized during the CT exam to meet ALARA standards for radiation dose reduction. INDICATION: Fall 2 days ago with rib pain as well as abdominal pain. Ecchymosis. History of prostate and bladder cancer. Comparison with CT abdomen and pelvis of 10/05/2017. FINDINGS: CT CHEST: Mild atelectasis noted in the lung bases. There is a calcified granuloma posteriorly in right upper lobe. No pneumothorax or pleural effusion demonstrated. There is good opacification of the aorta which shows mild atherosclerotic disease. The aortic root measures 3.8 cm. No evidence of aortic dissection. No mediastinal or hilar adenopathy pathologic size. No evidence of rib fractures. Sagittal reformatted images show good alignment of the thoracic spine with good preservation of body height. There is moderate degenerative disc disease. The soft tissues about the chest wall appear normal. IMPRESSION: 1. Mild bilateral basilar atelectasis with no acute change. 2. Mild aneurysmal dilatation of the ascending aorta. CT abdomen and pelvis: Aorta is well opacified following IV contrast. There is diffuse atherosclerotic disease. There is moderate stenosis noted of the right and left common iliac artery estimated 50-70% bilaterally more severe on the left. There is no free air or free fluid. Bowel gas pattern appears normal. There is good enhancement of the abdominal organs. No evidence of lacerations of the liver, spleen or kidneys. Gallbladder and bile duct are normal. Pancreas is normal. There is a simple cyst in the left kidney laterally measuring 2 cm. No intra-abdominal adenopathy of pathologic size. There is prostatectomy. Bladder is not distended. No evidence of pelvic fracture. Lumbosacral spine shows good alignment with moderate degenerative change. IMPRESSION: No acute abnormalities are demonstrated within the abdomen or pelvis. Dictated by: Dictated on workstation # [id number]
== END ==
LOC: RAD 11:15
PROVIDERS: ATTEND Family Medicine
DX: J98.11 Atelectasis (principal); I71.2 Thoracic aortic aneurysm, without rupture; S30.1XXA Contusion of abdominal wall, initial encounter; E78.49 Other hyperlipidemia; I10 Essential (primary) hypertension; G47.30 Sleep apnea, unspecified; J01.90 Acute sinusitis, unspecified; Z85.46 Personal history of malignant neoplasm of prostate; Z79.01 Long term (current) use of anticoagulants; Z85.51 Personal history of malignant neoplasm of bladder; Y30.XXXA Falling, jumping or pushed from a high place, undetermined intent, initial encounter
CPT/HCPCS: 71260; 74177

== ENCOUNTER 2021-08-20 10:42 | Emergency (ER) | payer MEDICARE, BC ==
[~2021-08-20] VITALS: Ht 180 cm; Wt 85.5 kg
[~2021-08-20 10:42] MED LIST changes: -CATHETER FLUSH 10 ML SYR IV PRN; -HOLD METFORMIN - RECEIVED CONTRAST 20 ML VIAL IV SCH; -IOHEXOL 350 MG/ML 100 ML (OMNIPAQUE 350) VIAL IV ONE; -NS 100 ML (IVPB) BAG IV ONE
[2021-08-20 11:22] VITALS: BP 158/82
--- NOTE | 2021-08-20 11:29 | ED GU-Female ---
General Chief Complaint: - Reproductive Stated Complaint: UNABLE TO URINATE Source: patient Exam Limitations: no limitations History of Present Illness Date Seen by Provider: Aug 20, 2021 Time Seen by Provider: 11:13 Initial Comments This is an 89-year-old male who presented to the ER with complaints of difficulty with urination. States that he has a history of bladder cancer and has had a TURP. However he has had no issues since he was treated in 2014. States that he is having difficulty going and frequency. He is only able to urinate a small amount at a time. Has a slight burning sensation. States that he feels like he has a urinary tract infection. No fever, chills, nausea, vomiting, diarrhea, abdominal pain. Allergies and Home Medications Allergies Coded Allergies: No Known Drug Allergies (Unverified , 07/23/10) Patient Home Medication List Home Medication List Reviewed: Yes Aspirin (Aspirin) 81 Mg Tab.chew, 81 MG PO DAILY, (Reported) Entered as Reported by: DORIS OTOOLE on 09/05/16533 Calcium Carbonate (Calcium) 600 Mg Tablet, 2,400 MG PO DAILY, (Reported) Entered as Reported by: DORIS OTOOLE on 09/05/16533 Cephalexin (Cephalexin) 500 Mg Tablet, 500 MG PO BID Prescribed by: HENRIQUE KNIGHT on 08/20/21 1257 Last Action: New Order Donepezil HCl (Donepezil HCl) 10 Mg Tablet, 10 MG PO DAILY, (Reported) Entered as Reported by: DORIS OTOOLE on 09/05/16518 Lisinopril (Lisinopril) 40 Mg Tablet, 40 MG PO DAILY, (Reported) Entered as Reported by: DORIS OTOOLE on 09/05/16518 Magnesium Oxide (Magnesium) 400 Mg Capsule, 400 MG PO DAILY, (Reported) Entered as Reported by: DORIS OTOOLE on 09/05/16533 Multivit-Min/FA/Lycopene/Lut (Centrum Silver Tablet) 1 Each Tablet, 1 EACH PO DAILY, (Reported) Entered as Reported by: DORIS OTOOLE on 09/05/16533 Naproxen (Naproxen) 500 Mg Tablet, 500 MG PO BID Prescribed by: CARLOS MORIRS on 10/05/17 4693 Nitrofurantoin Monohyd/M-Cryst (Macrobid 100 mg Capsule) 100 Mg Capsule, 100 MG PO BID Prescribed by: CARLOS MORRIS on 10/05/172240 [place] 3 Polyunsat Fatty Acids (Fish Oil 1,000 mg Capsule) 1,000 Mg Cap, 1,000 MG PO BID, (Reported) Entered as Reported by: DORIS OTOOLE on 09/05/16518 Oxybutynin Chloride (Oxybutynin Chloride) 5 Mg Tablet, 5 MG PO BID, (Reported) Entered as Reported by: DORIS OTOOLE on 09/05/16518 Potassium Gluconate (Potassium Gluconate) 99 Mg Tablet.er, 99 MG PO DAILY, (Reported) Entered as Reported by: DORIS OTOOLE on 09/05/16533 Simvastatin (Simvastatin) 20 Mg Tablet, 10 MG PO DAILY, (Reported) Entered as Reported by: DORIS OTOOLE on 09/05/16518 Tramadol HCl (Ultram) 50 Mg Tablet, 50 MG PO Q4H Prescribed by: CARLOS MORRIS on 10/05/172240 Review of Systems Review of Systems Constitutional: no symptoms reported EENTM: no symptoms reported Respiratory: no symptoms reported Cardiovascular: no symptoms reported Gastrointestinal: no symptoms reported Genitourinary: see HPI Musculoskeletal: no symptoms reported Skin: no symptoms reported Psychiatric/Neurological: No Symptoms Reported Endocrine: No Symptoms Reported Past Ruswkic-Mazskz-Sfpgel Hx Seasonal Allergies Seasonal Allergies: Yes Past Medical History Surgeries: Yes (KIDNEY STONE REMOVAL X 1) Prostatectomy, Renal Respiratory: No Cardiac: Yes High Cholesterol, Hypertension Neurological: Yes Dementia Reproductive Disorders: No Sexually Transmitted Disease: No Genitourinary: Yes (BLADDER CANCER/PROSTATE CANCER; INCONTINENCE) Prostate Problems, Kidney Stones Gastrointestinal: No Musculoskeletal: No Endocrine: No HEENT: Yes Hearing Impairment: Hard of Hearing Cancer: Yes Bladder, Prostate Did You Recieve Any Treatments: Yes What Type of Treatment Did You: Chemotherapy, Radiation, Surgical Intervention Psychosocial: No Integumentary: No Blood Disorders: No Physical Exam Vital Signs Vital Signs - First Documented 08/20/21 11:22 Temp 36.6 Pulse 76 Resp 18 B/P (MAP) 158/82 (107) Pulse Ox 98 O2 Delivery Room Air Capillary Refill : Height, Weight, BMI Height: 6'11.00" Weight: 212lbs. oz. 96.555876aw; 29.01 BMI Method:Stated General Appearance: WD/WN, no apparent distress HEENT: PERRL/EOMI, normal ENT inspection Neck: full range of motion, normal inspection Cardiovascular: regular rate, rhythm, no edema Respiratory: lungs clear, normal breath sounds Gastrointestinal: normal bowel sounds, non tender, soft Back: normal inspection, no CVA tenderness Extremities: normal range of motion, non-tender, normal inspection Neurologic/Psychiatric: intake nurse II-XII nml as tested (grossly intact ), no motor/sensory deficits, alert, normal mood/affect, oriented x 3 Skin: normal color, warm/dry Progress/Results/Core Measures Suspected Sepsis SIRS Temperature: Pulse: Respiratory Rate: Blood Pressure / Mean: Results/Orders Lab Results Laboratory Tests Test 08/20/21 12:10 Range/Units Urine Color YELLOW Urine Clarity CLEAR Urine pH 8.0 5-9 Urine Specific [place] 1.015 L 1.016-1.022 Urine Protein 2+ H NEGATIVE Urine Glucose (UA) NEGATIVE NEGATIVE Urine Ketones NEGATIVE NEGATIVE Urine Nitrite POSITIVE H NEGATIVE Urine Bilirubin NEGATIVE NEGATIVE Urine Urobilinogen 0.2 < = 1.0 MG/DL Urine Leukocyte Esterase 2+ H NEGATIVE Urine RBC (Auto) 3+ H NEGATIVE Urine RBC 5-10 H /HPF Urine WBC 25-50 H /HPF Urine Squamous Epithelial Cells NONE /HPF Urine Crystals NONE /LPF Urine Bacteria LARGE H /HPF Urine Casts NONE /LPF Urine Mucus NEGATIVE /LPF Urine Culture Indicated YES Micro Results Microbiology 08/20/21 Urine Culture - Preliminary, Resulted Proteus mirabilis My Orders Orders - HENRIQUE KNIGHT APRN Bladder Scan (08/20/21 11:21) Straight Cath (Urinary) (08/20/21 11:48) Lidocaine 2% (Urojet) (Xylocaine Urojet) (08/20/21 12:00) Ua Culture If Indicated (08/20/21 11:50) Urine Culture (08/20/21 12:10) Ceftriaxone (Rocephin) (08/20/21 13:15) Lidocaine 1% Inj 20 Ml (Xylocaine 1% Inj (08/20/21 13:15) Vital Signs/I&O Capillary Refill : Departure Impression Primary Impression: Urinary tract infection Disposition: 01 HOME, SELF-CARE Condition: Improved Departure-Patient Inst. Decision time for Depature: 12:58 Referrals: ARVIN QUARLES MD (PCP/Family) Primary Care Physician Patient Instructions: Urinary Tract Infection, Adult ED Add. Discharge Instructions: Plan: 1. Take antibiotics twice a day as directed and complete full course. 2. Drink plenty of fluids to keep your urine pale yellow. 3. Schedule close follow up with your primary care provider next week. 4. We have culture pending and will notify you via telephone if we need to change your antibiotics. 5. Return for any new, concerning, or worsening symptoms. All discharge instructions reviewed with patient and/or family. Voiced understanding. Scripts Cephalexin (Cephalexin) 500 Mg Tablet 500 MG PO BID for 10 Days, #20 TAB 0 Refills Prov: HENRIQUE KNIGHT PHARMACY INTAKE TECHNICIAN 08/20/21 HENRIQUE KNIGHT PHARMACY INTAKE TECHNICIAN Aug 20, 2021 11:29
[2021-08-20] MEDS ORDERED: LIDOCAINE UROJET 2% GEL 10 ML PKG TOP ONE (12:00)
[2021-08-20 12:18] LABS: BILIRUBIN,URINE NEGATIVE (NEGATIVE); CLARITY,URINE CLEAR; COLOR,URINE YELLOW; GLUCOSE, URINE (UA) NEGATIVE (NEGATIVE); KETONES,URINE NEGATIVE (NEGATIVE); LEUKOCYTE ESTERASE ,URINE 2+ (NEGATIVE); NITRITE,URINE POSITIVE (NEGATIVE); PROTEIN,URINE 2+ (NEGATIVE)
[2021-08-20 12:35] LABS: BACTERIA,URINE LARGE /HPF; WBC,URINE 25-50 /HPF
[2021-08-20] MEDS ORDERED: CEPH500T PO (12:57)
[2021-08-20] MEDS ORDERED: LIDOCAINE 1% INJ 20 ML VIAL INJ ONE (13:15)
[2021-08-20] MEDS ORDERED: cefTRIAXone 1,000 MG VIAL IM ONE (13:15)
== END 2021-08-20 13:15 | disposition home or self-care (01) ==
LOC: EDUNIT# 10:42 → ER 10:43
DX: N39.0 Urinary tract infection, site not specified (principal); Z87.442 Personal history of urinary calculi; Z85.51 Personal history of malignant neoplasm of bladder; Z85.46 Personal history of malignant neoplasm of prostate; Z90.79 Acquired absence of other genital organ(s)
CPT/HCPCS: 81000; 87077; 87088; 87186; 99284

== ENCOUNTER 2022-05-31 09:40 | Emergency (ER) | payer BC, MEDICARE, OTHER ==
[~2022-05-31] VITALS: Ht 180.4 cm; Wt 80.7 kg
--- NOTE | 2022-05-31 10:04 | ED General ---
General Stated Complaint: HIGH BLOOD PRESSURE History of Present Illness Date Seen by Provider: May 31, 2022 Time Seen by Provider: 10:02 Initial Comments 89-year-old male sent in because his blood pressure was elevated. Patient reports that they took his blood pressure before his blood pressure medications this morning and it was systolic in the 180s. The he took his blood pressure and checked it around 9 that was still elevated. His called his primary care provider who sent him to the ER. Patient is not having any symptoms. Patient takes 40 lisinopril in the morning along with metoprolol. Patient reports that he feels is probably close to his normal now. No other systemic complaints Allergies and Home Medications Allergies Coded Allergies: No Known Drug Allergies (Unverified , 07/23/10) Patient Home Medication List Home Medication List Reviewed: Yes Aspirin (Aspirin) 81 Mg Tab.chew, 81 MG PO DAILY, (Reported) Entered as Reported by: DORIS OTOOLE on 09/05/16533 Calcium Carbonate (Calcium) 600 Mg Tablet, 2,400 MG PO DAILY, (Reported) Entered as Reported by: DORIS OTOOLE on 09/05/16533 Cephalexin (Cephalexin) 500 Mg Tablet, 500 MG PO BID Prescribed by: HENRIQUE KNIGHT on 08/20/21 1257 Donepezil HCl (Donepezil HCl) 10 Mg Tablet, 10 MG PO DAILY, (Reported) Entered as Reported by: DORIS OTOOLE on 09/05/16518 Lisinopril (Lisinopril) 40 Mg Tablet, 40 MG PO DAILY, (Reported) Entered as Reported by: DORIS OTOOLE on 09/05/16518 Magnesium Oxide (Magnesium) 400 Mg Capsule, 400 MG PO DAILY, (Reported) Entered as Reported by: DORIS OTOOLE on 09/05/16533 Multivit-Min/FA/Lycopene/Lut (Centrum Silver Tablet) 1 Each Tablet, 1 EACH PO DAILY, (Reported) Entered as Reported by: DORIS OTOOLE on 09/05/16533 Naproxen (Naproxen) 500 Mg Tablet, 500 MG PO BID Prescribed by: CARLOS MORRIS on 10/05/17 5089 Nitrofurantoin Monohyd/M-Cryst (Macrobid 100 mg Capsule) 100 Mg Capsule, 100 MG PO BID Prescribed by: CARLOS MORRIS on 10/05/172240 [place] 3 Polyunsat Fatty Acids (Fish Oil 1,000 mg Capsule) 1,000 Mg Cap, 1,000 MG PO BID, (Reported) Entered as Reported by: DORIS OTOOLE on 09/05/16518 Oxybutynin Chloride (Oxybutynin Chloride) 5 Mg Tablet, 5 MG PO BID, (Reported) Entered as Reported by: DORIS OTOOLE on 09/05/16518 Potassium Gluconate (Potassium Gluconate) 99 Mg Tablet.er, 99 MG PO DAILY, (Reported) Entered as Reported by: DORIS OTOOLE on 09/05/16533 Simvastatin (Simvastatin) 20 Mg Tablet, 10 MG PO DAILY, (Reported) Entered as Reported by: DORIS OTOOLE on 09/05/16518 Tramadol HCl (Ultram) 50 Mg Tablet, 50 MG PO Q4H Prescribed by: CARLOS MORRIS on 10/05/172240 Review of Systems Review of Systems Constitutional: no symptoms reported EENTM: no symptoms reported Respiratory: no symptoms reported Cardiovascular: no symptoms reported Gastrointestinal: no symptoms reported Genitourinary: no symptoms reported Musculoskeletal: no symptoms reported Skin: no symptoms reported Past Ofxiesa-Piamxb-Bsyxya Hx Seasonal Allergies Seasonal Allergies: Yes Past Medical History Surgeries: Yes (KIDNEY STONE REMOVAL X 1) Prostatectomy, Renal Respiratory: No Cardiac: Yes High Cholesterol, Hypertension Neurological: Yes Dementia Reproductive Disorders: No Sexually Transmitted Disease: No Genitourinary: Yes (BLADDER CANCER/PROSTATE CANCER; INCONTINENCE) Prostate Problems, Kidney Stones Gastrointestinal: No Musculoskeletal: No Endocrine: No HEENT: Yes Hearing Impairment: Hard of Hearing Cancer: Yes Bladder, Prostate Did You Recieve Any Treatments: Yes What Type of Treatment Did You: Chemotherapy, Radiation, Surgical Intervention Psychosocial: No Integumentary: No Blood Disorders: No Physical Exam Vital Signs Vital Signs - First Documented 05/31/22 05/31/22 09:55 11:20 Temp 36.7 Pulse 88 Resp 14 B/P (MAP) 165/90 (115) Pulse Ox 98 O2 Delivery Room Air Capillary Refill : Height, Weight, BMI Height: 6'11.00" Weight: 212lbs. oz. 96.484731kl; 26.00 BMI Method:Stated General Appearance: No Apparent Distress, WD/WN HEENT: PERRL/EOMI Respiratory: Lungs Clear Cardiovascular: Regular Rate, Rhythm, No Edema Gastrointestinal: Non Tender, Soft Extremity: Normal Capillary Refill, Normal Range of Motion Neurologic/Psychiatric: Alert, Oriented x3, No Motor/Sensory Deficits, Normal Mood/Affect, type photography supervisor II-XII Norm as Tested Progress/Results/Core Measures Suspected Sepsis SIRS Temperature: Pulse: Respiratory Rate: Laboratory Tests 05/31/22 10:10: White Blood Count 5.5 Blood Pressure / Mean: Laboratory Tests 05/31/22 10:10: Creatinine 1.12, Platelet Count 271, Total Bilirubin 0.8 Results/Orders Lab Results Laboratory Tests Test 05/31/22 10:10 Range/Units White Blood Count 5.5 4.3-11.0 10^3/uL Red Blood Count 4.84 4.30-5.52 10^6/uL Hemoglobin 15.0 13.3-17.7 g/dL Hematocrit 44 40-54 % Mean Corpuscular Volume 91 80-99 fL Mean Corpuscular Hemoglobin 31 25-34 pg Mean Corpuscular Hemoglobin Concent 34 32-36 g/dL Red Cell Distribution Width 14.3 10.0-14.5 % Platelet Count 271 130-400 10^3/uL Mean Platelet Volume 9.5 9.0-12.2 fL Immature Granulocyte % (Auto) 0 % Neutrophils (%) (Auto) 67 42-75 % Lymphocytes (%) (Auto) 22 12-44 % Monocytes (%) (Auto) 9 0-12 % Eosinophils (%) (Auto) 1 0-10 % Basophils (%) (Auto) 0 0-10 % Neutrophils # (Auto) 3.6 1.8-7.8 10^3/uL Lymphocytes # (Auto) 1.2 1.0-4.0 10^3/uL Monocytes # (Auto) 0.5 0.0-1.0 10^3/uL Eosinophils # (Auto) 0.1 0.0-0.3 10^3/uL Basophils # (Auto) 0.0 0.0-0.1 10^3/uL Immature Granulocyte # (Auto) 0.0 0.0-0.1 10^3/uL Sodium Level 142 135-145 MMOL/L Potassium Level 4.3 3.6-5.0 MMOL/L Chloride Level 109 H 98-107 MMOL/L Carbon Dioxide Level 27 21-32 MMOL/L Anion Gap 6 5-14 MMOL/L Blood Urea Nitrogen 24 H 7-18 MG/DL Creatinine 1.12 0.60-1.30 MG/DL Estimat Glomerular Filtration Rate 63 BUN/Creatinine Ratio 21 Glucose Level 116 H 70-105 MG/DL Calcium Level 8.8 8.5-10.1 MG/DL Corrected Calcium 9.0 8.5-10.1 MG/DL Total Bilirubin 0.8 0.1-1.0 MG/DL Aspartate Amino Transf (AST/SGOT) 12 5-34 U/L Alanine Aminotransferase (ALT/SGPT) 18 0-55 U/L Alkaline Phosphatase 57 40-136 U/L Total Protein 5.9 L 6.4-8.2 GM/DL Albumin 3.7 3.2-4.5 GM/DL My Orders Orders - EDER MOORE DO Cbc With Automated Diff (05/31/22 10:04) Comprehensive Metabolic Panel (05/31/22 10:04) Vital Signs/I&O 05/31/22 05/31/22 09:55 11:20 Temp 36.7 36.3 Pulse 88 76 Resp 14 15 B/P (MAP) 165/90 (115) 155/86 Pulse Ox 98 O2 Delivery Room Air Room Air Capillary Refill : Progress Note : Progress Note Patient's diagnostic studies were ordered reviewed and interpreted by me. Patient shows no acute findings on his labs. Patient's blood pressure was in the systolics of around 160 over 90s. Patient currently on medication is just recently taken his morning meds. Patient reports this is near his baseline. He is not having any concerning symptoms or findings on physical exam. Patient needs to follow-up with his primary care provider for evaluation of his medications and for further outpatient management of his known chronic high blood pressure. Patient was stable and discharged Departure Impression Primary Impression: Hypertension Qualified Codes: I10 - Essential (primary) hypertension Disposition: 01 HOME, SELF-CARE Condition: Stable Departure-Patient Inst. Referrals: ARVIN QUARLES MD (PCP/Family) Primary Care Physician Patient Instructions: Medicines for High Blood Pressure, High Blood Pressure ED Add. Discharge Instructions: Please follow-up with your primary care provider to have them adjust your blood pressure medication as they feel is necessary EDER MOORE DO May 31, 2022 10:04
[2022-05-31 10:20] LABS: BASOPHILS % (AUTO) 0 % (0-10); EOSINOPHILS # (AUTO) 0.1 10^3/uL (0.0-0.3); EOSINOPHILS % (AUTO) 1 % (0-10); HEMATOCRIT 44 % (40-54); LYMPHOCYTES # (AUTO) 1.2 10^3/uL (1.0-4.0); LYMPHOCYTES % (AUTO) 22 % (12-44); MEAN CORPUSCULAR HEMOGLOBIN 31 pg (25-34); MEAN CORPUSCULAR HGB CONC 34 g/dL (32-36); MEAN CORPUSCULAR VOLUME 91 fL (80-99); MEAN PLATELET VOLUME 9.5 fL (9.0-12.2); MONOCYTES # (AUTO) 0.5 10^3/uL (0.0-1.0); MONOCYTES % (AUTO) 9 % (0-12); NEUTROPHILS # (AUTO) 3.6 10^3/uL (1.8-7.8); NEUTROPHILS % (AUTO) 67 % (42-75); PLATELET COUNT 271 10^3/uL (130-400); WHITE BLOOD COUNT 5.5 10^3/uL (4.3-11.0)
[2022-05-31 10:50] LABS: ALBUMIN 3.7 GM/DL (3.2-4.5); POTASSIUM 4.3 MMOL/L (3.6-5.0)
[2022-05-31 10:52] LABS: CALCIUM 8.8 MG/DL (8.5-10.1)
[2022-05-31 10:53] LABS: TOTAL PROTEIN 5.9 GM/DL (6.4-8.2)
[2022-05-31 10:54] LABS: BILIRUBIN,TOTAL 0.8 MG/DL (0.1-1.0)
[2022-05-31 10:56] LABS: CREATININE SERUM 1.12 MG/DL (0.60-1.30)
[2022-05-31 11:20] VITALS: BP 155/86
== END 2022-05-31 11:20 | disposition home or self-care (01) ==
LOC: EDUNIT# 09:40 → ER 09:42
DX: I10 Essential (primary) hypertension (principal); Z79.899 Other long term (current) drug therapy
CPT/HCPCS: 36415; 80053; 85025